=== PATIENT | male | born 1950 | race African-American/Black ===

== ENCOUNTER 2019-04-06 23:18 | Emergency (ER) | payer MEDICARE, MEDICAID ==
[~2019-04-06] VITALS: Ht 167.6 cm; Wt 70.3 kg
[~2019-04-06 23:18] MED LIST: AZITHROMYCIN250 MG ORAL; ROBITUSSIN DM5 ML ORAL; TYLENOL325 MG ORAL
[2019-04-06] MEDS ORDERED: Pantoprazole Inj IVP ONE (23:45)
[2019-04-06] MEDS ORDERED: Nitroglycerin Subl 0.4mg tab SL PRN (23:45)
[2019-04-06] MEDS ORDERED: Aspirin Baby 81mg ORAL ONE (23:45)
--- NOTE | 2019-04-06 23:45 | NUR ---
ED Nurse Note: recieved pt from home, here with c/o chest pain x 2 days intermittently, is currently present, aching at 9/10, pt has high anxiety and while trying to assess is having argument with at bedside, pt assisted to gown and cardiac monitoring, iv line placed also and labs drawn, no sob or labored breathing or any other discomforts reported, will continue to closely monitor and resume care as ordered.
--- NOTE | 2019-04-06 23:47 | Emergency Room Report ---
History of Present Illness General Chief Complaint: Chest Pain Source: Patient Present Illness HPI This is a 69-year-old male with history diabetes and high blood pressure. He presents with chief complaint of chest pain. Onset was 45 minutes ago. Woke him up from sleep. Pain is missed sternal area. Radiating to the left shoulder. No nausea no vomiting. Slight shortness of breath and diaphoresis. No exertional component. Rest made it better. He has a history of reflux and gas for which he took Pepto-Bismol. Never had this problem before. Pain was initially 8 out of 10. Now 4 out of 10. Allergies: Coded Allergies: No Known Allergies (Unverified , 11/16/14) Patient History Past Medical History: see triage record, old chart reviewed, DM, HTN Past Surgical History: other Pertinent Family History: none Social History: Denies: smoking - Quit 20 years ago Immunizations: other Reviewed Nursing Documentation: PMH: Agreed; PSxH: Agreed Nursing Documentation-PMH Hx Cardiac Problems: Yes Hx Hypertension: Yes Hx Diabetes: Yes Review of Systems Eye: Denies: eye pain, blurred vision ENT: Denies: ear pain, nose congestion, throat swelling Respiratory: Denies: cough, shortness of breath Cardiovascular: Reports: chest pain; Denies: palpitations Gastrointestinal: Denies: abdominal pain, diarrhea, nausea, vomiting Musculoskeletal: Denies: back pain, joint pain Skin: Denies: rash Neurological: Denies: headache, numbness Endocrine: Denies: increased thirst, increased urine Hematologic/Lymphatic: Denies: easy bruising All Other Systems: negative except mentioned in HPI Physical Exam Vital Signs Date Time Temp Pulse Resp B/P (MAP) Pulse Ox O2 Delivery O2 Flow Rate FiO2 04/06/19 23:28 74 27 150/54 (86) 100 vitals with high blood pressure Sp02 EP Interpretation: reviewed, normal General Appearance: well appearing, no apparent distress, alert Head: normocephalic, atraumatic Eyes: bilateral eye PERRL, bilateral eye EOMI ENT: hearing grossly normal, normal pharynx Neck: full range of motion, supple, no meningismus Respiratory: chest non-tender, lungs clear, normal breath sounds Cardiovascular #1: regular rate, rhythm, no murmur Gastrointestinal: normal bowel sounds, non tender, no mass, no organomegaly, no bruit, non-distended Musculoskeletal: back normal, gait/station normal, normal range of motion Psychiatric: mood/affect normal Skin: warm/dry Medical Decision Making Diagnostic Impression: Primary Impression: Chest pain Qualified Codes: R07.9 - Chest pain, unspecified Additional Impression: ACS (acute coronary syndrome) ER Course Patient presents with chest pain and needing to his left shoulder. Pain resolved after aspirin and nitroglycerin. His risk factors include his age, male sex, high blood pressure, and diabetes. Based on his risk factors, I advised him to be admitted to the hospital for further workup. Patient refused. He does discussed it and they wanted to leave AMA. I contact his doctor to let him know. He will need further workup as an outpatient. She is competent to sign out AMA. Lab Results Impression labs normal EKG Diagnostic Results Rate: normal Rhythm: NSR ST Segments: no acute changes ASA given to the pt in ED: Yes Rhythm Strip Diag. Results EP Interpretation: yes Rate: 72 Rhythm: NSR, no PVC's, no ectopy Chest X-Ray Diagnostic Results Chest X-Ray Diagnostic Results : Chest X-Ray Ordered: Yes # of Views/Limited/Complete: 1 View Indication: Chest Pain EP Interpretation: Yes Interpretation: no consolidation, no effusion, no pneumothorax, no acute cardiopulmonary disease Impression: No acute disease Electronically Signed by: Hao Jeter MD Last Vital Signs Date Time Temp Pulse Resp B/P (MAP) Pulse Ox O2 Delivery O2 Flow Rate FiO2 04/06/19 23:28 74 27 150/54 (86) 100 Status: improved Disposition: AGAINST MEDICAL ADVICE Condition: Stable Patient Instructions: Nonspecific Chest Pain Additional Instructions: You presents with chest pain. Basically her risk factors, I recommend admission to the hospital for further workup. You are signing AGAINST MEDICAL ADVICE. He see her doctor as soon as possible for further workup. Return if change her mind. Call 911 if you continue to have chest pain. Hao Jeter MD April 06, 2019 23:47
[2019-04-06 23:51] LABS: EOSINOPHILS % (AUTO) 1.7 % (0.0-3.0); HEMATOCRIT 38.4 % (42.0-52.0); HEMOGLOBIN 13.2 G/DL (14.2-18.0); LYMPHOCYTES % (AUTO) 26.8 % (20.0-45.0); MEAN CORPUSCULAR VOLUME 88 FL (80-99); MONOCYTES % (AUTO) 8.8 % (1.0-10.0); NEUTROPHILS % (AUTO) 61.8 % (45.0-75.0); PLATELET COUNT 218 K/UL (150-450); RED BLOOD COUNT 4.39 M/UL (4.70-6.10); RED CELL DISTRIBUTION WIDTH 11.8 % (11.6-14.8); WHITE BLOOD COUNT 7.1 K/UL (4.8-10.8)
[2019-04-07 00:01] LABS: ANION GAP 4 mmol/L (5-15); BLOOD UREA NITROGEN 18 mg/dL (7-18); CALCIUM 8.9 MG/DL (8.5-10.1); CARBON DIOXIDE 33 MMOL/L (21-32); CHLORIDE 103 MMOL/L (98-107); CREATININE 1.2 MG/DL (0.55-1.30); POTASSIUM 4.1 MMOL/L (3.5-5.1); SODIUM 139 MMOL/L (136-145)
[2019-04-07 00:15] LABS: ALANINE AMINOTRANSFERASE 27 U/L (12-78); ALBUMIN 3.8 G/DL (3.4-5.0); ALBUMIN/GLOBULIN RATIO 1.1 (1.0-2.7); ALKALINE PHOSPHATASE 61 U/L (46-116); ASPARTATE AMINO TRANSFERASE 20 U/L (15-37); BILIRUBIN,TOTAL 0.4 MG/DL (0.2-1.0); CKMB 1.6 NG/ML (0.0-3.6); CREATINE KINASE 82 U/L (26-308)
[2019-04-07 00:45] VITALS: BP 138/53
--- NOTE | 2019-04-07 01:00 | NUR ---
ED Nurse Note: PT IS BEING D/C TO HOME, PT DOES NOT WANT TO STAY IN HOSPITAL OVERNIGHT, MD SPOKE WITH PT AND , PT IS BEING D/C TO F/U WITH PMD, PT IS AWAKE AND ALERT, AMBULATORY WITH STEADY GAIT, NO SOB OR LABORED BREATHIHNG, SKIN IS WARM AND DRY, IV LINE REMOVED WITHOUT COMPLICATIONS OR BLEEDING, ARMBAND ALSO, NAD NOTED DURING D/C TO HOME.
[2019-04-07 01:03] VITALS: BP 138/53
--- NOTE | 2019-04-07 14:39 | Cardiology Report ---
APPROVED REPORT EKG Measurement Heart [id number] Normal sinus rhythm Minimal voltage criteria for LVH, may be normal variant Borderline ECG
--- NOTE | 2019-04-08 13:14 | Diagnostic Imaging Report ---
EXAM: XR Chest, 1 View CLINICAL HISTORY: SOB TECHNIQUE: Frontal view of the chest. COMPARISON: No relevant prior studies available. FINDINGS: Lungs: Unremarkable. No consolidation. Pleural space: Unremarkable. No pneumothorax. Heart: Unremarkable. No cardiomegaly. Mediastinum: Unremarkable. Bones/joints: Unremarkable. IMPRESSION: Normal chest x-ray.
== END 2019-04-07 01:05 | disposition left against medical advice (07) ==
LOC: EMR 23:50
DX: R07.9 Chest pain, unspecified (principal); I24.9 Acute ischemic heart disease, unspecified; I10 Essential (primary) hypertension; E11.9 Type 2 diabetes mellitus without complications; Z87.891 Personal history of nicotine dependence; M25.512 Pain in left shoulder
CPT/HCPCS: 36415; 71045; 80053; 82550; 82553; 84484; 85025; 93005; 96361; 96374; 99284; C9113

== ENCOUNTER 2019-12-06 17:14 | Inpatient (IN) | payer MEDICARE, MEDICAID ==
[~2019-12-06] VITALS: Ht 167.6 cm; Wt 72.6 kg
--- NOTE | 2019-12-06 17:29 | Emergency Room Report ---
History of Present Illness General Chief Complaint: To Be Triaged Source: Patient (Ruben Garland MD) Present Illness HPI Patient presents with severe epigastric and chest pain radiating to his shoulder on the left-hand side. He had this 3 years ago was evaluated at [facility]. He says that it was his stomach. Patient is diabetic. He does not smoke. He says his is not been his heart in the past. The pain began suddenly today. It is sharp and pressure. He denies fevers, nausea, vomiting, diarrhea. His family report that he is stoic and does not complain about pain usually. Patient is a diabetic. No polyuria or polydipsia. Patient reports problems with his prostate. He is on medication. No sore throat, palpitations, dysuria, shortness of breath, joint pain, rashes, depression, anxiety, visual changes, dizziness, headache. (Ruben Garland MD) Allergies: Coded Allergies: No Known Allergies (Unverified , 11/16/14) Patient History Past Medical History: see triage record Social History: Denies: smoking Social History Narrative Working Reviewed Nursing Documentation: PMH: Agreed; PSxH: Agreed (Ruben Garland MD) Nursing Documentation-PMH Hx Cardiac Problems: Yes Hx Hypertension: Yes Hx Diabetes: Yes (Ruben Garland MD) Review of Systems All Other Systems: negative except mentioned in HPI (Ruben Garland MD) Physical Exam Vital Signs Date Time Temp Pulse Resp B/P (MAP) Pulse Ox O2 Delivery O2 Flow Rate FiO2 12/06/20 17:25 97.5 75 18 188/65 (106) 100 Room Air Sp02 EP Interpretation: reviewed, normal General Appearance: alert, GCS 15, non-toxic, mild distress Head: normocephalic Eyes: bilateral eye normal inspection, bilateral eye PERRL, bilateral eye EOMI ENT: moist mucus membranes Neck: supple Respiratory: lungs clear, normal breath sounds Cardiovascular #1: regular rate, rhythm Cardiovascular #2: 2+ radial (R) Gastrointestinal: normal inspection, no mass, non-distended, no guarding, no rebound, tenderness - Epigastric Genitourinary: no CVA tenderness Musculoskeletal: back normal, normal range of motion Neurologic: alert, oriented x3, grossly normal Psychiatric: anxious - In pain Skin: no rash, warm/dry (Ruben Garland MD) Medical Decision Making Diagnostic Impression: Primary Impression: Chest pain Qualified Codes: R07.9 - Chest pain, unspecified Additional Impressions: Epigastric pain Elevated liver function tests Hyperglycemia Fever Qualified Codes: R50.9 - Fever, unspecified Cholecystitis, acute with cholelithiasis Qualified Codes: K80.00 - Calculus of gallbladder with acute cholecystitis without obstruction ER Course Patient presents with severe epigastric and left-sided chest pain. Differential includes acute myocardial infarction, gastritis, esophageal reflux , pneumothorax, pulmonary embolus amongst others. Clinically this does not appear to be a pulmonary embolus. Patient evaluated with EKG, chest x-ray and labs. 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 The patient will be given a GI cocktail and aspirin and morphine with Zofran Patient was in severe distress. Dilaudid given with Reglan and Benadryl. EKG without injury but ST changes septally. Chest x-ray unremarkable. Normal white count. Glucose 220. Elevated liver function tests but normal alk phos and bilirubin. Lipase normal. Pain improved. CT with gallbladder process. Given normal alk phos and bilirubin doubt primary gallbladder issue. The patient reports that the pain was more epigastric and right upper quadrant. According to the son who is MD surgeon he states that there was an abnormal finding in the gallbladder in the past. Patient needs admission for observation due to the level of distress which is resolved at this time. Consideration for repeat troponins, echocardiogram cardia cardiology consult and possible ultrasound of the right upper quadrant. Patient's physician asked that we admit to Dr. Goodson. Patient now with fever. Also O2 sat decreased. Septic w/u. Tylenol and antibiotics ordered. Fluid bolus and hydration also ordered. Signed out to Dr. Jeter for review of ultrasound. Abdomen is soft without guarding or rebound. Nonsurgical. Laboratory Tests Test 12/06/19 17:34 White Blood Count 9.9 K/UL (4.8-10.8) Red Blood Count 4.46 M/UL (4.70-6.10) L Hemoglobin 14.0 G/DL (14.2-18.0) L Hematocrit 40.0 % (42.0-52.0) L Mean Corpuscular Volume 90 FL (80-99) Mean Corpuscular Hemoglobin 31.3 PG (27.0-31.0) H Mean Corpuscular Hemoglobin Concent 34.9 G/DL (32.0-36.0) Red Cell Distribution Width 11.9 % (11.6-14.8) Platelet Count 241 K/UL (150-450) Mean Platelet Volume 7.2 FL (6.5-10.1) Neutrophils (%) (Auto) 77.6 % (45.0-75.0) H Lymphocytes (%) (Auto) 15.4 % (20.0-45.0) L Monocytes (%) (Auto) 6.2 % (1.0-10.0) Eosinophils (%) (Auto) 0.4 % (0.0-3.0) Basophils (%) (Auto) 0.5 % (0.0-2.0) Prothrombin Time 10.1 SEC (9.30-11.50) Prothrombin Time INR 0.9 (0.9-1.1) Activated Partial Thromboplast Time 26 SEC (23-33) Sodium Level 141 MMOL/L (136-145) Potassium Level 3.9 MMOL/L (3.5-5.1) Chloride Level 103 MMOL/L (98-107) Carbon Dioxide Level 29 MMOL/L (21-32) Anion Gap 9 mmol/L (5-15) Blood Urea Nitrogen 17 mg/dL (7-18) Creatinine 1.3 MG/DL (0.55-1.30) Estimate Glomerular Filtration Rate > 60 mL/min (>60) Glucose Level 220 MG/DL (74-106) H Calcium Level 9.0 MG/DL (8.5-10.1) Magnesium Level 2.0 MG/DL (1.8-2.4) Total Bilirubin 1.3 MG/DL (0.2-1.0) H Direct Bilirubin 0.8 MG/DL (0.0-0.3) H Aspartate Amino Transferase (AST) 375 U/L (15-37) H Alanine Aminotransferase (ALT) 189 U/L (12-78) H Alkaline Phosphatase 82 U/L (46-116) Total Creatine Kinase 76 U/L (26-308) Troponin I 0.000 ng/mL (0.000-0.056) Pro-B-Type Natriuretic Peptide 82 pg/mL (0-125) Total Protein 7.8 G/DL (6.4-8.2) Albumin 4.0 G/DL (3.4-5.0) Globulin 3.8 g/dL Albumin/Globulin Ratio 1.1 (1.0-2.7) Lipase 98 U/L (73-393) (Ruben Garland MD) ER Course Patient signed out to me. He is awaiting a bed. He spiked a fever here and ultrasound was ordered. Ultrasound show small gallstone in the gallbladder. Gallbladder wall measures 6 mm in maximal thickness. There is trace pericholecystic fluid. Antibiotics are restarted on this patient. Family said that he has a history of problem with the gallbladder and was admitted at [facility] before. Asked to be transferred to [facility]. I called [facility] transfer center and there is no beds. Because of this, patient will be admitted here. Chest pain is probably secondary to cholecystitis. (Hao Jeter MD) EKG Diagnostic Results Rate: normal Rhythm: NSR ST Segments: other - Nonspecific ST-T wave changes with septal ST depression minimal (Ruben Garland MD) Rhythm Strip Diag. Results EP Interpretation: yes Rhythm: NSR, no PVC's, no ectopy (Ruben Garland MD) Chest X-Ray Diagnostic Results Chest X-Ray Diagnostic Results : Chest X-Ray Ordered: Yes # of Views/Limited/Complete: 1 View Indication: Chest Pain EP Interpretation: Yes Interpretation: no effusion, no pneumothorax, other - Atelectasis left base Impression: Other Electronically Signed by: Electronically signed by Ruben Garland MD (Ruben Garland MD) CT/MRI/US Diagnostic Results CT/MRI/US Diagnostic Results : Imaging Test Ordered: abd/pelvis Impression 15 mm polyp versus sludge ball versus stone in the body of the gallbladder. Suspect trace of pericholecystic fluid. (Ruben Garland MD) CT/MRI/US Diagnostic Results : Imaging Test Ordered: Ultrasound Impression Read by nurse educator. Small gallstone in the gallbladder. Trace pericholecystic fluid. (Hao Jeter MD) Last Vital Signs Date Time Temp Pulse Resp B/P (MAP) Pulse Ox O2 Delivery O2 Flow Rate FiO2 12/07/19 00:45 98.2 109 19 133/53 94 Room Air Status: improved (Ruben Garland MD) Disposition: PLACE IN OBSERVATION Condition: Serious Ruben Garland MD Dec 06, 2019 17:29 Hao Jeter MD Dec 07, 2019 00:37
[2019-12-06] MEDS ORDERED: Aspirin Baby 81mg ORAL ONE (17:30)
[2019-12-06] MEDS ORDERED: Lidocaine 2% Visc 15ml soln ORAL ONE (17:30)
[2019-12-06] MEDS ORDERED: Morphine Sulfate 4mg/ml Inj (IV USE ONLY) IVP ONE (17:30)
[2019-12-06] MEDS ORDERED: Mylanta II UD 30ml ORAL ONE (17:30)
--- NOTE | 2019-12-06 17:30 | NUR ---
ED Nurse Note: Patient walked in from home c/o abdominal pain, CP x 1 hr radiating to lower back while at work. Pt rates pain at 10/10. Pt is screaming and moaning in pain. Respirations tachy, O2 saturation above 94%. BP in 180s systolic. Pt placed in monitor bed.
[2019-12-06 17:40] VITALS: BP 188/65
[2019-12-06] MEDS ORDERED: Metoclopramide 10mg/2ml Inj IVP ONE (18:00)
[2019-12-06] MEDS ORDERED: HYDROmorphone 1mg/ml Carpuject IVP ONE (18:00)
[2019-12-06] MEDS ORDERED: DiphenhydrAMINE 50mg/ml Inj IVP ONE (18:00)
--- NOTE | 2019-12-06 18:13 | NUR ---
ED Nurse Note: Let EDMD know patient was still in severe pain. New orders for pain medication carried out.
--- NOTE | 2019-12-06 18:23 | Diagnostic Imaging Report ---
EXAM: XR Chest, 1 View CLINICAL HISTORY: CP TECHNIQUE: Frontal view of the chest. COMPARISON: 04/06/19 FINDINGS: Lungs: Subtle linear opacities over bilateral lower lung zones. Lungs are underinflated. Pleural space: Unremarkable. No pneumothorax. Heart: Unremarkable. No cardiomegaly. Mediastinum: Unremarkable. Bones/joints: Unremarkable. IMPRESSION: Likely bibasilar atelectasis related to underinflation.
[2019-12-06 18:25] LABS: BASOPHILS % (AUTO) 0.5 % (0.0-2.0); EOSINOPHILS % (AUTO) 0.4 % (0.0-3.0); LYMPHOCYTES % (AUTO) 15.4 % (20.0-45.0); MEAN CORPUSCULAR VOLUME 90 FL (80-99); MONOCYTES % (AUTO) 6.2 % (1.0-10.0); NEUTROPHILS % (AUTO) 77.6 % (45.0-75.0); PLATELET COUNT 241 K/UL (150-450); RED BLOOD COUNT 4.46 M/UL (4.70-6.10); RED CELL DISTRIBUTION WIDTH 11.9 % (11.6-14.8); WHITE BLOOD COUNT 9.9 K/UL (4.8-10.8)
[2019-12-06 18:44] LABS: INR 0.9 (0.9-1.1)
[2019-12-06] MEDS ORDERED: Omnipaque-300 100ml vial INJ PRN (18:45)
[2019-12-06 18:59] LABS: ANION GAP 9 mmol/L (5-15); BLOOD UREA NITROGEN 17 mg/dL (7-18); CARBON DIOXIDE 29 MMOL/L (21-32); CHLORIDE 103 MMOL/L (98-107); CREATININE 1.3 MG/DL (0.55-1.30); POTASSIUM 3.9 MMOL/L (3.5-5.1); SODIUM 141 MMOL/L (136-145)
[2019-12-06 19:10] LABS: ALANINE AMINOTRANSFERASE 189 U/L (12-78); ALBUMIN/GLOBULIN RATIO 1.1 (1.0-2.7); ALKALINE PHOSPHATASE 82 U/L (46-116); ASPARTATE AMINO TRANSFERASE 375 U/L (15-37); BILIRUBIN,TOTAL 1.3 MG/DL (0.2-1.0); CREATINE KINASE 76 U/L (26-308)
[2019-12-06 19:11] LABS: BILIRUBIN,DIRECT 0.8 MG/DL (0.0-0.3)
--- NOTE | 2019-12-06 19:26 | NUR ---
HAND-OFF: Report given to AYAKA Zapata. Pt in stable condition; plan of care endorsed.
--- NOTE | 2019-12-06 20:10 | NUR ---
ED Nurse Note: Patient went over for CT.
--- NOTE | 2019-12-06 20:32 | NUR ---
ED Nurse Note: Patient returned from CT.
--- NOTE | 2019-12-06 21:17 | Diagnostic Imaging Report ---
EXAM: CT Abdomen and Pelvis With Intravenous Contrast CLINICAL HISTORY: Patient complaining of chest and abdominal pain for one hour. Radiating to lower back. Not clear of what kind of work he has. No other history given. TECHNIQUE: Axial computed tomography images of the abdomen and pelvis with intravenous contrast. CTDI is 23.6 mGy and DLP is 1416.1 mGy-cm. One or more of the following dose reduction techniques were used: automated exposure control, adjustment of the mA and/or kV according to patient size, use of iterative reconstruction technique. Coronal and sagittal reconstructions are performed COMPARISON: No relevant prior studies available. FINDINGS: Lung bases: Small amount of residual atelectasis. ABDOMEN: Liver: Unremarkable. No mass. Gallbladder and bile ducts: 15 mm polyps, sludge ball versus stone in the body of the gallbladder, best seen on series image 27. Suspect trace of pericholecystic fluid. Moderate common duct dilatation measuring up in maximum, likely patient's age. Pancreas: Unremarkable. No mass. No ductal dilation. Spleen: Unremarkable. No splenomegaly. Adrenals: Unremarkable. No mass. Kidneys and ureters: Unremarkable. No solid mass. No hydronephrosis. Stomach and bowel: Unremarkable. No obstruction. No mucosal thickening. PELVIS: Appendix: No findings to suggest acute appendicitis. Bladder: Unremarkable. No mass. Reproductive: Prostatectomy ABDOMEN and PELVIS: Intraperitoneal space: Unremarkable. No free air. No significant fluid collection. Bones/joints: Osteopenia. Moderate degenerative change. Soft tissues: Unremarkable. Vasculature: Moderate amount of atherosclerotic calcifications. No abdominal aortic aneurysm. Lymph nodes: Unremarkable. No enlarged lymph nodes. IMPRESSION: 15 mm polyps, sludge ball versus stone in the body of the gallbladder. Suspect trace of pericholecystic fluid. These findings are nonspecific.
--- NOTE | 2019-12-06 22:24 | NUR ---
ED Nurse Note: PATIENT RESTING COMFORTABLY WITH SON AT BEDSIDE, VITAL SIGNS STABLE AND DOCUMENTED. WILL CONTINUE TO MONITOR.
[2019-12-06 22:25] VITALS: BP 131/53
--- NOTE | 2019-12-06 22:33 | NUR ---
ED Nurse Note: PATIENT IS FEBRILE AND TACHYCARDIC, ERMD INFORMED AND FULL VITAL SIGNS DOCUMENTED.
[2019-12-06] MEDS ORDERED: Cefepime HCl 1 GM in D5W 55 ML IVPB ONE (22:45)
--- NOTE | 2019-12-06 23:30 | NUR ---
ED Nurse Note: Patient went with radiology special procedure tech for lefty.
--- NOTE | 2019-12-06 23:59 | NUR ---
ED Nurse Note: Patoent returned from ultrasound.
--- NOTE | 2019-12-07 00:19 | Diagnostic Imaging Report ---
EXAM: US Abdomen Complete CLINICAL HISTORY: ABD PAIN TECHNIQUE: Real-time ultrasound of the abdomen with image documentation. COMPARISON: CT abdomen and pelvis from 12/06/2019. FINDINGS: Liver: Liver measures 14.8 cm longitudinally. No intrahepatic bile duct dilation. Gallbladder: Small stones in the gallbladder. Gallbladder wall measures 6 mm in maximal thickness. No sonographic Harper sign. However, patient is medicated. Trace pericholecystic fluid, nonspecific. Common bile duct: Common bile duct measures 2 mm in maximum diameter. No stones. No dilation. Pancreas: Unremarkable as visualized. Kidneys: Right kidney measures 11 cm longitudinally. Left kidney measures 10.8 cm longitudinally. No stones. No hydronephrosis. Spleen: Unremarkable. No splenomegaly. Aorta: Unremarkable. No aneurysm. Inferior vena cava: Unremarkable. IMPRESSION: 1. Small stones in the gallbladder. 2. Gallbladder wall measures 6 mm in maximal thickness. 3. Trace of pericholecystic fluid. 4. These findings are nonspecific.
--- NOTE | 2019-12-07 00:24 | NUR ---
Contacted [facility] for possible transfer(pt.request)-no beds at [facility]- aware.
--- NOTE | 2019-12-07 00:36 | NUR ---
ED Nurse Note: Both antibiotics dne, IV fluid still running, IV patent but runs slow. Will continue to monitor.
[2019-12-07 00:45] VITALS: BP 133/53
[2019-12-07 01:09] LABS: APPEARANCE,URINE CLEAR; BILIRUBIN, URINE NEGATIVE (NEGATIVE); GLUCOSE, URINE (UA) NEGATIVE (NEGATIVE); KETONES,URINE NEGATIVE (NEGATIVE); LEUKOCYTE ESTERASE ,URINE NEGATIVE (NEGATIVE); NITRITE,URINE NEGATIVE (NEGATIVE); PH,URINE 6.5 (4.5-8.0); PROTEIN,URINE NEGATIVE (NEGATIVE); UROBILINOGEN,URINE NORMAL MG/DL (0.0-1.0)
[2019-12-07 01:10] LABS: COLOR,URINE YELLOW
--- NOTE | 2019-12-07 01:25 | NUR ---
ED Nurse Note: Called and rendered report to Sigrid MARLEY.
--- NOTE | 2019-12-07 01:30 | NUR ---
ED Nurse Note: Patient transported to [facility] without incident with fluids running, 500ml N/S. Patient's wallet along with 3x visas, 3x [employer] cards and 1 [employer], and $92.00 taken by patient's son at bedside.
--- NOTE | 2019-12-07 01:59 | NUR ---
NURSE NOTES: Received patient in bed from ED, transported via gurney, son is at the bedside, patient is awake, alert, oriented x 4, speaks Farsi and Armenian, ambulates with steady gate. IV site is clean dry and intact. Oriented to the room,call light is within reach, bed is lowered, locked and alarm is on. MD called for admit orders. belongings list is signed, items are accounted for.
[2019-12-07 04:00] VITALS: BP 111/53
--- NOTE | 2019-12-07 05:11 | NUR ---
NURSE NOTES: Called MD for admit orders, left a voice message
--- NOTE | 2019-12-07 07:35 | NUR ---
NURSE NOTES: Received report from AYAKA Matta. Rounding done with outgoing nurse. Pt is asleep. Bed in lowest position, call light within reach. Will continue to monitor.
--- NOTE | 2019-12-07 07:50 | NUR ---
NURSE NOTES: Dr. Goodson ordered admin ordered by phone. All order read back and will put it in.
[2019-12-07 08:00] VITALS: BP 135/56
[2019-12-07] MEDS ORDERED: DiphenhydrAMINE 25mg Tab ORAL PRN (08:15)
[2019-12-07] MEDS ORDERED: Nitroglycerin Subl 0.4mg tab SL PRN (08:15)
[2019-12-07] MEDS ORDERED: Miralax 17gm pkt ORAL PRN (08:15)
[2019-12-07] MEDS ORDERED: Morphine Sulfate 2mg/ml Inj(IV/IM USE ONLY) IVP PRN (08:30)
--- NOTE | 2019-12-07 08:50 | NUR ---
NURSE NOTES: Patient transferred to room 202-2 in stable condition. Patient still asleep. No chest pain noted. Report was given to Christiano, charge nurse. and daughter is at bedside.
[2019-12-07] MEDS ORDERED: D5 1/2NS 1,000 ML IV SCH (09:00)
[2019-12-07] MEDS: Pantoprazole Inj IVP SCH (09:03)
[2019-12-07] MEDS: Heparin 5000 units/ml inj SUBQ SCH ×2 (09:04→21:00)
[2019-12-07] MEDS: Cefepime HCl 1 GM in D5W 55 ML IVPB SCH ×2 (09:56→20:58)
[2019-12-07 10:43] LABS: ANION GAP 11 mmol/L (5-15); BLOOD UREA NITROGEN 17 mg/dL (7-18); CARBON DIOXIDE 26 MMOL/L (21-32); CHLORIDE 107 MMOL/L (98-107); CREATININE 1.3 MG/DL (0.55-1.30); POTASSIUM 3.9 MMOL/L (3.5-5.1); SODIUM 144 MMOL/L (136-145)
--- NOTE | 2019-12-07 10:56 | NUR ---
NURSE NOTES: Received pt from [facility] at 0900, pt is sleeping, pt is in RA, no SOB or acute respiratory distress noted. pt has intact iv access LAC 20G is running well. pt's and daughter are on bed side. pt is NPO, Dr davila notified regarding troponin 0.063, waiting to call back. all needs attended, bed is locked and is in the lowest position, call light within easy reach. will continue to monitor.
--- NOTE | 2019-12-07 11:08 | NUR ---
NURSE NOTES: Dr KOENIG called back and ordered to repeat troponin in AM, noted and carried out. will continue to monitor.
--- NOTE | 2019-12-07 11:12 | Consultation ---
History of Present Illness General Date patient seen: Dec 07, 2019 Reason for Hospitalization: Chest Pain Present Illness HPI This is a very pleasant 69-year-old male with history of diabetes that presented to [facility] emergency department for evaluation of epigastric abdominal pain with radiation to the back. Onset earlier day of admission and persistent and worsening therefore came in for evaluation. No nausea vomiting. Labs identified lactic acidosis. CT identified gallbladder polyps and stones. Ultrasound performed identifying pericholecystic fluid 6 mm wall and stones. Patient febrile. Admitted for further care and management. Surgery called to evaluate and assist with care. Patient seen, patient evaluated, chart reviewed. Patient states that since admission his pain is significantly improved. Currently no nausea vomiting fever chills. No leukocytosis. No prior similar events. No relationship to food or oral intake. Normal bowel movement and flatus. States that when he had pain was 10 out of 10 sharp right upper quadrant epigastric with radiation to the mid back Allergies: Coded Allergies: No Known Allergies (Unverified , 11/16/14) Patient History History Provided By: Patient, Medical Record, PMD Healthcare decision maker Resuscitation status Full Code Advanced Directive on File Past Medical/Surgical History Past Medical/Surgical History: (1) Upper respiratory infection (2) Upper respiratory infection (3) Sepsis (4) Cholecystitis with cholangitis (5) Fever (6) Hyperglycemia (7) Epigastric pain (8) Chest pain (9) Elevated liver function tests (10) Cholecystitis, acute with cholelithiasis Review of Systems Review of Symptoms General ROS: no weight loss or fever Psychological ROS: no depression or mood changes, no memory loss Ophthalmic ROS: no visual changes or eye irritation ENT ROS: no nasal congestion, hearing loss, dizziness Allergy and Immunology ROS: no allergic symptoms or urticaria Hematological and Lymphatic ROS: no swollen glands, unusual bleeding or bruising Endocrine ROS: no polyuria, polydipsia, weight changes, temperature intolerance Respiratory ROS: no cough, shortness of breath, or wheezing Cardiovascular ROS: no chest pain or dyspnea on exertion Gastrointestinal ROS: abdominal pain, bright red blood in stool. Musculoskeletal ROS: no myalgias or arthralgias Neurological ROS: no TIA or stroke symptoms Dermatological ROS: no new or changing skin lesions, rashes or pruritis Physical Exam Physical Exam General appearance: alert, cooperative, no distress, appears stated age Head: Normocephalic, without obvious abnormality, atraumatic Eyes: conjunctivae/corneas clear. PERRL, EOM's intact. Fundi benign Throat: Lips, mucosa, and tongue normal. Teeth and gums normal Neck: supple, symmetrical, trachea midline, no adenopathy, thyroid: not enlarged, symmetric, no tenderness/mass/nodules, no carotid bruit and no JVD Lungs: clear to auscultation bilaterally Heart: regular rate and rhythm, S1, S2 normal, no murmur, click, rub or gallop Abdomen: soft, mild discomfort / tender epigastric on palpation. Bowel sounds normal. No masses, no organomegaly Extremities: extremities normal, atraumatic, no cyanosis or edema Pulses: 2+ and symmetric Skin: Skin color, texture, turgor normal. No rashes or lesions Neurologic: Grossly normal Last 24 Hour Vital Signs Date Time Temp Pulse Resp B/P (MAP) Pulse Ox O2 Delivery O2 Flow Rate FiO2 12/07/19 09:37 85 12/07/19 08:00 98.6 86 18 135/56 (82) 95 12/07/19 04:00 100.1 100 18 111/53 (72) 95 12/07/19 02:05 Room Air 12/07/19 01:30 98.2 109 19 133/53 94 Room Air 12/07/19 00:45 98.2 109 19 133/53 94 Room Air 12/07/19 00:19 98.2 12/06/19 22:25 101.3 111 24 131/53 90 Room Air 12/06/19 17:40 97.5 92 18 188/65 100 Room Air 12/06/19 17:40 91 18 Room Air 12/06/19 17:25 97.5 75 18 188/65 (106) 100 Room Air Intake and Output 12/06/19 12/07/19 19:00 07:00 Intake Total 0 ml Balance 0 ml Intake Oral 0 ml Laboratory Tests Test 12/06/19 17:34 12/06/19 22:55 12/06/19 23:20 12/07/19 00:35 White Blood Count 9.9 K/UL (4.8-10.8) Red Blood Count 4.46 M/UL (4.70-6.10) L Hemoglobin 14.0 G/DL (14.2-18.0) L Hematocrit 40.0 % (42.0-52.0) L Mean Corpuscular Volume 90 FL (80-99) Mean Corpuscular Hemoglobin 31.3 PG (27.0-31.0) H Mean Corpuscular Hemoglobin Concent 34.9 G/DL (32.0-36.0) Red Cell Distribution Width 11.9 % (11.6-14.8) Platelet Count 241 K/UL (150-450) Mean Platelet Volume 7.2 FL (6.5-10.1) Neutrophils (%) (Auto) 77.6 % (45.0-75.0) H Lymphocytes (%) (Auto) 15.4 % (20.0-45.0) L Monocytes (%) (Auto) 6.2 % (1.0-10.0) Eosinophils (%) (Auto) 0.4 % (0.0-3.0) Basophils (%) (Auto) 0.5 % (0.0-2.0) Prothrombin Time 10.1 SEC (9.30-11.50) Prothromb Time International Ratio 0.9 (0.9-1.1) Activated Partial Thromboplast Time 26 SEC (23-33) Sodium Level 141 MMOL/L (136-145) Potassium Level 3.9 MMOL/L (3.5-5.1) Chloride Level 103 MMOL/L (98-107) Carbon Dioxide Level 29 MMOL/L (21-32) Anion Gap 9 mmol/L (5-15) Blood Urea Nitrogen 17 mg/dL (7-18) Creatinine 1.3 MG/DL (0.55-1.30) Estimat Glomerular Filtration Rate > 60 mL/min (>60) Glucose Level 220 MG/DL (74-106) H Calcium Level 9.0 MG/DL (8.5-10.1) Magnesium Level 2.0 MG/DL (1.8-2.4) Total Bilirubin 1.3 MG/DL (0.2-1.0) H Direct Bilirubin 0.8 MG/DL (0.0-0.3) H Aspartate Amino Transf (AST/SGOT) 375 U/L (15-37) H Alanine Aminotransferase (ALT/SGPT) 189 U/L (12-78) H Alkaline Phosphatase 82 U/L (46-116) Total Creatine Kinase 76 U/L (26-308) Troponin I 0.000 ng/mL (0.000-0.056) Pro-B-Type Natriuretic Peptide 82 pg/mL (0-125) Total Protein 7.8 G/DL (6.4-8.2) Albumin 4.0 G/DL (3.4-5.0) Globulin 3.8 g/dL Albumin/Globulin Ratio 1.1 (1.0-2.7) Lipase 98 U/L (73-393) Lactic Acid Level 3.00 mmol/L (0.4-2.0) H 2.60 mmol/L (0.66-2.22) H Urine Color Yellow Urine Appearance Clear Urine pH 6.5 (4.5-8.0) Urine Specific [place] 1.010 (1.005-1.035) Urine Protein Negative (NEGATIVE) Urine Glucose (UA) Negative (NEGATIVE) Urine Ketones Negative (NEGATIVE) Urine Blood 1+ (NEGATIVE) H Urine Nitrite Negative (NEGATIVE) Urine Bilirubin Negative (NEGATIVE) Urine Urobilinogen Normal MG/DL (0.0-1.0) Urine Leukocyte Esterase Negative (NEGATIVE) Urine RBC 2-4 /HPF (0 - 0) H Urine WBC 0-2 /HPF (0 - 0) Urine Squamous Epithelial Cells Occasional /LPF Urine Bacteria Occasional /HPF (NONE) Test 12/07/19 09:30 Sodium Level 144 MMOL/L (136-145) Potassium Level 3.9 MMOL/L (3.5-5.1) Chloride Level 107 MMOL/L (98-107) Carbon Dioxide Level 26 MMOL/L (21-32) Anion Gap 11 mmol/L (5-15) Blood Urea Nitrogen 17 mg/dL (7-18) Creatinine 1.3 MG/DL (0.55-1.30) Estimat Glomerular Filtration Rate > 60 mL/min (>60) Glucose Level 158 MG/DL (74-106) H Calcium Level 8.0 MG/DL (8.5-10.1) L Troponin I 0.063 ng/mL (0.000-0.056) Height (Feet): 5 Height (Inches): 8.00 Weight (Pounds): 160 Medications Current Medications Medications (Trade) Dose Ordered Sig/Mariluz Route PRN Reason Start Time Stop Time Status Last Admin Dose Admin Acetaminophen (Tylenol) 650 mg Q4H PRN ORAL fever 1/26/20 08:15 01/06/20 08:14 Acetaminophen (Tylenol) 650 mg Q6H PRN ORAL Mild Pain (Pain Scale 1-3) 12/07/19 08:30 01/06/20 08:29 Barium Sulfate (Readi-Cat 2) 450 ml NOW PRN ORAL Radiology Procedure 12/06/19 18:45 12/08/19 18:39 Cefepime HCl 1 gm/ Dextrose 55 ml @ 110 mls/hr EVERY 12 HOURS IVPB 12/07/19 09:00 12/14/19 08:59 12/07/19 09:56 Dextrose (Dextrose 50%) 25 ml Q30M PRN IV Hypoglycemia 12/07/19 08:15 01/06/20 08:14 Dextrose (Dextrose 50%) 25 ml Q30M PRN IV Hypoglycemia 12/07/19 08:30 01/06/20 08:29 Dextrose (Dextrose 50%) 50 ml Q30M PRN IV Hypoglycemia 12/07/19 08:15 01/06/20 08:14 Dextrose (Dextrose 50%) 50 ml Q30M PRN IV Hypoglycemia 12/07/19 08:30 01/06/20 08:29 Diphenhydramine HCl (Benadryl) 25 mg Q6H PRN ORAL Itching/Pruritis 12/07/19 08:15 01/06/20 08:14 Heparin Sodium (Porcine) (Heparin 5000 units/ml) 5,000 units EVERY 12 HOURS SUBQ 12/07/19 09:00 01/06/20 08:59 12/07/19 09:04 Insulin Aspart (NovoLOG) BEFORE MEALS AND HS SUBQ 12/07/19 11:30 01/06/20 11:29 Iohexol (OMNIPAQUE-300 100ml) 100 ml NOW PRN INJ Radiology Procedure 12/06/19 18:45 12/08/19 18:39 Metronidazole (Flagyl) 500 mg Q8HR ORAL 12/07/19 14:00 12/14/19 13:59 Morphine Sulfate (Morphine Sulfate) 2 mg Q4H PRN IVP Moderate Pain (Pain Scale 4-6) 12/07/19 08:30 12/14/19 08:29 Nitroglycerin (Ntg) 0.4 mg Q5M X 3 DOSES PRN SL Prn Chest Pain 12/07/19 08:15 01/06/20 08:14 Ondansetron HCl (Zofran) 4 mg Q6H PRN IVP Nausea & Vomiting 12/07/19 08:15 01/06/20 08:14 Pantoprazole (Protonix) 40 mg DAILY IVP 12/07/19 09:00 01/06/20 08:59 12/07/19 09:03 Polyethylene Glycol (Miralax) 17 gm HSPRN PRN ORAL Constipation 12/07/19 08:15 01/06/20 08:14 Sodium Chloride 1,000 ml @ 75 mls/hr [id number] IV 12/07/19 08:30 01/06/20 08:29 12/07/19 08:41 Temazepam (Restoril) 15 mg HSPRN PRN ORAL Insomnia 12/07/19 08:15 12/14/19 08:14 Assessment/Plan Problem List: (1) Epigastric pain Assessment & Plan: [age]-year-old male with epigastric pain right upper quadrant radiating to the back. febrile, no leukocytosis, lactic acidosis, CT and ultrasound as below likely acute cholecystitis N.p.o. IV fluids IV antibiotics Bowel rest HIDA scan Trend labs We will follow with recommendations Thank you for let me participate in patient's care ICD Codes: R10.13 - Epigastric pain SNOMED: 60681341, 841582158 (2) Cholecystitis, acute with cholelithiasis Assessment & Plan: IMPRESSION: 1. Small stones in the gallbladder. 2. Gallbladder wall measures 6 mm in maximal thickness. 3. Trace of pericholecystic fluid. 4. These findings are nonspecific. ABDOMEN: Liver: Unremarkable. No mass. Gallbladder and bile ducts: 15 mm polyps, sludge ball versus stone in the body of the gallbladder, best seen on series image 27. Suspect trace of pericholecystic fluid. Moderate common duct dilatation measuring up in maximum, likely patient's age. Pancreas: Unremarkable. No mass. No ductal dilation. Spleen: Unremarkable. No splenomegaly. Adrenals: Unremarkable. No mass. Kidneys and ureters: Unremarkable. No solid mass. No hydronephrosis. Stomach and bowel: Unremarkable. No obstruction. No mucosal thickening. PELVIS: Appendix: No findings to suggest acute appendicitis. Bladder: Unremarkable. No mass. Reproductive: Prostatectomy ABDOMEN and PELVIS: Intraperitoneal space: Unremarkable. No free air. No significant fluid collection. Bones/joints: Osteopenia. Moderate degenerative change. Soft tissues: Unremarkable. Vasculature: Moderate amount of atherosclerotic calcifications. No abdominal aortic aneurysm. Lymph nodes: Unremarkable. No enlarged lymph nodes. IMPRESSION: 15 mm polyps, sludge ball versus stone in the body of the gallbladder. Suspect trace of pericholecystic fluid. These findings are nonspecific. ICD Codes: K80.00 - Calculus of gallbladder with acute cholecystitis without obstruction SNOMED: 20571225 Qualifiers: Qualified Codes: K80.00 - Calculus of gallbladder with acute cholecystitis without obstruction Nii Castellano Dec 07, 2019 11:12
[2019-12-07] MEDS: NovoLOG Insulin Flexpen SUBQ SCH ×3 (11:30→21:00)
[2019-12-07 12:00] VITALS: BP 138/63
[2019-12-07] MEDS: metroNIDAZOLE 500mg tab ORAL SCH ×2 (13:25→20:57)
--- NOTE | 2019-12-07 14:42 | History & Physical ---
History and Physical History & Physicial Dictated for Int Med- Dr Goodson no. [id number]. Sergey Wolf MD Dec 07, 2019 14:42
--- NOTE | 2019-12-07 15:13 | Consultation ---
History of Present Illness General Date patient seen: Dec 07, 2019 Chief Complaint: Chest Pain Present Illness HPI 69 year old male with hx of diabetes presented to ER with CC of RUQ abdominal pain and fever. He had a CT scan in ER showing cholecystitis. He was initially admitted to med/surg but since he was c/o epigastric pain, he was transferred to [facility] to rule out ACS. Allergies: Coded Allergies: No Known Allergies (Unverified , 11/16/14) Patient History Healthcare decision maker Resuscitation status Full Code Advanced Directive on File Past Medical/Surgical History Past Medical/Surgical History: (1) Diabetes mellitus Review of Systems Constitutional: Reports: fever Gastrointestinal: Reports: abdominal pain All Other Systems: negative except mentioned in HPI Physical Exam General Appearance: WD/WN Lines, tubes and drains: peripheral HEENT: normocephalic, atraumatic Neck: non-tender, normal alignment Respiratory/Chest: chest wall non-tender, lungs clear Breasts: no masses Cardiovascular/Chest: normal peripheral pulses Abdomen: normal bowel sounds Genitourinary/Rectal: normal genital exam Neurologic: respiratory care faculty II-XII grossly normal Last 24 Hour Vital Signs Date Time Temp Pulse Resp B/P (MAP) Pulse Ox O2 Delivery O2 Flow Rate FiO2 12/07/19 12:00 99.8 87 20 138/63 (88) 95 12/07/19 11:48 92 12/07/19 09:37 85 12/07/19 09:00 Room Air 12/07/19 08:00 98.6 86 18 135/56 (82) 95 12/07/19 04:00 100.1 100 18 111/53 (72) 95 12/07/19 02:05 Room Air 12/07/19 01:30 98.2 109 19 133/53 94 Room Air 12/07/19 00:45 98.2 109 19 133/53 94 Room Air 12/07/19 00:19 98.2 12/06/19 22:25 101.3 111 24 131/53 90 Room Air 12/06/19 17:40 97.5 92 18 188/65 100 Room Air 12/06/19 17:40 91 18 Room Air 12/06/19 17:25 97.5 75 18 188/65 (106) 100 Room Air Intake and Output 12/06/19 12/07/19 19:00 07:00 Intake Total 0 ml Balance 0 ml Intake Oral 0 ml Laboratory Tests Test 12/06/19 17:34 12/06/19 22:55 12/06/19 23:20 12/07/19 00:35 White Blood Count 9.9 K/UL (4.8-10.8) Red Blood Count 4.46 M/UL (4.70-6.10) L Hemoglobin 14.0 G/DL (14.2-18.0) L Hematocrit 40.0 % (42.0-52.0) L Mean Corpuscular Volume 90 FL (80-99) Mean Corpuscular Hemoglobin 31.3 PG (27.0-31.0) H Mean Corpuscular Hemoglobin Concent 34.9 G/DL (32.0-36.0) Red Cell Distribution Width 11.9 % (11.6-14.8) Platelet Count 241 K/UL (150-450) Mean Platelet Volume 7.2 FL (6.5-10.1) Neutrophils (%) (Auto) 77.6 % (45.0-75.0) H Lymphocytes (%) (Auto) 15.4 % (20.0-45.0) L Monocytes (%) (Auto) 6.2 % (1.0-10.0) Eosinophils (%) (Auto) 0.4 % (0.0-3.0) Basophils (%) (Auto) 0.5 % (0.0-2.0) Prothrombin Time 10.1 SEC (9.30-11.50) Prothromb Time International Ratio 0.9 (0.9-1.1) Activated Partial Thromboplast Time 26 SEC (23-33) Sodium Level 141 MMOL/L (136-145) Potassium Level 3.9 MMOL/L (3.5-5.1) Chloride Level 103 MMOL/L (98-107) Carbon Dioxide Level 29 MMOL/L (21-32) Anion Gap 9 mmol/L (5-15) Blood Urea Nitrogen 17 mg/dL (7-18) Creatinine 1.3 MG/DL (0.55-1.30) Estimat Glomerular Filtration Rate > 60 mL/min (>60) Glucose Level 220 MG/DL (74-106) H Calcium Level 9.0 MG/DL (8.5-10.1) Magnesium Level 2.0 MG/DL (1.8-2.4) Total Bilirubin 1.3 MG/DL (0.2-1.0) H Direct Bilirubin 0.8 MG/DL (0.0-0.3) H Aspartate Amino Transf (AST/SGOT) 375 U/L (15-37) H Alanine Aminotransferase (ALT/SGPT) 189 U/L (12-78) H Alkaline Phosphatase 82 U/L (46-116) Total Creatine Kinase 76 U/L (26-308) Troponin I 0.000 ng/mL (0.000-0.056) Pro-B-Type Natriuretic Peptide 82 pg/mL (0-125) Total Protein 7.8 G/DL (6.4-8.2) Albumin 4.0 G/DL (3.4-5.0) Globulin 3.8 g/dL Albumin/Globulin Ratio 1.1 (1.0-2.7) Lipase 98 U/L (73-393) Lactic Acid Level 3.00 mmol/L (0.4-2.0) H 2.60 mmol/L (0.66-2.22) H Urine Color Yellow Urine Appearance Clear Urine pH 6.5 (4.5-8.0) Urine Specific [place] 1.010 (1.005-1.035) Urine Protein Negative (NEGATIVE) Urine Glucose (UA) Negative (NEGATIVE) Urine Ketones Negative (NEGATIVE) Urine Blood 1+ (NEGATIVE) H Urine Nitrite Negative (NEGATIVE) Urine Bilirubin Negative (NEGATIVE) Urine Urobilinogen Normal MG/DL (0.0-1.0) Urine Leukocyte Esterase Negative (NEGATIVE) Urine RBC 2-4 /HPF (0 - 0) H Urine WBC 0-2 /HPF (0 - 0) Urine Squamous Epithelial Cells Occasional /LPF Urine Bacteria Occasional /HPF (NONE) Test 12/07/19 09:30 Sodium Level 144 MMOL/L (136-145) Potassium Level 3.9 MMOL/L (3.5-5.1) Chloride Level 107 MMOL/L (98-107) Carbon Dioxide Level 26 MMOL/L (21-32) Anion Gap 11 mmol/L (5-15) Blood Urea Nitrogen 17 mg/dL (7-18) Creatinine 1.3 MG/DL (0.55-1.30) Estimat Glomerular Filtration Rate > 60 mL/min (>60) Glucose Level 158 MG/DL (74-106) H Calcium Level 8.0 MG/DL (8.5-10.1) L Troponin I 0.063 ng/mL (0.000-0.056) Height (Feet): 5 Height (Inches): 8.00 Weight (Pounds): 160 Medications Current Medications Medications (Trade) Dose Ordered Sig/Mariluz Route PRN Reason Start Time Stop Time Status Last Admin Dose Admin Acetaminophen (Tylenol) 650 mg Q4H PRN ORAL fever 12/07/19 08:15 01/06/20 08:14 12/07/19 13:29 Acetaminophen (Tylenol) 650 mg Q6H PRN ORAL Mild Pain (Pain Scale 1-3) 12/07/19 08:30 01/06/20 08:29 Barium Sulfate (Readi-Cat 2) 450 ml NOW PRN ORAL Radiology Procedure 12/06/19 18:45 12/08/19 18:39 Cefepime HCl 1 gm/ Dextrose 55 ml @ 110 mls/hr EVERY 12 HOURS IVPB 12/07/19 09:00 12/14/19 08:59 12/07/19 09:56 Dextrose (Dextrose 50%) 25 ml Q30M PRN IV Hypoglycemia 12/07/19 08:15 01/06/20 08:14 Dextrose (Dextrose 50%) 25 ml Q30M PRN IV Hypoglycemia 12/07/19 08:30 01/06/20 08:29 Dextrose (Dextrose 50%) 50 ml Q30M PRN IV Hypoglycemia 12/07/19 08:15 01/06/20 08:14 Dextrose (Dextrose 50%) 50 ml Q30M PRN IV Hypoglycemia 12/07/19 08:30 01/06/20 08:29 Diphenhydramine HCl (Benadryl) 25 mg Q6H PRN ORAL Itching/Pruritis 12/07/19 08:15 01/06/20 08:14 Heparin Sodium (Porcine) (Heparin 5000 units/ml) 5,000 units EVERY 12 HOURS SUBQ 12/07/19 09:00 01/06/20 08:59 12/07/19 09:04 Insulin Aspart (NovoLOG) BEFORE MEALS AND HS SUBQ 12/07/19 11:30 01/06/20 11:29 Iohexol (OMNIPAQUE-300 100ml) 100 ml NOW PRN INJ Radiology Procedure 12/06/19 18:45 12/08/19 18:39 Metronidazole (Flagyl) 500 mg Q8HR ORAL 12/07/19 14:00 12/14/19 13:59 12/07/19 13:25 Morphine Sulfate (Morphine Sulfate) 2 mg Q4H PRN IVP Moderate Pain (Pain Scale 4-6) 12/07/19 08:30 12/14/19 08:29 Nitroglycerin (Ntg) 0.4 mg Q5M X 3 DOSES PRN SL Prn Chest Pain 12/07/19 08:15 01/06/20 08:14 Ondansetron HCl (Zofran) 4 mg Q6H PRN IVP Nausea & Vomiting 12/07/19 08:15 01/06/20 08:14 Pantoprazole (Protonix) 40 mg DAILY IVP 12/07/19 09:00 01/06/20 08:59 12/07/19 09:03 Polyethylene Glycol (Miralax) 17 gm HSPRN PRN ORAL Constipation 12/07/19 08:15 01/06/20 08:14 Sodium Chloride 1,000 ml @ 75 mls/hr [id number] IV 12/07/19 08:30 01/06/20 08:29 12/07/19 08:41 Temazepam (Restoril) 15 mg HSPRN PRN ORAL Insomnia 12/07/19 08:15 12/14/19 08:14 Assessment/Plan Problem List: (1) Cholecystitis with cholangitis ICD Codes: K81.9 - Cholecystitis, unspecified; K83.09 - Other cholangitis SNOMED: 72312334 (2) Chest pain ICD Codes: R07.9 - Chest pain, unspecified SNOMED: 94793786 Qualifiers: Qualified Codes: R07.9 - Chest pain, unspecified (3) Epigastric pain ICD Codes: R10.13 - Epigastric pain SNOMED: 10980370, 405597470 (4) Hyperglycemia ICD Codes: R73.9 - Hyperglycemia, unspecified SNOMED: 16843582, 052098086 (5) Diabetes mellitus ICD Codes: E11.9 - Type 2 diabetes mellitus without complications SNOMED: 38862883 Assessment/Plan: NPO iv fluids US of abdomen GI and surgery evaluation check cultures sliding scale with insulin coverage dvt prophylaxis. Alana Clarke MD Dec 07, 2019 15:13
--- NOTE | 2019-12-07 15:45 | History and Physical Report ---
DATE OF ADMISSION: 12/06/2019 CHIEF COMPLAINT: The patient is a 69-year-old white male, who presents with a chief complaint of epigastric and chest pain. HISTORY OF PRESENT ILLNESS: The patient has a history of "stomach problem." [place] [facility] [place] The patient was admitted for presumably cholecystitis. The patient states history of present illness began yesterday. Began in the evening. The patient states he began to experience severe epigastric pain. Onset was sudden. The pain radiated to the left chest. The patient presented to [facility] emergency room. The patient is admitted with epigastric pain to rule out acute cholecystitis. REVIEW OF SYSTEMS: CONSTITUTIONAL: The patient denies weight loss or weight gain. The patient denies fevers or chills. HEENT: The patient denies ear or throat pain. The patient denies headache. CARDIOVASCULAR: The patient denies palpitations or chest pain. CHEST: The patient denies wheeze or shortness of breath. CARDIOVASCULAR: The patient complains of left-sided chest pain as above. The patient denies palpitations. ABDOMINAL: The patient complains of epigastric pain as above. The patient denies nausea, vomiting, diarrhea, or constipation. GENITOURINARY: The patient denies dysuria or increased frequency of urination. NEUROMUSCULAR: The patient denies seizures or generalized weakness. CHEST: The patient denies wheezes or shortness of breath. PAST MEDICAL HISTORY: Significant for: 1. Type 2 diabetes. 2. Hypertension. 3. History of prostate cancer, status post resection in 2016. PAST SURGICAL HISTORY: Significant for laparoscopic prostatectomy in 2016. CURRENT MEDICATIONS: Unknown. ALLERGIES: No known drug allergies. SOCIAL HISTORY: The patient is . The patient is retired. The patient denies tobacco use having quit 25 years previously. The patient denies alcohol use. PHYSICAL EXAMINATION: VITAL SIGNS: Temperature maximum 101.3 degrees Fahrenheit, pulse 111, respiratory rate 24, blood pressure 131/53. GENERAL: The patient is well-developed, well-nourished white male, who is in moderate pain. HEENT: Eyes, pupils are equal and responsive to light and accommodation. Extraocular movements are intact. NECK: Supple. No lymphadenopathy. CHEST: Lungs are clear to auscultation bilaterally without wheezes or rales. CARDIOVASCULAR: Tachycardic, regular rhythm. S1, S2 are normal without murmurs, rubs, or gallops. ABDOMEN: Soft, tender to palpation in the epigastric region, no rebound or guarding noted. EXTREMITIES: Negative for clubbing, cyanosis, or edema. RECTAL/GENITAL: Not performed. NEUROLOGICAL: Cranial nerves II through XII are grossly intact without focal deficits. Motor strength is 5/5 bilaterally. Deep tendon reflexes are 2+ plantar. LABORATORY STUDIES: WBC 9.9, hemoglobin 14.0, hematocrit 40.0, platelets 241,000. Sodium 141, potassium 3.9, chloride 103, CO2 29, BUN 17, creatinine 1.3, glucose 220. Total bilirubin 1.3, direct bilirubin 0.8, AST elevated at 375, ALT elevated at 189. A CT scan of the abdomen revealed gallbladder polyps and sludge ball versus stone in the body of the gallbladder. These were consistent with cholelithiasis and acute cholecystitis. An abdominal ultrasound revealed small stones in the gallbladder with pericholecystic fluid consistent with acute cholecystitis. ASSESSMENT: This is a 69-year-old white male. 1. Cholecystitis. 2. Cholelithiasis. 3. Epigastric pain. 4. Elevated liver function tests. 5. Hypertension. 6. Diabetes type 2. TREATMENT: 1. Cholecystitis/cholelithiasis/elevated liver function tests. A Surgery consultation has been obtained with Dr. Castellano. The patient is currently NPO. A HIDA scan is pending. The patient may require emergent cholecystectomy during this hospitalization. We will follow recommendations of Surgery. 2. Diabetes type 2. A NovoLog sliding scale has been instituted. The patient is unsure of his home medication. The patient is currently NPO. Fingerstick blood sugars will be performed before meals and at bedtime. 3. Hypertension. The patient is currently hypotensive. Sergey Wolf M.D. DR: GUI JOB#: [id number] CC:
[2019-12-07 16:00] VITALS: BP 135/59
--- NOTE | 2019-12-07 16:38 | Cardiac Electrophysiology PN ---
Subjective Subjective [id number] Objective Last 24 Hour Vital Signs Date Time Temp Pulse Resp B/P (MAP) Pulse Ox O2 Delivery O2 Flow Rate FiO2 12/07/19 12:00 99.8 87 20 138/63 (88) 95 12/07/19 11:48 92 12/07/19 09:37 85 12/07/19 09:00 Room Air 12/07/19 08:00 98.6 86 18 135/56 (82) 95 12/07/19 04:00 100.1 100 18 111/53 (72) 95 12/07/19 02:05 Room Air 12/07/19 01:30 98.2 109 19 133/53 94 Room Air 12/07/19 00:45 98.2 109 19 133/53 94 Room Air 12/07/19 00:19 98.2 12/06/19 22:25 101.3 111 24 131/53 90 Room Air 12/06/19 17:40 97.5 92 18 188/65 100 Room Air 12/06/19 17:40 91 18 Room Air 12/06/19 17:25 97.5 75 18 188/65 (106) 100 Room Air Intake and Output 12/06/19 12/07/19 19:00 07:00 Intake Total 0 ml Balance 0 ml Intake Oral 0 ml Laboratory Tests Test 12/06/19 17:34 12/06/19 22:55 12/06/19 23:20 12/07/19 00:35 White Blood Count 9.9 K/UL (4.8-10.8) Red Blood Count 4.46 M/UL (4.70-6.10) L Hemoglobin 14.0 G/DL (14.2-18.0) L Hematocrit 40.0 % (42.0-52.0) L Mean Corpuscular Volume 90 FL (80-99) Mean Corpuscular Hemoglobin 31.3 PG (27.0-31.0) H Mean Corpuscular Hemoglobin Concent 34.9 G/DL (32.0-36.0) Red Cell Distribution Width 11.9 % (11.6-14.8) Platelet Count 241 K/UL (150-450) Mean Platelet Volume 7.2 FL (6.5-10.1) Neutrophils (%) (Auto) 77.6 % (45.0-75.0) H Lymphocytes (%) (Auto) 15.4 % (20.0-45.0) L Monocytes (%) (Auto) 6.2 % (1.0-10.0) Eosinophils (%) (Auto) 0.4 % (0.0-3.0) Basophils (%) (Auto) 0.5 % (0.0-2.0) Prothrombin Time 10.1 SEC (9.30-11.50) Prothromb Time International Ratio 0.9 (0.9-1.1) Activated Partial Thromboplast Time 26 SEC (23-33) Sodium Level 141 MMOL/L (136-145) Potassium Level 3.9 MMOL/L (3.5-5.1) Chloride Level 103 MMOL/L (98-107) Carbon Dioxide Level 29 MMOL/L (21-32) Anion Gap 9 mmol/L (5-15) Blood Urea Nitrogen 17 mg/dL (7-18) Creatinine 1.3 MG/DL (0.55-1.30) Estimat Glomerular Filtration Rate > 60 mL/min (>60) Glucose Level 220 MG/DL (74-106) H Calcium Level 9.0 MG/DL (8.5-10.1) Magnesium Level 2.0 MG/DL (1.8-2.4) Total Bilirubin 1.3 MG/DL (0.2-1.0) H Direct Bilirubin 0.8 MG/DL (0.0-0.3) H Aspartate Amino Transf (AST/SGOT) 375 U/L (15-37) H Alanine Aminotransferase (ALT/SGPT) 189 U/L (12-78) H Alkaline Phosphatase 82 U/L (46-116) Total Creatine Kinase 76 U/L (26-308) Troponin I 0.000 ng/mL (0.000-0.056) Pro-B-Type Natriuretic Peptide 82 pg/mL (0-125) Total Protein 7.8 G/DL (6.4-8.2) Albumin 4.0 G/DL (3.4-5.0) Globulin 3.8 g/dL Albumin/Globulin Ratio 1.1 (1.0-2.7) Lipase 98 U/L (73-393) Lactic Acid Level 3.00 mmol/L (0.4-2.0) H 2.60 mmol/L (0.66-2.22) H Urine Color Yellow Urine Appearance Clear Urine pH 6.5 (4.5-8.0) Urine Specific Pollard 1.010 (1.005-1.035) Urine Protein Negative (NEGATIVE) Urine Glucose (UA) Negative (NEGATIVE) Urine Ketones Negative (NEGATIVE) Urine Blood 1+ (NEGATIVE) H Urine Nitrite Negative (NEGATIVE) Urine Bilirubin Negative (NEGATIVE) Urine Urobilinogen Normal MG/DL (0.0-1.0) Urine Leukocyte Esterase Negative (NEGATIVE) Urine RBC 2-4 /HPF (0 - 0) H Urine WBC 0-2 /HPF (0 - 0) Urine Squamous Epithelial Cells Occasional /LPF Urine Bacteria Occasional /HPF (NONE) Test 12/07/19 09:30 Sodium Level 144 MMOL/L (136-145) Potassium Level 3.9 MMOL/L (3.5-5.1) Chloride Level 107 MMOL/L (98-107) Carbon Dioxide Level 26 MMOL/L (21-32) Anion Gap 11 mmol/L (5-15) Blood Urea Nitrogen 17 mg/dL (7-18) Creatinine 1.3 MG/DL (0.55-1.30) Estimat Glomerular Filtration Rate > 60 mL/min (>60) Glucose Level 158 MG/DL (74-106) H Calcium Level 8.0 MG/DL (8.5-10.1) L Troponin I 0.063 ng/mL (0.000-0.056) Mat Monaco MD Dec 07, 2019 16:38
--- NOTE | 2019-12-07 18:45 | Consultation ---
DATE OF CONSULTATION: 12/07/2019 CARDIOLOGY CONSULTATION CONSULTING PHYSICIAN: Mat Monaco M.D. REFERRING PHYSICIAN: Stewart Goodson M.D. REASON FOR CONSULTATION: Management of hypertension and preoperative evaluation. HISTORY OF PRESENT ILLNESS: The patient is a 69-year-old [place]ian gentleman with history of hypertension and history of prostate cancer, status post resection in 2016 as well as type 2 diabetes, who was admitted to [facility] in the past, who began experiencing severe epigastric pain. It was sudden with radiation to the left chest. The patient presented to [facility], was admitted to rule out acute cholecystitis. The patient was also evaluated by Dr. Castellano from surgical perspective. Ultrasound shows small stones in the gallbladder. The patient also was febrile with no leukocytosis. At the time of my evaluation, the patient denies any chest pain, palpitation, or shortness of breath, but still has epigastric discomfort. Troponin was elevated at 0.063. REVIEW OF SYSTEMS: Negative other than what was mentioned in history of present illness. PAST MEDICAL HISTORY: As mentioned above. FAMILY HISTORY: Noncontributory. SOCIAL HISTORY: He lives with the family. Does not smoke or drink alcohol. PHYSICAL EXAMINATION: VITAL SIGNS: Show blood pressure 138/86, pulse 87, respirations 18, and temperature, maximum temperature 100.1. HEAD AND NECK: Showed no JVD. LUNGS: Clear. CARDIOVASCULAR: Shows regular S1 and S2 with no gallop. ABDOMEN: Soft. EXTREMITIES: No pitting edema. LABORATORY DATA: Labs show sodium 144, potassium 3.9, BUN 17, and creatinine 1.3. Glucose of 158. Troponin initially was negative, so follow up was 0.063. His INR is 0.9. White count is 9.9, hemoglobin 14, hematocrit 40, and platelets of 241,000. ASSESSMENT AND PLAN: 1. Troponin elevation. EKG showed nonspecific T-wave abnormality with no ST elevation. We will repeat EKG and cardiac enzymes as well as echocardiogram for further evaluation. We will treat the patient for non-ST elevation myocardial infarction medically with aspirin, beta-mayela, and statin. 2. Hypertension. Treat the patient with beta mayela at this time, as the patient may need surgery. 3. Diabetes. 4. Cholecystitis, on antibiotic per Dr. Goodson. Thank you very much for allowing me to participate in the care of this patient. Please do not hesitate to contact me for any questions regarding my evaluation. Mat Monaco M.D. DR: JERRICA JOB#: [id number] CC:
--- NOTE | 2019-12-07 19:38 | NUR ---
HAND-OFF: Report given to AAYUSH MARLEY. Pt is awake and stable, daughter is on bed side.
--- NOTE | 2019-12-07 19:53 | NUR ---
NURSE NOTES: RECEIVED PATIENT RESTING IN BED, NO COMPLAINTS OF PAIN AT THIS TIME. FALL PRECAUTIONS IN PLACE: CALL LIGHT, BEDSIDE TABLE AND URINAL WITHIN REACH, BED IN LOW POSITION AND BED ALARM ON. FAMILY AT BEDSIDE. PLAN OF CARE REVIEWED.
[2019-12-07 20:00] VITALS: BP 133/64
[2019-12-08] VITALS (8 sets, daily range): BP systolic 138–149; BP diastolic 60–73
[2019-12-08 05:04] LABS: HEMATOCRIT 37.4 % (42.0-52.0); MEAN CORPUSCULAR VOLUME 89 FL (80-99); PLATELET COUNT 153 K/UL (150-450); RED BLOOD COUNT 4.21 M/UL (4.70-6.10); RED CELL DISTRIBUTION WIDTH 12.2 % (11.6-14.8); WHITE BLOOD COUNT 10.2 K/UL (4.8-10.8)
[2019-12-08] MEDS: metroNIDAZOLE 500mg tab ORAL SCH ×3 (05:44→21:47)
[2019-12-08 05:52] LABS: ALANINE AMINOTRANSFERASE 429 U/L (12-78); ALBUMIN/GLOBULIN RATIO 0.8 (1.0-2.7); ALKALINE PHOSPHATASE 81 U/L (46-116); AMYLASE 62 U/L (25-115); ANION GAP 9 mmol/L (5-15); ASPARTATE AMINO TRANSFERASE 272 U/L (15-37); BILIRUBIN,TOTAL 4.8 MG/DL (0.2-1.0); BLOOD UREA NITROGEN 17 mg/dL (7-18); CALCIUM 8.1 MG/DL (8.5-10.1); CARBON DIOXIDE 24 MMOL/L (21-32); CHLORIDE 108 MMOL/L (98-107); CHOLESTEROL 66 MG/DL (< 200); CREATININE 1.1 MG/DL (0.55-1.30); HDL CHOLESTEROL 19 MG/DL (40-60); POTASSIUM 3.8 MMOL/L (3.5-5.1); SODIUM 141 MMOL/L (136-145); TRIGLYCERIDES 133 MG/DL (30-150)
[2019-12-08 06:04] LABS: BILIRUBIN,DIRECT 4.1 MG/DL (0.0-0.3)
[2019-12-08] MEDS: NovoLOG Insulin Flexpen SUBQ SCH ×4 (06:12→21:00)
--- NOTE | 2019-12-08 07:06 | NUR ---
HAND-OFF: Report given to Scarlett DURAN RN. PATIENT RESTING IN BED, NO SIGNS OF DISTRESS NOTED.
--- NOTE | 2019-12-08 07:10 | NUR ---
NURSE NOTES: Received report from AYAKA Dickson. The patient is resting on the bed without acute distress or shortness of breath. The patient's bed in the lowest position, call light in reach, and fall and aspiration precaution reinforced. IV site intact and patent. The patient is kept on NPO per order. The patient's last BS was 71. Will continue plan of care.
--- NOTE | 2019-12-08 07:50 | NUR ---
NURSE NOTES: Paged Dr. Castellano regarding the patient's NPO status with BS of 71 as he is on NS 75mL/hr. Dr. Castellano ordered to change IVF from NS to D5NS @ 75mL/hr. Will carry out the order as soon as possible. The patient is stable without acute distress or shortness of breath. Will continue plan of care.
[2019-12-08] MEDS ORDERED: D5NS 1,000 ML IV SCH (08:30)
[2019-12-08] MEDS: Pantoprazole Inj IVP SCH (09:10)
[2019-12-08] MEDS: Heparin 5000 units/ml inj SUBQ SCH ×2 (09:12→21:00)
[2019-12-08] MEDS: Cefepime HCl 1 GM in D5W 55 ML IVPB SCH ×2 (09:19→21:19)
--- NOTE | 2019-12-08 09:30 | NUR ---
NURSE NOTES: The patient, family member, Dr. Castellano, and Dr. Pollard at the bedside assessed the patient. Per Dr. Castellano, put on hold for HIDA scan and do ERCP first. The patient verbalized understanding. Will continue plan of care accordingly.
--- NOTE | 2019-12-08 10:41 | Pulmonology Progress Note ---
Assessment/Plan Problems: (1) Cholecystitis with cholangitis (2) Chest pain (3) Epigastric pain (4) Hyperglycemia (5) Diabetes mellitus Assessment/Plan all reviewed continue NPO iv fluids, check electrolytes US of abdomen GI and surgery evaluation appreciated. scheduled for ERCP check cultures sliding scale with insulin coverage dvt prophylaxis. Subjective Constitutional: Reports: no symptoms HEENT: Repors: no symptoms Respiratory: Reports: no symptoms Allergies: Coded Allergies: No Known Allergies (Unverified , 11/16/14) Objective Last 24 Hour Vital Signs Date Time Temp Pulse Resp B/P (MAP) Pulse Ox O2 Delivery O2 Flow Rate FiO2 12/08/19 09:11 76 148/67 12/08/19 09:00 Room Air 12/08/19 08:00 99.1 76 18 148/67 (94) 96 12/08/19 08:00 67 12/08/19 04:00 98.6 76 18 146/71 (96) 96 12/08/19 04:00 72 12/08/19 00:00 100.0 73 18 146/67 (93) 98 12/08/19 00:00 69 12/07/19 21:29 100.0 12/07/19 21:00 Room Air 12/07/19 20:58 80 133/64 12/07/19 20:00 100.4 80 17 133/64 (87) 97 12/07/19 20:00 82 12/07/19 16:00 98.2 82 18 135/59 (84) 96 12/07/19 15:15 82 12/07/19 12:00 99.8 87 20 138/63 (88) 95 12/07/19 11:48 92 Intake and Output 12/07/19 12/08/19 19:00 07:00 Intake Total 835 ml 915 ml Output Total 800 ml Balance 835 ml 115 ml IV Total 835 ml 915 ml Output Urine Total 800 ml # Voids 4 # Bowel Movements 1 General Appearance: WD/WN HEENT: normocephalic, atraumatic Respiratory/Chest: chest wall non-tender, lungs clear Cardiovascular: normal peripheral pulses, normal rate Abdomen: normal bowel sounds, soft, non tender, no organomegaly, no scars Genitourinary: normal external genitalia Extremities: no cyanosis Neurologic/Psychiatric: die grinder II-XII grossly normal Lymphatic: no neck adenopathy Microbiology Date/Time Source Procedure Growth Status 12/06/19 22:59 Blood Blood Culture - Preliminary NO GROWTH AFTER 24 HOURS Resulted 12/06/19 22:53 Blood Blood Culture - Preliminary NO GROWTH AFTER 24 HOURS Resulted Laboratory Tests 12/08/19 04:00: Lactic Acid Level 1.10 12/08/19 04:20: White Blood Count 10.2, Red Blood Count 4.21L, Hemoglobin 13.0L, Hematocrit 37.4L, Mean Corpuscular Volume 89, Mean Corpuscular Hemoglobin 30.9, Mean Corpuscular Hemoglobin Concent 34.9, Red Cell Distribution Width 12.2, Platelet Count 153, Mean Platelet Volume 6.5, Neutrophils (%) (Auto) , Lymphocytes (%) ( Auto) , Monocytes (%) (Auto) , Eosinophils (%) (Auto) , Basophils (%) (Auto) , Erythrocyte Sedimentation Rate 40H, Activated Partial Thromboplast Time 29, Sodium Level 141, Potassium Level 3.8, Chloride Level 108H, Carbon Dioxide Level 24, Anion Gap 9, Blood Urea Nitrogen 17, Creatinine 1.1, Estimat Glomerular Filtration Rate > 60, Glucose Level 85, Calcium Level 8.1L, Total Bilirubin 4.8H, Direct Bilirubin 4.1H, Aspartate Amino Transf (AST/SGOT) 272H, Alanine Aminotransferase (ALT/SGPT) 429H, Alkaline Phosphatase 81, Troponin I 0.030, C-Reactive Protein, Quantitative 13.7H, Pro-B-Type Natriuretic Peptide 946H, Total Protein 6.6, Albumin 3.0L, Globulin 3.6, Albumin/Globulin Ratio 0.8L , Triglycerides Level 133, Cholesterol Level 66, LDL Cholesterol 23, HDL Cholesterol 19L, Cholesterol/HDL Ratio 3.5, Amylase Level 62, Lipase 108, Thyroid Stimulating Hormone (TSH) 0.155L Current Medications Medications (Trade) Dose Ordered Sig/Mariluz Route PRN Reason Start Time Stop Time Status Last Admin Dose Admin Acetaminophen (Tylenol) 650 mg Q4H PRN ORAL fever 12/07/19 08:15 01/06/20 08:14 12/07/19 20:59 Acetaminophen (Tylenol) 650 mg Q6H PRN ORAL Mild Pain (Pain Scale 1-3) 12/07/19 08:30 01/06/20 08:29 Barium Sulfate (Readi-Cat 2) 450 ml NOW PRN ORAL Radiology Procedure 12/06/19 18:45 12/08/19 18:39 Cefepime HCl 1 gm/ Dextrose 55 ml @ 110 mls/hr EVERY 12 HOURS IVPB 12/07/19 09:00 12/14/19 08:59 12/08/19 09:19 Dextrose (Dextrose 50%) 25 ml Q30M PRN IV Hypoglycemia 12/07/19 08:15 01/06/20 08:14 Dextrose (Dextrose 50%) 25 ml Q30M PRN IV Hypoglycemia 12/07/19 08:30 01/06/20 08:29 Dextrose (Dextrose 50%) 50 ml Q30M PRN IV Hypoglycemia 12/07/19 08:15 01/06/20 08:14 Dextrose (Dextrose 50%) 50 ml Q30M PRN IV Hypoglycemia 12/07/19 08:30 01/06/20 08:29 Dextrose/Sodium Chloride 1,000 ml @ 75 mls/hr [id number] IV 12/08/19 08:30 01/07/20 08:29 12/08/19 09:10 Diphenhydramine HCl (Benadryl) 25 mg Q6H PRN ORAL Itching/Pruritis 12/07/19 08:15 01/06/20 08:14 Heparin Sodium (Porcine) (Heparin 5000 units/ml) 5,000 units EVERY 12 HOURS SUBQ 12/07/19 09:00 01/06/20 08:59 12/08/19 09:12 Insulin Aspart (NovoLOG) BEFORE MEALS AND HS SUBQ 12/07/19 11:30 01/06/20 11:29 Iohexol (OMNIPAQUE-300 100ml) 100 ml NOW PRN INJ Radiology Procedure 12/06/19 18:45 12/08/19 18:39 Metoprolol Tartrate (Lopressor) 25 mg EVERY 12 HOURS ORAL 12/07/19 21:00 01/06/20 20:59 12/08/19 09:11 Metronidazole (Flagyl) 500 mg Q8HR ORAL 12/07/19 14:00 12/14/19 13:59 12/08/19 05:44 Morphine Sulfate (Morphine Sulfate) 2 mg Q4H PRN IVP Moderate Pain (Pain Scale 4-6) 12/07/19 08:30 12/14/19 08:29 12/07/19 17:06 Nitroglycerin (Ntg) 0.4 mg Q5M X 3 DOSES PRN SL Prn Chest Pain 12/07/19 08:15 01/06/20 08:14 Ondansetron HCl (Zofran) 4 mg Q6H PRN IVP Nausea & Vomiting 12/07/19 08:15 01/06/20 08:14 Pantoprazole (Protonix) 40 mg DAILY IVP 12/07/19 09:00 01/06/20 08:59 12/08/19 09:10 Polyethylene Glycol (Miralax) 17 gm HSPRN PRN ORAL Constipation 12/07/19 08:15 01/06/20 08:14 Temazepam (Restoril) 15 mg HSPRN PRN ORAL Insomnia 12/07/19 08:15 12/14/19 08:14 12/07/19 22:31 Alana Clarke MD Dec 08, 2019 10:41
--- NOTE | 2019-12-08 12:05 | NUR ---
NURSE NOTES: Report given to AYAKA Darling who is receiving nurse @ 320-1. The patient got safely transferred to [facility]. The patient's bed in the lowest position, call light in reach, and fall and aspiration precaution reinforced. IV site intact and patent. The patient's belongings checked with the patient and two nurses and signed by two nurses. The patient's skin intact. Informed AYAKA Hinds that the patient is scheduled for ECRP and abdominal x-ray. Endorsed plan of care.
[2019-12-08] MEDS ORDERED: Nitroglycerin Subl 0.4mg tab SL PRN (12:15)
--- NOTE | 2019-12-08 12:15 | NUR ---
NURSE NOTES: Pt came up to unit via hospital bed w/daughter at bedside and belongings accounted for. Pt A&Ox4, VSS, and in no apparent distress; pt stated pain is 3/10 and would not like any pain medication at this time. IV site intact/asymptomatic and skin intact./ Pt scheduled for ERCP today. Will continue to monitor.
[2019-12-08] MEDS ORDERED: DiphenhydrAMINE 25mg Tab ORAL PRN (12:30)
[2019-12-08] MEDS ORDERED: Miralax 17gm pkt ORAL PRN (12:30)
--- NOTE | 2019-12-08 13:00 | Consultation ---
DATE OF CONSULTATION: 12/08/2019 CONSULTING PHYSICIAN: Klaus Pollard M.D. CHIEF COMPLAINT: Abdominal pain. HISTORY OF PRESENT ILLNESS: This is a 69-year-old male, admitted to the hospital with complaint of abdominal pain, has past medical history of prostate cancer. Since admission, the patient had multiple workups including abdominal ultrasound and CT suggestive of biliary obstruction with bilirubin of over 4 today and stones in the gallbladder. PAST MEDICAL HISTORY: 1. History of prostate cancer, status post resection in 2016. 2. Diabetes type 2. ALLERGIES: No known drug allergies. MEDICATIONS: Please see medication reconciliation list. SOCIAL HISTORY: The patient has no recent history of tobacco, alcohol, or drug abuse. FAMILY HISTORY: Noncontributory. REVIEW OF SYSTEMS: A 10-point review of systems was performed and pertinent positives in HPI. PHYSICAL EXAMINATION: VITAL SIGNS: Most recent vital signs, temperature is 98.6, T-max is 100, pulse is 72, respirations 18, blood pressure 146/71. HEENT: Normocephalic, atraumatic. Sclerae mild icterus. NECK: Supple. No evidence of obvious lymphadenopathy. CARDIOVASCULAR: Regular rate and rhythm. Plus S1 and S2. LUNGS: Clear to auscultation bilaterally. ABDOMEN: Positive bowel sounds. Soft. Minimal tenderness to palpation in the epigastric, right upper quadrant. No rebound. No guarding. No peritoneal sign. EXTREMITIES: No cyanosis, no clubbing, no edema. LABORATORY DATA: White count is 10, hemoglobin 13, hematocrit 37, platelet count is 153. Chem-7 sodium 141, potassium 3.8, BUN is 17, creatinine is 1.1. Bilirubin is 4.8, direct is 4.1. AST 272, ALT 429, alkaline phosphatase of 81. ASSESSMENT: This is a 69-year-old male with gallstones, acute cholecystitis, possible biliary obstruction. PLAN: Discussed with the surgeon. Discussed with the family. The patient will need an ERCP. Plan to start the patient on antibiotics, monitor for laboratories. We will call Cardiology for clearance. If the patient is clear, we will plan ERCP today or first thing tomorrow morning. I want to thank Dr. Stewart Goodson, for this kind referral. Klaus Luke Pollard DR: QUINTON JOB#: [id number] CC: Stewart Goodson M.D.; Fax#: [phone]
--- NOTE | 2019-12-08 13:15 | NUR ---
CASE MANAGEMENT:REVIEW 69 YR OLD MALE WALKED IN TO ER CC: CHEST PAIN SI: ACUTE CHOLECYSTITIS. CHEST PAIN 97.5 109 18 188/65 100% ON RA GLUCOSE+220 TBILI+1.3 AST/ALT+375/189 TROPONIN(-) IS: ASA PO GI COCKTAIL IV ZOFRAN IV DILAUDID IV REGLAN IV BENADRYL IV PEPCID CT ABD/PELVIS : TELEMETRY
--- NOTE | 2019-12-08 13:39 | Diagnostic Imaging Report ---
Indication: Abdominal pain Comparison: None Single view of the abdomen obtained Findings: Bowel gas pattern is nonspecific. There is contrast within the colon. There are surgical clips in the pelvis. No mass, ectopic calcifications, or abnormal gas collections are identified. The bones are unremarkable. Impression: No acute findings
--- NOTE | 2019-12-08 14:04 | Consultation ---
History of Present Illness General Date patient seen: Dec 08, 2019 Chief Complaint: Chest Pain Present Illness HPI 69 y/o M with hx of HTN, Dm2, former smoker, prostate CA s/p resection 2016 presented to ED on 12/06/19 with sudden, severe epigastric pain with radiation to L chest. Patient had imaging that showed cholecystitis Denied SOB, palpitations, nausea, vomiting, f/c, diarrhea, dysuria, rashes. Allergies: Coded Allergies: No Known Allergies (Unverified , 11/16/14) Patient History Healthcare decision maker Resuscitation status Full Code Advanced Directive on File Patient History Narrative Pmhx: as above Shx: He lives with the family. The patient is . The patient is retired. The patient denies tobacco use having quit 25 years previously. The patient denies alcohol use. Fhx: non contributory Review of Systems All Other Systems: negative except mentioned in HPI Physical Exam Physical Exam Narrative GENERAL: The patient is well-developed, well-nourished white male, who is in moderate pain. HEENT: Eyes, pupils are equal and responsive to light and accommodation. Extraocular movements are intact. NECK: Supple. No lymphadenopathy. CHEST: Lungs are clear to auscultation bilaterally without wheezes or rales. CARDIOVASCULAR: Tachycardic, regular rhythm. S1, S2 are normal without murmurs, rubs, or gallops. ABDOMEN: Soft, tender to palpation in the epigastric region, no rebound or guarding noted. EXTREMITIES: Negative for clubbing, cyanosis, or edema. Last 24 Hour Vital Signs Date Time Temp Pulse Resp B/P (MAP) Pulse Ox O2 Delivery O2 Flow Rate FiO2 12/08/19 12:00 99.1 66 18 149/67 (94) 97 12/08/19 12:00 97.9 69 18 147/69 (95) 95 12/08/19 09:11 76 148/67 12/08/19 09:00 Room Air 12/08/19 08:00 99.1 76 18 148/67 (94) 96 12/08/19 08:00 67 12/08/19 04:00 98.6 76 18 146/71 (96) 96 12/08/19 04:00 72 12/08/19 00:00 100.0 73 18 146/67 (93) 98 12/08/19 00:00 69 12/07/19 21:29 100.0 12/07/19 21:00 Room Air 12/07/19 20:58 80 133/64 12/07/19 20:00 100.4 80 17 133/64 (87) 97 12/07/19 20:00 82 12/07/19 16:00 98.2 82 18 135/59 (84) 96 12/07/19 15:15 82 Intake and Output 12/07/19 12/08/19 18:59 06:59 Intake Total 760 ml 915 ml Output Total 800 ml Balance 760 ml 115 ml IV Total 760 ml 915 ml Output Urine Total 800 ml # Voids 4 # Bowel Movements 1 Laboratory Tests Test 12/08/19 04:00 12/08/19 04:20 Lactic Acid Level 1.10 mmol/L (0.4-2.0) White Blood Count 10.2 K/UL (4.8-10.8) Red Blood Count 4.21 M/UL (4.70-6.10) L Hemoglobin 13.0 G/DL (14.2-18.0) L Hematocrit 37.4 % (42.0-52.0) L Mean Corpuscular Volume 89 FL (80-99) Mean Corpuscular Hemoglobin 30.9 PG (27.0-31.0) Mean Corpuscular Hemoglobin Concent 34.9 G/DL (32.0-36.0) Red Cell Distribution Width 12.2 % (11.6-14.8) Platelet Count 153 K/UL (150-450) Mean Platelet Volume 6.5 FL (6.5-10.1) Neutrophils (%) (Auto) % (45.0-75.0) Lymphocytes (%) (Auto) % (20.0-45.0) Monocytes (%) (Auto) % (1.0-10.0) Eosinophils (%) (Auto) % (0.0-3.0) Basophils (%) (Auto) % (0.0-2.0) Erythrocyte Sedimentation Rate 40 MM/HR (0-20) H Activated Partial Thromboplast Time 29 SEC (23-33) Sodium Level 141 MMOL/L (136-145) Potassium Level 3.8 MMOL/L (3.5-5.1) Chloride Level 108 MMOL/L (98-107) H Carbon Dioxide Level 24 MMOL/L (21-32) Anion Gap 9 mmol/L (5-15) Blood Urea Nitrogen 17 mg/dL (7-18) Creatinine 1.1 MG/DL (0.55-1.30) Estimat Glomerular Filtration Rate > 60 mL/min (>60) Glucose Level 85 MG/DL (74-106) Calcium Level 8.1 MG/DL (8.5-10.1) L Total Bilirubin 4.8 MG/DL (0.2-1.0) H Direct Bilirubin 4.1 MG/DL (0.0-0.3) H Aspartate Amino Transf (AST/SGOT) 272 U/L (15-37) H Alanine Aminotransferase (ALT/SGPT) 429 U/L (12-78) H Alkaline Phosphatase 81 U/L (46-116) Troponin I 0.030 ng/mL (0.000-0.056) C-Reactive Protein, Quantitative 13.7 mg/dL (0.00-0.90) H Pro-B-Type Natriuretic Peptide 946 pg/mL (0-125) H Total Protein 6.6 G/DL (6.4-8.2) Albumin 3.0 G/DL (3.4-5.0) L Globulin 3.6 g/dL Albumin/Globulin Ratio 0.8 (1.0-2.7) L Triglycerides Level 133 MG/DL (30-150) Cholesterol Level 66 MG/DL (< 200) LDL Cholesterol 23 mg/dL (<100) HDL Cholesterol 19 MG/DL (40-60) L Cholesterol/HDL Ratio 3.5 (3.3-4.4) Amylase Level 62 U/L (25-115) Lipase 108 U/L (73-393) Carcinoembryonic Antigen Pending Thyroid Stimulating Hormone (TSH) 0.155 uiU/mL (0.358-3.740) Height (Feet): 5 Height (Inches): 8.00 Weight (Pounds): 160 Medications Current Medications Medications (Trade) Dose Ordered Sig/Mariluz Route PRN Reason Start Time Stop Time Status Last Admin Dose Admin Acetaminophen (Tylenol) 650 mg Q4H PRN ORAL fever 12/08/19 12:15 01/06/20 08:14 Acetaminophen (Tylenol) 650 mg Q6H PRN ORAL Mild Pain (Pain Scale 1-3) 12/08/19 12:30 01/06/20 12:29 Cefepime HCl 1 gm/ Dextrose 55 ml @ 110 mls/hr EVERY 12 HOURS IVPB 12/08/19 21:00 12/14/19 08:59 Dextrose (Dextrose 50%) 25 ml Q30M PRN IV Hypoglycemia 12/08/19 12:15 01/06/20 08:14 Dextrose (Dextrose 50%) 50 ml Q30M PRN IV Hypoglycemia 12/08/19 12:15 01/06/20 08:14 Dextrose/Sodium Chloride 1,000 ml @ 75 mls/hr [id number] IV 12/08/19 12:15 01/07/20 08:29 Diphenhydramine HCl (Benadryl) 25 mg Q6H PRN ORAL Itching/Pruritis 12/08/19 12:30 01/06/20 12:29 Heparin Sodium (Porcine) (Heparin 5000 units/ml) 5,000 units EVERY 12 HOURS SUBQ 12/08/19 21:00 01/06/20 08:59 Insulin Aspart (NovoLOG) BEFORE MEALS AND HS SUBQ 12/08/19 16:30 01/06/20 11:29 Metoprolol Tartrate (Lopressor) 25 mg EVERY 12 HOURS ORAL 12/08/19 21:00 01/06/20 20:59 Metronidazole (Flagyl) 500 mg Q8HR ORAL 12/08/19 14:00 12/14/19 13:59 Morphine Sulfate (Morphine Sulfate) 2 mg Q4H PRN IVP Moderate Pain (Pain Scale 4-6) 12/08/19 12:30 12/14/19 08:29 Nitroglycerin (Ntg) 0.4 mg Q5M X 3 DOSES PRN SL Prn Chest Pain 12/08/19 12:15 01/06/20 08:14 Ondansetron HCl (Zofran) 4 mg Q6H PRN IVP Nausea & Vomiting 12/08/19 12:30 01/06/20 12:29 Pantoprazole (Protonix) 40 mg DAILY IVP 12/09/19 09:00 01/06/20 08:59 Polyethylene Glycol (Miralax) 17 gm HSPRN PRN ORAL Constipation 12/08/19 12:30 01/07/20 12:29 Temazepam (Restoril) 15 mg HSPRN PRN ORAL Insomnia 12/08/19 12:30 12/15/19 12:29 Assessment/Plan Assessment/Plan: Abx: Cefepime 12/06- Flagyl 12/06- Assessment: Sepsis Acute cholecystitis, choledocholithiasis, cholangitis Gram negative bacteremia -12/06 CT abd/p w/: 15 mm polyps, sludge ball versus stone in the body of the gallbladder. Suspect trace of pericholecystic fluid. These findings are nonspecific. Abd uS Small stones in the gallbladder. Gallbladder wall measures 6 mm in maximal thickness. Trace of pericholecystic fluid. These findings are nonspecific. -12/06 Bcx 1/ GNR u/a neg CXR: Likely bibasilar atelectasis related to underinflation. Fever; improving no leukocytosis HTN Dm2 former smoker prostate CA s/p resection 2015 Plan: -Continue Cefepime and Flagyl #3 -f/u cx -Monitor CBC/CMP, temperatures -Bcx x2 -aspiration precautions -Sx f/u Thank you for this consultation. Will continue to follow along with you. Discussed with Toyin Garcia M.D. Dec 08, 2019 14:04
--- NOTE | 2019-12-08 14:25 | Surgery Progress Note ---
Surgery Progress Note Subjective Symptoms: passing flatus, pain decreased Additional Comments low grade fevers t bili elevated choledocholithiasis spoke with gi plan for ercp discussed with family Objective Last 24 Hour Vital Signs Date Time Temp Pulse Resp B/P (MAP) Pulse Ox O2 Delivery O2 Flow Rate FiO2 12/08/19 12:00 99.1 66 18 149/67 (94) 97 12/08/19 12:00 97.9 69 18 147/69 (95) 95 12/08/19 09:11 76 148/67 12/08/19 09:00 Room Air 12/08/19 08:00 99.1 76 18 148/67 (94) 96 12/08/19 08:00 67 12/08/19 04:00 98.6 76 18 146/71 (96) 96 12/08/19 04:00 72 12/08/19 00:00 100.0 73 18 146/67 (93) 98 12/08/19 00:00 69 12/07/19 21:29 100.0 12/07/19 21:00 Room Air 12/07/19 20:58 80 133/64 12/07/19 20:00 100.4 80 17 133/64 (87) 97 12/07/19 20:00 82 12/07/19 16:00 98.2 82 18 135/59 (84) 96 12/07/19 15:15 82 I&O Intake and Output 12/07/19 12/08/19 19:00 07:00 Intake Total 835 ml 915 ml Output Total 800 ml Balance 835 ml 115 ml IV Total 835 ml 915 ml Output Urine Total 800 ml # Voids 4 # Bowel Movements 1 Cardiovascular: RSR Respiratory: clear Abdomen: soft, flat, non-tender, present bowel sounds, non-distended Laboratory Tests Test 12/08/19 04:00 12/08/19 04:20 Lactic Acid Level 1.10 mmol/L (0.4-2.0) White Blood Count 10.2 K/UL (4.8-10.8) Red Blood Count 4.21 M/UL (4.70-6.10) L Hemoglobin 13.0 G/DL (14.2-18.0) L Hematocrit 37.4 % (42.0-52.0) L Mean Corpuscular Volume 89 FL (80-99) Mean Corpuscular Hemoglobin 30.9 PG (27.0-31.0) Mean Corpuscular Hemoglobin Concent 34.9 G/DL (32.0-36.0) Red Cell Distribution Width 12.2 % (11.6-14.8) Platelet Count 153 K/UL (150-450) Mean Platelet Volume 6.5 FL (6.5-10.1) Neutrophils (%) (Auto) % (45.0-75.0) Lymphocytes (%) (Auto) % (20.0-45.0) Monocytes (%) (Auto) % (1.0-10.0) Eosinophils (%) (Auto) % (0.0-3.0) Basophils (%) (Auto) % (0.0-2.0) Erythrocyte Sedimentation Rate 40 MM/HR (0-20) H Activated Partial Thromboplast Time 29 SEC (23-33) Sodium Level 141 MMOL/L (136-145) Potassium Level 3.8 MMOL/L (3.5-5.1) Chloride Level 108 MMOL/L (98-107) H Carbon Dioxide Level 24 MMOL/L (21-32) Anion Gap 9 mmol/L (5-15) Blood Urea Nitrogen 17 mg/dL (7-18) Creatinine 1.1 MG/DL (0.55-1.30) Estimat Glomerular Filtration Rate > 60 mL/min (>60) Glucose Level 85 MG/DL (74-106) Calcium Level 8.1 MG/DL (8.5-10.1) L Total Bilirubin 4.8 MG/DL (0.2-1.0) H Direct Bilirubin 4.1 MG/DL (0.0-0.3) H Aspartate Amino Transf (AST/SGOT) 272 U/L (15-37) H Alanine Aminotransferase (ALT/SGPT) 429 U/L (12-78) H Alkaline Phosphatase 81 U/L (46-116) Troponin I 0.030 ng/mL (0.000-0.056) C-Reactive Protein, Quantitative 13.7 mg/dL (0.00-0.90) H Pro-B-Type Natriuretic Peptide 946 pg/mL (0-125) H Total Protein 6.6 G/DL (6.4-8.2) Albumin 3.0 G/DL (3.4-5.0) L Globulin 3.6 g/dL Albumin/Globulin Ratio 0.8 (1.0-2.7) L Triglycerides Level 133 MG/DL (30-150) Cholesterol Level 66 MG/DL (< 200) LDL Cholesterol 23 mg/dL (<100) HDL Cholesterol 19 MG/DL (40-60) L Cholesterol/HDL Ratio 3.5 (3.3-4.4) Amylase Level 62 U/L (25-115) Lipase 108 U/L (73-393) Carcinoembryonic Antigen Pending Thyroid Stimulating Hormone (TSH) 0.155 uiU/mL (0.358-3.740) Plan Problems: (1) Epigastric pain Assessment & Plan: [age]-year-old male with epigastric pain right upper quadrant radiating to the back. febrile, no leukocytosis, lactic acidosis, CT and ultrasound as below likely acute cholecystitis choledocholithiasis N.p.o. IV fluids IV antibiotics Bowel rest HIDA scan cancelled plan for ERCP Trend labs We will follow with recommendations Thank you for let me participate in patient's care (2) Cholecystitis, acute with cholelithiasis Assessment & Plan: IMPRESSION: 1. Small stones in the gallbladder. 2. Gallbladder wall measures 6 mm in maximal thickness. 3. Trace of pericholecystic fluid. 4. These findings are nonspecific. ABDOMEN: Liver: Unremarkable. No mass. Gallbladder and bile ducts: 15 mm polyps, sludge ball versus stone in the body of the gallbladder, best seen on series image 27. Suspect trace of pericholecystic fluid. Moderate common duct dilatation measuring up in maximum, likely patient's age. Pancreas: Unremarkable. No mass. No ductal dilation. Spleen: Unremarkable. No splenomegaly. Adrenals: Unremarkable. No mass. Kidneys and ureters: Unremarkable. No solid mass. No hydronephrosis. Stomach and bowel: Unremarkable. No obstruction. No mucosal thickening. PELVIS: Appendix: No findings to suggest acute appendicitis. Bladder: Unremarkable. No mass. Reproductive: Prostatectomy ABDOMEN and PELVIS: Intraperitoneal space: Unremarkable. No free air. No significant fluid collection. Bones/joints: Osteopenia. Moderate degenerative change. Soft tissues: Unremarkable. Vasculature: Moderate amount of atherosclerotic calcifications. No abdominal aortic aneurysm. Lymph nodes: Unremarkable. No enlarged lymph nodes. IMPRESSION: 15 mm polyps, sludge ball versus stone in the body of the gallbladder. Suspect trace of pericholecystic fluid. These findings are nonspecific. Nii Castellano Dec 08, 2019 14:25
[2019-12-08] MEDS: D5NS 1,000 ML IV SCH (14:30)
--- NOTE | 2019-12-08 15:30 | Cardiac Electrophysiology PN ---
Assessment/Plan Assessment/Plan 1. Troponin elevation. Two out of 3 troponins are negative. EKG showed nonspecific T-wave abnormality with no ST elevation. Echocardiogram Nl EF.No chest pain. No prior CO or CHF. Continue aspirin and Lopressor 25 bid 2. Hypertension. On Loppressor 25 bid 3. Diabetes. 4. Cholecystitis, on antibiotic . OK to Proceed with EGD and ERCP DW Dr. Latrice RN and daughter, Glen Subjective Subjective No CP or SOB. Walking in the hallway with daughter Objective Last 24 Hour Vital Signs Date Time Temp Pulse Resp B/P (MAP) Pulse Ox O2 Delivery O2 Flow Rate FiO2 12/08/19 12:00 99.1 66 18 149/67 (94) 97 12/08/19 12:00 97.9 69 18 147/69 (95) 95 12/08/19 09:11 76 148/67 12/08/19 09:00 Room Air 12/08/19 08:00 99.1 76 18 148/67 (94) 96 12/08/19 08:00 67 12/08/19 04:00 98.6 76 18 146/71 (96) 96 12/08/19 04:00 72 12/08/19 00:00 100.0 73 18 146/67 (93) 98 12/08/19 00:00 69 12/07/19 21:29 100.0 12/07/19 21:00 Room Air 12/07/19 20:58 80 133/64 12/07/19 20:00 100.4 80 17 133/64 (87) 97 12/07/19 20:00 82 12/07/19 16:00 98.2 82 18 135/59 (84) 96 Intake and Output 12/07/19 12/08/19 19:00 07:00 Intake Total 835 ml 915 ml Output Total 800 ml Balance 835 ml 115 ml IV Total 835 ml 915 ml Output Urine Total 800 ml # Voids 4 # Bowel Movements 1 Laboratory Tests Test 12/08/19 04:00 12/08/19 04:20 Lactic Acid Level 1.10 mmol/L (0.4-2.0) White Blood Count 10.2 K/UL (4.8-10.8) Red Blood Count 4.21 M/UL (4.70-6.10) L Hemoglobin 13.0 G/DL (14.2-18.0) L Hematocrit 37.4 % (42.0-52.0) L Mean Corpuscular Volume 89 FL (80-99) Mean Corpuscular Hemoglobin 30.9 PG (27.0-31.0) Mean Corpuscular Hemoglobin Concent 34.9 G/DL (32.0-36.0) Red Cell Distribution Width 12.2 % (11.6-14.8) Platelet Count 153 K/UL (150-450) Mean Platelet Volume 6.5 FL (6.5-10.1) Neutrophils (%) (Auto) % (45.0-75.0) Lymphocytes (%) (Auto) % (20.0-45.0) Monocytes (%) (Auto) % (1.0-10.0) Eosinophils (%) (Auto) % (0.0-3.0) Basophils (%) (Auto) % (0.0-2.0) Erythrocyte Sedimentation Rate 40 MM/HR (0-20) H Activated Partial Thromboplast Time 29 SEC (23-33) Sodium Level 141 MMOL/L (136-145) Potassium Level 3.8 MMOL/L (3.5-5.1) Chloride Level 108 MMOL/L (98-107) H Carbon Dioxide Level 24 MMOL/L (21-32) Anion Gap 9 mmol/L (5-15) Blood Urea Nitrogen 17 mg/dL (7-18) Creatinine 1.1 MG/DL (0.55-1.30) Estimat Glomerular Filtration Rate > 60 mL/min (>60) Glucose Level 85 MG/DL (74-106) Calcium Level 8.1 MG/DL (8.5-10.1) L Total Bilirubin 4.8 MG/DL (0.2-1.0) H Direct Bilirubin 4.1 MG/DL (0.0-0.3) H Aspartate Amino Transf (AST/SGOT) 272 U/L (15-37) H Alanine Aminotransferase (ALT/SGPT) 429 U/L (12-78) H Alkaline Phosphatase 81 U/L (46-116) Troponin I 0.030 ng/mL (0.000-0.056) C-Reactive Protein, Quantitative 13.7 mg/dL (0.00-0.90) H Pro-B-Type Natriuretic Peptide 946 pg/mL (0-125) H Total Protein 6.6 G/DL (6.4-8.2) Albumin 3.0 G/DL (3.4-5.0) L Globulin 3.6 g/dL Albumin/Globulin Ratio 0.8 (1.0-2.7) L Triglycerides Level 133 MG/DL (30-150) Cholesterol Level 66 MG/DL (< 200) LDL Cholesterol 23 mg/dL (<100) HDL Cholesterol 19 MG/DL (40-60) L Cholesterol/HDL Ratio 3.5 (3.3-4.4) Amylase Level 62 U/L (25-115) Lipase 108 U/L (73-393) Carcinoembryonic Antigen Pending Thyroid Stimulating Hormone (TSH) 0.155 uiU/mL (0.358-3.740) Microbiology Date/Time Source Procedure Growth Status 12/06/19 22:59 Blood Blood Culture - Preliminary Resulted 12/06/19 22:53 Blood Blood Culture - Preliminary NO GROWTH AFTER 24 HOURS Resulted Objective HEAD AND NECK: No JVD. LUNGS: Clear. CARDIOVASCULAR: Regular S1 and S2 with no gallop. ABDOMEN: Soft. EXTREMITIES: No pitting edema. Mat Monaco MD Dec 08, 2019 15:30
--- NOTE | 2019-12-08 18:20 | Internal Med Progress Note ---
Subjective Date of Service: Dec 08, 2019 Physician Name Sergey Wolf Attending Physician Stewart Goodson MD Current Medications Medications (Trade) Dose Ordered Sig/Mariluz Route PRN Reason Start Time Stop Time Status Last Admin Dose Admin Acetaminophen (Tylenol) 650 mg Q4H PRN ORAL fever 12/08/19 12:15 01/06/20 08:14 Acetaminophen (Tylenol) 650 mg Q6H PRN ORAL Mild Pain (Pain Scale 1-3) 12/08/19 12:30 01/06/20 12:29 Aspirin (ASA) 81 mg DAILY NG 12/09/19 09:00 01/08/20 08:59 Cefepime HCl 1 gm/ Dextrose 55 ml @ 110 mls/hr EVERY 12 HOURS IVPB 12/08/19 21:00 12/14/19 08:59 Dextrose (Dextrose 50%) 25 ml Q30M PRN IV Hypoglycemia 12/08/19 12:15 01/06/20 08:14 Dextrose (Dextrose 50%) 50 ml Q30M PRN IV Hypoglycemia 12/08/19 12:15 01/06/20 08:14 Dextrose/Sodium Chloride 1,000 ml @ 75 mls/hr [id number] IV 12/08/19 12:15 01/07/20 08:29 12/08/19 14:30 Diphenhydramine HCl (Benadryl) 25 mg Q6H PRN ORAL Itching/Pruritis 12/08/19 12:30 01/06/20 12:29 Heparin Sodium (Porcine) (Heparin 5000 units/ml) 5,000 units EVERY 12 HOURS SUBQ 12/08/19 21:00 01/06/20 08:59 Insulin Aspart (NovoLOG) BEFORE MEALS AND HS SUBQ 12/08/19 16:30 01/06/20 11:29 Metoprolol Tartrate (Lopressor) 25 mg EVERY 12 HOURS ORAL 12/08/19 21:00 01/06/20 20:59 Metronidazole (Flagyl) 500 mg Q8HR ORAL 12/08/19 14:00 12/14/19 13:59 12/08/19 14:34 Morphine Sulfate (Morphine Sulfate) 2 mg Q4H PRN IVP Moderate Pain (Pain Scale 4-6) 12/08/19 12:30 12/14/19 08:29 Nitroglycerin (Ntg) 0.4 mg Q5M X 3 DOSES PRN SL Prn Chest Pain 12/08/19 12:15 01/06/20 08:14 Ondansetron HCl (Zofran) 4 mg Q6H PRN IVP Nausea & Vomiting 12/08/19 12:30 01/06/20 12:29 Pantoprazole (Protonix) 40 mg DAILY IVP 12/09/19 09:00 01/06/20 08:59 Polyethylene Glycol (Miralax) 17 gm HSPRN PRN ORAL Constipation 12/08/19 12:30 01/07/20 12:29 Temazepam (Restoril) 15 mg HSPRN PRN ORAL Insomnia 12/08/19 12:30 12/15/19 12:29 Allergies: Coded Allergies: No Known Allergies (Unverified , 11/16/14) ROS Limited/Unobtainable: No Constitutional: Reports: no symptoms HEENT: Reports: no symptoms Cardiovascular: Reports: no symptoms Respiratory: Reports: no symptoms Gastrointestinal/Abdominal: Reports: abdominal pain Genitourinary: Reports: no symptoms Neurologic/Psychiatric: Reports: no symptoms Subjective 69 YO M admitted with epigastric pain. Now cholelithiasis and cholecystitis. Await ERCP for possible choledocholithiasis. Cover for Int Med-DR Goodson Objective Last Vital Signs Date Time Temp Pulse Resp B/P (MAP) Pulse Ox O2 Delivery O2 Flow Rate FiO2 12/08/19 16:00 99.5 69 18 138/68 (91) 95 70 12/08/19 09:00 Room Air Laboratory Tests Test 12/08/19 04:00 12/08/19 04:20 Lactic Acid Level 1.10 mmol/L (0.4-2.0) White Blood Count 10.2 K/UL (4.8-10.8) Red Blood Count 4.21 M/UL (4.70-6.10) L Hemoglobin 13.0 G/DL (14.2-18.0) L Hematocrit 37.4 % (42.0-52.0) L Mean Corpuscular Volume 89 FL (80-99) Mean Corpuscular Hemoglobin 30.9 PG (27.0-31.0) Mean Corpuscular Hemoglobin Concent 34.9 G/DL (32.0-36.0) Red Cell Distribution Width 12.2 % (11.6-14.8) Platelet Count 153 K/UL (150-450) Mean Platelet Volume 6.5 FL (6.5-10.1) Neutrophils (%) (Auto) % (45.0-75.0) Lymphocytes (%) (Auto) % (20.0-45.0) Monocytes (%) (Auto) % (1.0-10.0) Eosinophils (%) (Auto) % (0.0-3.0) Basophils (%) (Auto) % (0.0-2.0) Erythrocyte Sedimentation Rate 40 MM/HR (0-20) H Activated Partial Thromboplast Time 29 SEC (23-33) Sodium Level 141 MMOL/L (136-145) Potassium Level 3.8 MMOL/L (3.5-5.1) Chloride Level 108 MMOL/L (98-107) H Carbon Dioxide Level 24 MMOL/L (21-32) Anion Gap 9 mmol/L (5-15) Blood Urea Nitrogen 17 mg/dL (7-18) Creatinine 1.1 MG/DL (0.55-1.30) Estimat Glomerular Filtration Rate > 60 mL/min (>60) Glucose Level 85 MG/DL (74-106) Calcium Level 8.1 MG/DL (8.5-10.1) L Total Bilirubin 4.8 MG/DL (0.2-1.0) H Direct Bilirubin 4.1 MG/DL (0.0-0.3) H Aspartate Amino Transf (AST/SGOT) 272 U/L (15-37) H Alanine Aminotransferase (ALT/SGPT) 429 U/L (12-78) H Alkaline Phosphatase 81 U/L (46-116) Troponin I 0.030 ng/mL (0.000-0.056) C-Reactive Protein, Quantitative 13.7 mg/dL (0.00-0.90) H Pro-B-Type Natriuretic Peptide 946 pg/mL (0-125) H Total Protein 6.6 G/DL (6.4-8.2) Albumin 3.0 G/DL (3.4-5.0) L Globulin 3.6 g/dL Albumin/Globulin Ratio 0.8 (1.0-2.7) L Triglycerides Level 133 MG/DL (30-150) Cholesterol Level 66 MG/DL (< 200) LDL Cholesterol 23 mg/dL (<100) HDL Cholesterol 19 MG/DL (40-60) L Cholesterol/HDL Ratio 3.5 (3.3-4.4) Amylase Level 62 U/L (25-115) Lipase 108 U/L (73-393) Carcinoembryonic Antigen Pending Thyroid Stimulating Hormone (TSH) 0.155 uiU/mL (0.358-3.740) Microbiology Date/Time Source Procedure Growth Status 12/06/19 22:59 Blood Blood Culture - Preliminary Resulted 12/06/19 22:53 Blood Blood Culture - Preliminary NO GROWTH AFTER 24 HOURS Resulted Intake and Output 12/07/19 12/08/19 19:00 07:00 Intake Total 835 ml 915 ml Output Total 800 ml Balance 835 ml 115 ml IV Total 835 ml 915 ml Output Urine Total 800 ml # Voids 4 # Bowel Movements 1 Objective PHYSICAL EXAMINATION: GENERAL: The patient is well-developed, well-nourished white male, who is in moderate pain. HEENT: Eyes, pupils are equal and responsive to light and accommodation. Extraocular movements are intact. NECK: Supple. No lymphadenopathy. CHEST: Lungs are clear to auscultation bilaterally without wheezes or rales. CARDIOVASCULAR: Tachycardic, regular rhythm. S1, S2 are normal without murmurs, rubs, or gallops. ABDOMEN: Soft, tender to palpation in the epigastric region, no rebound or guarding noted. EXTREMITIES: Negative for clubbing, cyanosis, or edema. RECTAL/GENITAL: Not performed. NEUROLOGICAL: Cranial nerves II through XII are grossly intact without focal deficits. Motor strength is 5/5 bilaterally. Deep tendon reflexes are 2+ plantar. Assessment/Plan Assessment/Plan ASSESSMENT: This is a 69-year-old white male. 1. Cholecystitis. 2. Cholelithiasis. 3. Epigastric pain. 4. Elevated liver function tests. 5. Hypertension. 6. Diabetes type 2. 7. Possible choledocholithiasis TREATMENT: 1. Cholecystitis/cholelithiasis/elevated liver function tests. A Surgery consultation has been obtained with Dr. Castellano. The patient is currently NPO. A HIDA scan is pending. The patient may require emergent cholecystectomy during this hospitalization. We will follow recommendations of Surgery. 2. Diabetes type 2. A NovoLog sliding scale has been instituted. The patient is unsure of his home medication. The patient is currently NPO. Fingerstick blood sugars will be performed before meals and at bedtime. 3. Hypertension. The patient is currently hypotensive. 4. Await ERCP 12/09/19-see GI note=Dr Pollard 5. ABX=cefepime Sergey Wolf MD Dec 08, 2019 18:20
[2019-12-08] MEDS ORDERED: Omnipaque-300 100ml vial INJ PRN (18:45)
--- NOTE | 2019-12-08 19:30 | NUR ---
NURSE NOTES: Patient a/a/o x 4, speaks Farshi. Family member () at the bedside. Patient breathing unlabored on room air without distress. Verbalized pain on the lower extremities, will follow up appropriately with ordered pain medication. IV noted on left antecubital intact, dry, and patent running IVF as ordered. IV site noted redness, but patient refused to change IV at this time. Otherwise, IV flushes well without any resistance or pain. Bed placed at the lowest with alarm, brake, and siderails up for safety. Call light placed within reach and encouraged to use. Will continue to monitor and provide care as ordered.
--- NOTE | 2019-12-08 19:31 | NUR ---
HAND-OFF: Report given to AYAKA Fraser.
[2019-12-08] MEDS: Morphine Sulfate 2mg/ml Inj(IV/IM USE ONLY) IVP PRN (20:01)
[2019-12-09] VITALS (10 sets, daily range): BP systolic 132–172; BP diastolic 58–80
[2019-12-09] MEDS: D5NS 1,000 ML IV SCH ×2 (00:40→15:30)
[2019-12-09] MEDS: metroNIDAZOLE 500mg tab ORAL SCH ×3 (05:58→21:33)
[2019-12-09] MEDS: NovoLOG Insulin Flexpen SUBQ SCH ×4 (06:03→20:37)
--- NOTE | 2019-12-09 06:03 | NUR ---
NURSE NOTES: Patient blood sugar reading 149 mg/dl. Patient is NPO. Non-administered insulin per hospital policy. Charge nurse made aware.
[2019-12-09] MEDS ORDERED: Midazolam 2mg/2ml Inj ONE (06:38)
[2019-12-09] MEDS ORDERED: fentaNYL 100 mcg/2 mL IV ONE (06:38)
[2019-12-09] MEDS ORDERED: Succinylcholine 20mg/ml 10ml vial ONE (06:40)
[2019-12-09 06:41] LABS: BASOPHILS % (AUTO) 0.6 % (0.0-2.0); EOSINOPHILS % (AUTO) 1.2 % (0.0-3.0); HEMATOCRIT 35.8 % (42.0-52.0); HEMOGLOBIN 12.5 G/DL (14.2-18.0); LYMPHOCYTES % (AUTO) 10.5 % (20.0-45.0); MEAN CORPUSCULAR VOLUME 89 FL (80-99); MONOCYTES % (AUTO) 8.2 % (1.0-10.0); NEUTROPHILS % (AUTO) 79.5 % (45.0-75.0); PLATELET COUNT 155 K/UL (150-450); RED BLOOD COUNT 4.03 M/UL (4.70-6.10); RED CELL DISTRIBUTION WIDTH 12.2 % (11.6-14.8); WHITE BLOOD COUNT 6.2 K/UL (4.8-10.8)
--- NOTE | 2019-12-09 07:02 | NUR ---
NURSE NOTES: Spoke with Denisha from Microbiology. Other set of blood culture reading positive for gram positive cocci. Reached Dr. Shabazz to inform about the new result. Was not able to reach Dr. Shabazz at this time. Left a message and waiting for a call back. Will endorse to the dayshift.
[2019-12-09] MEDS ORDERED: Iothalamate Meglumine 60% 50ML INJ ONE ×2 (07:03→08:10)
[2019-12-09 07:23] LABS: PHOSPHORUS 1.8 MG/DL (2.5-4.9)
--- NOTE | 2019-12-09 07:29 | NUR ---
HAND-OFF: Report given to AYAKA Engel. Patient in stable condition. Plan of care endorsed. Informed dayshift RN about the new result for blood cultures.
--- NOTE | 2019-12-09 07:35 | NUR ---
NURSE NOTES: Received pt in bed, sleeping. Room air. No s/s of distress/pain. IV on LAC 20g intact and patent, running D5NS @ 75 ml/hr. Side rails x 2. Bed in the lowest, locked, and alarm on. Call light within reach. Will continue to monitor
[2019-12-09 07:42] LABS: ALANINE AMINOTRANSFERASE 275 U/L (12-78); ALBUMIN 2.8 G/DL (3.4-5.0); ALBUMIN/GLOBULIN RATIO 0.8 (1.0-2.7); ALKALINE PHOSPHATASE 79 U/L (46-116); ANION GAP 9 mmol/L (5-15); ASPARTATE AMINO TRANSFERASE 127 U/L (15-37); BILIRUBIN,TOTAL 2.5 MG/DL (0.2-1.0); BLOOD UREA NITROGEN 17 mg/dL (7-18); CARBON DIOXIDE 24 MMOL/L (21-32); CHLORIDE 110 MMOL/L (98-107); CREATININE 1.2 MG/DL (0.55-1.30); POTASSIUM 3.5 MMOL/L (3.5-5.1); SODIUM 143 MMOL/L (136-145)
--- NOTE | 2019-12-09 07:54 | Pre-Procedure Note/Attestation ---
Pre-Procedure Note/Attestation Complete Prior to Procedure Planned Procedure: not applicable Procedure Narrative: ercp Indications for Procedure Pre-Operative Diagnosis: choledocholithiasis Attestation I attest that I discussed the nature of the procedure; its benefits; risks and complications; and alternatives (and the risks and benefits of such alternatives ), prior to the procedure, with the patient (or the patient's legal solar manufacturer's representative). I attest that, if there was a reasonable possibility of needing a blood transfusion, the patient (or the patient's legal solar manufacturer's representative) was given the [facility] standardized written summary, pursuant to the Trino Annia Blood Safety Act ([place] Health and Safety Code # 1645, as amended). I attest that I re-evaluated the patient just prior to the surgery and that there has been no change in the patient's H&P, except as documented below: Klaus Pollard MD Dec 09, 2019 07:54
--- NOTE | 2019-12-09 07:58 | NUR ---
NURSE NOTES: Pt is off unit for ERCP
[2019-12-09] MEDS: Heparin 5000 units/ml inj SUBQ SCH ×2 (07:59→20:39)
[2019-12-09] MEDS ORDERED: Propofol 200mg/20ml IV ONE (08:00)
[2019-12-09] MEDS ORDERED: Lidocaine 1% MPF 10mg/ml 5ml ONE (08:00)
[2019-12-09] MEDS ORDERED: LR 1000ml ONE (08:00)
[2019-12-09] MEDS ORDERED: NS 500ML IVPB ONE (08:02)
--- NOTE | 2019-12-09 08:42 | Anethesia Preoperative Eval ---
Anesthesia Pre-op PMH/ROS General Date of Evaluation: Dec 09, 2019 Time of Evaluation: 08:00 Anesthesiologist: sidney ASA Score: ASA 2 Mallampati Score Class I : Soft palate, uvula, fauces, pillars visible Class II: Soft palate, uvula, fauces visible Class III: Soft palate, base of uvula visible Class IV: Only hard plate visible Mallampati Classification: Class II Surgeon: Phuong Diagnosis: Cholecystitis Surgical Procedure: ERCP Anesthesia History: none Family History: no anesthesia problems Allergies: Coded Allergies: No Known Allergies (Unverified , 11/16/14) Patient NPO?: Yes NPO Date: Dec 07, 2019 NPO Time: 0810 Past Medical History Cardiovascular: Reports: HTN Pulmonary: Denies: asthma, COPD, SHANNA, other Gastrointestinal/Genitourinary: Reports: GERD, other - cholecystitis; Denies: CRI, ESRD Neurologic/Psychiatric: Denies: dementia, CVA, depression/anxiety, TIA, other Endocrine: Reports: DM; Denies: hypothyroidism, steroids, other HEENT: Denies: cataract (L), cataract (R), glaucoma, SHUNG[place]K (L), SHUNG[place]K (R), other Hematology/Immune: Reports: anemia; Denies: DVT, bleeding disorder, other Musculoskeletal/Integumentary: Denies: OA, RA, DJD, DDD, edema, other PSxH Narrative: Prostatectomy Anesthesia Pre-op Phys. Exam Physician Exam Last Vital Signs Date Time Temp Pulse Resp B/P (MAP) Pulse Ox O2 Delivery O2 Flow Rate FiO2 12/09/19 08:35 68 20 156/69 100 Simple Mask 6 12/09/19 08:30 97.5 Constitutional: NAD Neurologic: CN 2-12 intact Cardiovascular: RRR Respiratory: CTA Gastrointestinal: S/NT/ND Airway Exam Mallampati Classification 2 Mallampati Score: Class II MO: limited Neck: thick TMD: 2fb ROM: limited Teeth: missing, loose, other - broken Anesthesia Pre-op A/P Labs Hematology Test 12/09/19 05:45 White Blood Count 6.2 K/UL (4.8-10.8) Red Blood Count 4.03 M/UL (4.70-6.10) L Hemoglobin 12.5 G/DL (14.2-18.0) L Hematocrit 35.8 % (42.0-52.0) L Mean Corpuscular Volume 89 FL (80-99) Mean Corpuscular Hemoglobin 30.9 PG (27.0-31.0) Mean Corpuscular Hemoglobin Concent 34.8 G/DL (32.0-36.0) Red Cell Distribution Width 12.2 % (11.6-14.8) Platelet Count 155 K/UL (150-450) Mean Platelet Volume 7.3 FL (6.5-10.1) Neutrophils (%) (Auto) 79.5 % (45.0-75.0) H Lymphocytes (%) (Auto) 10.5 % (20.0-45.0) L Monocytes (%) (Auto) 8.2 % (1.0-10.0) Eosinophils (%) (Auto) 1.2 % (0.0-3.0) Basophils (%) (Auto) 0.6 % (0.0-2.0) Erythrocyte Sedimentation Rate Pending Chemistry Test 12/09/19 05:45 Sodium Level 143 MMOL/L (136-145) Potassium Level 3.5 MMOL/L (3.5-5.1) Chloride Level 110 MMOL/L (98-107) H Carbon Dioxide Level 24 MMOL/L (21-32) Anion Gap 9 mmol/L (5-15) Blood Urea Nitrogen 17 mg/dL (7-18) Creatinine 1.2 MG/DL (0.55-1.30) Estimat Glomerular Filtration Rate > 60 mL/min (>60) Glucose Level 155 MG/DL (74-106) H Calcium Level 8.0 MG/DL (8.5-10.1) L Phosphorus Level 1.8 MG/DL (2.5-4.9) L Magnesium Level 2.2 MG/DL (1.8-2.4) Total Bilirubin 2.5 MG/DL (0.2-1.0) H Direct Bilirubin 2.0 MG/DL (0.0-0.3) H Aspartate Amino Transf (AST/SGOT) 127 U/L (15-37) H Alanine Aminotransferase (ALT/SGPT) 275 U/L (12-78) H Alkaline Phosphatase 79 U/L (46-116) C-Reactive Protein, Quantitative 8.2 mg/dL (0.00-0.90) H Total Protein 6.3 G/DL (6.4-8.2) L Albumin 2.8 G/DL (3.4-5.0) L Globulin 3.5 g/dL Albumin/Globulin Ratio 0.8 (1.0-2.7) L Lipase Pending Studies Pre-op Studies: EKG - SR Risk Assessment & Plan Plan: MAC Status Change Before Surgery: No Pre-Antibiotics Drug: none Adele Smallwood TANK REFINISHER Dec 09, 2019 08:42
--- NOTE | 2019-12-09 08:43 | Immediate Post-Op Evaluation ---
Immediate Post-Op Evalulation Immediate Post-Op Evalulation Procedure: ERCP Date of Evaluation: Dec 09, 2019 Time of Evaluation: 08:42 IV Fluids: 300 Blood Pressure Systolic: 116 Blood Pressure Diastolic: 70 Pulse Rate: 75 Respiratory Rate: 14 O2 Sat by Pulse Oximetry: 100 Temperature (Fahrenheit): 97.5 Nausea: No Vomiting: No Complications none Patient Status: awake, reacts, patent Hydration Status: adequate Drug: none Adele Smallwood CRNA Dec 09, 2019 08:43
--- NOTE | 2019-12-09 08:47 | Endoscopy Procedure Note ---
Endoscopy Procedure Note General Indication for Procedure: choledocholithiasis Procedures Performed: ERCP Operative Findings/Diagnosis: same Specimen: none Pt Tolerated Procedure Well: Yes Estimated Blood Loss: none Anesthesia Anesthesiologist: marco Anesthesia: MAC Inserted Devices Implant(s) used?: No GI Core Measures 50 yrs or older w/o bx or poly: Not Applicable 10yrs. F/U recommended: Not Applicable Klaus Pollard MD Dec 09, 2019 08:47
[2019-12-09] MEDS: Aspirin Baby 81mg NG SCH (09:00)
[2019-12-09] MEDS: Cefepime HCl 1 GM in D5W 55 ML IVPB SCH ×2 (09:00→20:39)
[2019-12-09] MEDS ORDERED: cloNIDine 0.2mg Tab ORAL PRN (09:30)
--- NOTE | 2019-12-09 09:37 | Diagnostic Imaging Report ---
INDICATION: Pain, intraoperative TECHNIQUE: Intraoperative imaging during ERCP by Dr. Ramirez Fluoroscopy time: 193 seconds Total dose: 1.07 mGym2 Total number of images: 6 COMPARISON: None FINDINGS: Intraoperative images document opacification of the common bile duct, subsequently placement of sphincterotome and stone extraction balloon. IMPRESSION: Intraoperative imaging, as described
--- NOTE | 2019-12-09 09:40 | NUR ---
NURSE NOTES: Pt came back to floor. Vital was taken. Bp 172/66 and HR [address] Notified dr. Monaco and got order for clonidine 0.2 mg q2hr prn SBP>170. Will be given to patient and continue to monitor
[2019-12-09] MEDS: Pantoprazole Inj IVP SCH (09:42)
[2019-12-09] MEDS: Morphine Sulfate 2mg/ml Inj(IV/IM USE ONLY) IVP PRN ×2 (09:42→15:53)
--- NOTE | 2019-12-09 11:34 | Cardiac Electrophysiology PN ---
Assessment/Plan Assessment/Plan 1. Troponin elevation. Two out of 3 troponins are negative. EKG showed nonspecific T-wave abnormality with no ST elevation. Echocardiogram Nl EF. No chest pain. No prior PA or CHF. Continue aspirin and Lopressor 25 bid 2. Hypertension. On Loppressor 25 bid 3. Diabetes. 4. Cholecystitis, on antibiotic . SP EGD and ERCP FU Dr Castellano. Patient and prefer to do it as out patient at [facility] , RN, and daughter, Glen Subjective Subjective No CP or SOB. Just underwent ERCP. Dr Castellano and at bedside Objective Last 24 Hour Vital Signs Date Time Temp Pulse Resp B/P (MAP) Pulse Ox O2 Delivery O2 Flow Rate FiO2 12/09/19 09:42 172/66 12/09/19 09:39 97.7 55 16 172/66 (101) 94 12/09/19 09:00 55 172/66 12/09/19 09:00 Room Air 12/09/19 08:55 97.9 58 21 166/66 100 Room Air 12/09/19 08:43 75 14 100 12/09/19 08:40 61 21 168/72 100 Simple Mask 6 12/09/19 08:35 68 20 156/69 100 Simple Mask 6 12/09/19 08:30 97.5 75 18 137/65 100 Simple Mask 6 12/09/19 06:06 97.9 56 18 140/59 (86) 97 56 12/09/19 00:44 99.4 12/09/19 00:44 99.4 12/09/19 00:00 100.1 62 16 140/58 (85) 97 62 12/08/19 21:00 Room Air 12/08/19 20:41 66 146/60 12/08/19 20:40 99.3 66 146/60 (88) 66 12/08/19 20:00 99.8 71 17 142/73 (96) 96 71 12/08/19 16:00 99.5 69 18 138/68 (91) 95 70 12/08/19 12:15 99.1 66 18 149/67 (94) 97 12/08/19 12:00 97.9 69 18 147/69 (95) 95 Intake and Output 12/08/19 12/09/19 19:00 07:00 Intake Total 880 ml Output Total 200 ml 350 ml Balance -200 ml 530 ml IV Total 880 ml Output Urine Total 200 ml 350 ml # Voids 2 3 Laboratory Tests Test 12/09/19 05:45 White Blood Count 6.2 K/UL (4.8-10.8) Red Blood Count 4.03 M/UL (4.70-6.10) L Hemoglobin 12.5 G/DL (14.2-18.0) L Hematocrit 35.8 % (42.0-52.0) L Mean Corpuscular Volume 89 FL (80-99) Mean Corpuscular Hemoglobin 30.9 PG (27.0-31.0) Mean Corpuscular Hemoglobin Concent 34.8 G/DL (32.0-36.0) Red Cell Distribution Width 12.2 % (11.6-14.8) Platelet Count 155 K/UL (150-450) Mean Platelet Volume 7.3 FL (6.5-10.1) Neutrophils (%) (Auto) 79.5 % (45.0-75.0) H Lymphocytes (%) (Auto) 10.5 % (20.0-45.0) L Monocytes (%) (Auto) 8.2 % (1.0-10.0) Eosinophils (%) (Auto) 1.2 % (0.0-3.0) Basophils (%) (Auto) 0.6 % (0.0-2.0) Erythrocyte Sedimentation Rate 52 MM/HR (0-20) H Sodium Level 143 MMOL/L (136-145) Potassium Level 3.5 MMOL/L (3.5-5.1) Chloride Level 110 MMOL/L (98-107) H Carbon Dioxide Level 24 MMOL/L (21-32) Anion Gap 9 mmol/L (5-15) Blood Urea Nitrogen 17 mg/dL (7-18) Creatinine 1.2 MG/DL (0.55-1.30) Estimat Glomerular Filtration Rate > 60 mL/min (>60) Glucose Level 155 MG/DL (74-106) H Calcium Level 8.0 MG/DL (8.5-10.1) L Phosphorus Level 1.8 MG/DL (2.5-4.9) L Magnesium Level 2.2 MG/DL (1.8-2.4) Total Bilirubin 2.5 MG/DL (0.2-1.0) H Direct Bilirubin 2.0 MG/DL (0.0-0.3) H Aspartate Amino Transf (AST/SGOT) 127 U/L (15-37) H Alanine Aminotransferase (ALT/SGPT) 275 U/L (12-78) H Alkaline Phosphatase 79 U/L (46-116) C-Reactive Protein, Quantitative 8.2 mg/dL (0.00-0.90) H Total Protein 6.3 G/DL (6.4-8.2) L Albumin 2.8 G/DL (3.4-5.0) L Globulin 3.5 g/dL Albumin/Globulin Ratio 0.8 (1.0-2.7) L Lipase 162 U/L (73-393) Microbiology Date/Time Source Procedure Growth Status 12/06/19 22:59 Blood Blood Culture - Preliminary Gram Negative Bacillus 1 Resulted 12/06/19 22:53 Blood Blood Culture - Preliminary Staphylococcus Sp Coag Neg Resulted Objective HEAD AND NECK: No JVD. LUNGS: Clear. CARDIOVASCULAR: Regular S1 and S2 with no gallop. ABDOMEN: Soft. EXTREMITIES: No pitting edema. Mat Monaco MD Dec 09, 2019 11:34
--- NOTE | 2019-12-09 11:56 | Infectious Diseases Prog Note ---
Assessment/Plan Assessment/Plan Abx: Cefepime 12/06- Flagyl 12/06- Assessment: Sepsis Acute cholecystitis, choledocholithiasis, cholangitis Gram negative bacteremia CONS bacteremia, likely contaminant -12/09 SP ERCP -12/06 CT abd/p w/: 15 mm polyps, sludge ball versus stone in the body of the gallbladder. Suspect trace of pericholecystic fluid. These findings are nonspecific. Abd uS Small stones in the gallbladder. Gallbladder wall measures 6 mm in maximal thickness. Trace of pericholecystic fluid. These findings are nonspecific. -12/06 Bcx / GNR, 11/15 BCx CONS; 12/08 Bcx p u/a neg CXR: Likely bibasilar atelectasis related to underinflation. Fever; improving no leukocytosis HTN Dm2 former smoker prostate CA s/p resection 2015 Plan: -Continue Cefepime and Flagyl #4 pending cultures -f/u cx -Monitor CBC/CMP, temperatures -f/u repeat Bcx x2 -aspiration precautions -Sx f/u -GI, Gen sx f/u Thank you for this consultation. Will continue to follow along with you. Discussed with RN Subjective Allergies: Coded Allergies: No Known Allergies (Unverified , 11/16/14) Subjective Tm 100.1 no leukocytosis repeat Bcx p sp ERCP today Objective Vital Signs Last 24 Hour Vital Signs Date Time Temp Pulse Resp B/P (MAP) Pulse Ox O2 Delivery O2 Flow Rate FiO2 12/09/19 09:42 172/66 12/09/19 09:39 97.7 55 16 172/66 (101) 94 12/09/19 09:00 55 172/66 12/09/19 09:00 Room Air 12/09/19 08:55 97.9 58 21 166/66 100 Room Air 12/09/19 08:43 75 14 100 12/09/19 08:40 61 21 168/72 100 Simple Mask 6 12/09/19 08:35 68 20 156/69 100 Simple Mask 6 12/09/19 08:30 97.5 75 18 137/65 100 Simple Mask 6 12/09/19 06:06 97.9 56 18 140/59 (86) 97 56 12/09/19 00:44 99.4 12/09/19 00:44 99.4 12/09/19 00:00 100.1 62 16 140/58 (85) 97 62 12/08/19 21:00 Room Air 12/08/19 20:41 66 146/60 12/08/19 20:40 99.3 66 146/60 (88) 66 12/08/19 20:00 99.8 71 17 142/73 (96) 96 71 12/08/19 16:00 99.5 69 18 138/68 (91) 95 70 12/08/19 12:15 99.1 66 18 149/67 (94) 97 12/08/19 12:00 97.9 69 18 147/69 (95) 95 Height (Feet): 5 Height (Inches): 6.00 Weight (Pounds): 160 Objective GENERAL: The patient is well-developed, well-nourished white male, who is in moderate pain. HEENT: Eyes, pupils are equal and responsive to light and accommodation. Extraocular movements are intact. NECK: Supple. No lymphadenopathy. CHEST: Lungs are clear to auscultation bilaterally without wheezes or rales. CARDIOVASCULAR: Tachycardic, regular rhythm. S1, S2 are normal without murmurs, rubs, or gallops. ABDOMEN: Soft, tender to palpation in the epigastric region, no rebound or guarding noted. EXTREMITIES: Negative for clubbing, cyanosis, or edema. Microbiology Date/Time Source Procedure Growth Status 12/06/19 22:59 Blood Blood Culture - Preliminary Gram Negative Bacillus 1 Resulted 12/06/19 22:53 Blood Blood Culture - Preliminary Staphylococcus Sp Coag Neg Resulted Laboratory Tests Test 12/09/19 05:45 White Blood Count 6.2 K/UL (4.8-10.8) Red Blood Count 4.03 M/UL (4.70-6.10) L Hemoglobin 12.5 G/DL (14.2-18.0) L Hematocrit 35.8 % (42.0-52.0) L Mean Corpuscular Volume 89 FL (80-99) Mean Corpuscular Hemoglobin 30.9 PG (27.0-31.0) Mean Corpuscular Hemoglobin Concent 34.8 G/DL (32.0-36.0) Red Cell Distribution Width 12.2 % (11.6-14.8) Platelet Count 155 K/UL (150-450) Mean Platelet Volume 7.3 FL (6.5-10.1) Neutrophils (%) (Auto) 79.5 % (45.0-75.0) H Lymphocytes (%) (Auto) 10.5 % (20.0-45.0) L Monocytes (%) (Auto) 8.2 % (1.0-10.0) Eosinophils (%) (Auto) 1.2 % (0.0-3.0) Basophils (%) (Auto) 0.6 % (0.0-2.0) Erythrocyte Sedimentation Rate 52 MM/HR (0-20) H Sodium Level 143 MMOL/L (136-145) Potassium Level 3.5 MMOL/L (3.5-5.1) Chloride Level 110 MMOL/L (98-107) H Carbon Dioxide Level 24 MMOL/L (21-32) Anion Gap 9 mmol/L (5-15) Blood Urea Nitrogen 17 mg/dL (7-18) Creatinine 1.2 MG/DL (0.55-1.30) Estimat Glomerular Filtration Rate > 60 mL/min (>60) Glucose Level 155 MG/DL (74-106) H Calcium Level 8.0 MG/DL (8.5-10.1) L Phosphorus Level 1.8 MG/DL (2.5-4.9) L Magnesium Level 2.2 MG/DL (1.8-2.4) Total Bilirubin 2.5 MG/DL (0.2-1.0) H Direct Bilirubin 2.0 MG/DL (0.0-0.3) H Aspartate Amino Transf (AST/SGOT) 127 U/L (15-37) H Alanine Aminotransferase (ALT/SGPT) 275 U/L (12-78) H Alkaline Phosphatase 79 U/L (46-116) C-Reactive Protein, Quantitative 8.2 mg/dL (0.00-0.90) H Total Protein 6.3 G/DL (6.4-8.2) L Albumin 2.8 G/DL (3.4-5.0) L Globulin 3.5 g/dL Albumin/Globulin Ratio 0.8 (1.0-2.7) L Lipase 162 U/L (73-393) Current Medications Medications (Trade) Dose Ordered Sig/Mariluz Route PRN Reason Start Time Stop Time Status Last Admin Dose Admin Acetaminophen (Tylenol) 650 mg Q4H PRN ORAL fever 12/08/19 12:15 01/06/20 08:14 12/08/19 23:48 Acetaminophen (Tylenol) 650 mg Q6H PRN ORAL Mild Pain (Pain Scale 1-3) 12/08/19 12:30 01/06/20 12:29 Aspirin (ASA) 81 mg DAILY NG 12/09/19 09:00 01/08/20 08:59 Cefepime HCl 1 gm/ Dextrose 55 ml @ 110 mls/hr EVERY 12 HOURS IVPB 12/08/19 21:00 12/14/19 08:59 12/09/19 09:00 Clonidine HCl (Catapres tab) 0.2 mg Q2H PRN ORAL SBP>170 12/09/19 09:30 01/08/20 09:29 12/09/19 09:42 Dextrose (Dextrose 50%) 25 ml Q30M PRN IV Hypoglycemia 12/08/19 12:15 01/06/20 08:14 Dextrose (Dextrose 50%) 50 ml Q30M PRN IV Hypoglycemia 12/08/19 12:15 01/06/20 08:14 Dextrose/Sodium Chloride 1,000 ml @ 75 mls/hr [id number] IV 12/08/19 12:15 01/07/20 08:29 12/09/19 00:40 Diphenhydramine HCl (Benadryl) 25 mg Q6H PRN ORAL Itching/Pruritis 12/08/19 12:30 01/06/20 12:29 Heparin Sodium (Porcine) (Heparin 5000 units/ml) 5,000 units EVERY 12 HOURS SUBQ 12/08/19 21:00 01/06/20 08:59 Insulin Aspart (NovoLOG) BEFORE MEALS AND HS SUBQ 12/08/19 16:30 01/06/20 11:29 12/09/19 11:43 Metoprolol Tartrate (Lopressor) 25 mg EVERY 12 HOURS ORAL 12/08/19 21:00 01/06/20 20:59 12/08/19 20:41 Metronidazole (Flagyl) 500 mg Q8HR ORAL 12/08/19 14:00 12/14/19 13:59 12/09/19 05:58 Morphine Sulfate (Morphine Sulfate) 2 mg Q4H PRN IVP Moderate Pain (Pain Scale 4-6) 12/08/19 12:30 12/14/19 08:29 12/09/19 09:42 Nitroglycerin (Ntg) 0.4 mg Q5M X 3 DOSES PRN SL Prn Chest Pain 12/08/19 12:15 01/06/20 08:14 Ondansetron HCl (Zofran) 4 mg Q6H PRN IVP Nausea & Vomiting 12/08/19 12:30 01/06/20 12:29 Pantoprazole (Protonix) 40 mg DAILY IVP 12/09/19 09:00 01/06/20 08:59 12/09/19 09:42 Polyethylene Glycol (Miralax) 17 gm HSPRN PRN ORAL Constipation 12/08/19 12:30 01/07/20 12:29 Temazepam (Restoril) 15 mg HSPRN PRN ORAL Insomnia 12/08/19 12:30 12/15/19 12:29 12/08/19 23:47 Toyin Shabazz M.D. Dec 09, 2019 11:56
--- NOTE | 2019-12-09 13:18 | Pulmonology Progress Note ---
Assessment/Plan Problems: (1) Cholecystitis with cholangitis (2) Chest pain (3) Epigastric pain (4) Hyperglycemia (5) Diabetes mellitus Assessment/Plan had ERCP today continue NPO iv fluids, check electrolytes check cultures sliding scale with insulin coverage dvt prophylaxis. Subjective ROS Limited/Unobtainable: No Interval Events: had ERCP today Allergies: Coded Allergies: No Known Allergies (Unverified , 11/16/14) Objective Last 24 Hour Vital Signs Date Time Temp Pulse Resp B/P (MAP) Pulse Ox O2 Delivery O2 Flow Rate FiO2 12/09/19 12:00 98.0 86 20 132/80 (97) 96 12/09/19 09:42 172/66 12/09/19 09:39 97.7 55 16 172/66 (101) 94 12/09/19 09:00 55 172/66 12/09/19 09:00 Room Air 12/09/19 08:55 97.9 58 21 166/66 100 Room Air 12/09/19 08:43 75 14 100 12/09/19 08:40 61 21 168/72 100 Simple Mask 6 12/09/19 08:35 68 20 156/69 100 Simple Mask 6 12/09/19 08:30 97.5 75 18 137/65 100 Simple Mask 6 12/09/19 06:06 97.9 56 18 140/59 (86) 97 56 12/09/19 00:44 99.4 12/09/19 00:44 99.4 12/09/19 00:00 100.1 62 16 140/58 (85) 97 62 12/08/19 21:00 Room Air 12/08/19 20:41 66 146/60 12/08/19 20:40 99.3 66 146/60 (88) 66 12/08/19 20:00 99.8 71 17 142/73 (96) 96 71 12/08/19 16:00 99.5 69 18 138/68 (91) 95 70 Intake and Output 12/08/19 12/09/19 19:00 07:00 Intake Total 880 ml Output Total 200 ml 350 ml Balance -200 ml 530 ml IV Total 880 ml Output Urine Total 200 ml 350 ml # Voids 2 3 General Appearance: WD/WN HEENT: atraumatic Respiratory/Chest: chest wall non-tender Cardiovascular: normal rate Abdomen: normal bowel sounds, no scars Extremities: no cyanosis Skin: no rash Neurologic/Psychiatric: global marketing manager II-XII grossly normal Lymphatic: no neck adenopathy Microbiology Date/Time Source Procedure Growth Status 12/06/19 22:59 Blood Blood Culture - Preliminary Gram Negative Bacillus 1 Resulted 12/06/19 22:53 Blood Blood Culture - Preliminary Staphylococcus Sp Coag Neg Resulted Laboratory Tests 12/09/19 05:45: White Blood Count 6.2, Red Blood Count 4.03L, Hemoglobin 12.5L, Hematocrit 35.8L , Mean Corpuscular Volume 89, Mean Corpuscular Hemoglobin 30.9, Mean Corpuscular Hemoglobin Concent 34.8, Red Cell Distribution Width 12.2, Platelet Count 155, Mean Platelet Volume 7.3, Neutrophils (%) (Auto) 79.5H, Lymphocytes ( %) (Auto) 10.5L, Monocytes (%) (Auto) 8.2, Eosinophils (%) (Auto) 1.2, Basophils (%) (Auto) 0.6, Erythrocyte Sedimentation Rate 52H, Sodium Level 143, Potassium Level 3.5, Chloride Level 110H, Carbon Dioxide Level 24, Anion Gap 9, Blood Urea Nitrogen 17, Creatinine 1.2, Estimat Glomerular Filtration Rate > 60 , Glucose Level 155H, Calcium Level 8.0L, Phosphorus Level 1.8L, Magnesium Level 2.2, Total Bilirubin 2.5H, Direct Bilirubin 2.0H, Aspartate Amino Transf ( AST/SGOT) 127H, Alanine Aminotransferase (ALT/SGPT) 275H, Alkaline Phosphatase 79, C-Reactive Protein, Quantitative 8.2H, Total Protein 6.3L, Albumin 2.8L, Globulin 3.5, Albumin/Globulin Ratio 0.8L, Lipase 162 Current Medications Medications (Trade) Dose Ordered Sig/Mariluz Route PRN Reason Start Time Stop Time Status Last Admin Dose Admin Acetaminophen (Tylenol) 650 mg Q4H PRN ORAL fever 12/08/19 12:15 01/06/20 08:14 12/08/19 23:48 Acetaminophen (Tylenol) 650 mg Q6H PRN ORAL Mild Pain (Pain Scale 1-3) 12/08/19 12:30 01/06/20 12:29 Aspirin (ASA) 81 mg DAILY NG 12/09/19 09:00 01/08/20 08:59 Cefepime HCl 1 gm/ Dextrose 55 ml @ 110 mls/hr EVERY 12 HOURS IVPB 12/08/19 21:00 12/14/19 08:59 12/09/19 09:00 Clonidine HCl (Catapres tab) 0.2 mg Q2H PRN ORAL SBP>170 12/09/19 09:30 01/08/20 09:29 12/09/19 09:42 Dextrose (Dextrose 50%) 25 ml Q30M PRN IV Hypoglycemia 12/08/19 12:15 01/06/20 08:14 Dextrose (Dextrose 50%) 50 ml Q30M PRN IV Hypoglycemia 12/08/19 12:15 01/06/20 08:14 Dextrose/Sodium Chloride 1,000 ml @ 75 mls/hr [id number] IV 12/08/19 12:15 01/07/20 08:29 12/09/19 00:40 Diphenhydramine HCl (Benadryl) 25 mg Q6H PRN ORAL Itching/Pruritis 12/08/19 12:30 01/06/20 12:29 Heparin Sodium (Porcine) (Heparin 5000 units/ml) 5,000 units EVERY 12 HOURS SUBQ 12/08/19 21:00 01/06/20 08:59 Insulin Aspart (NovoLOG) BEFORE MEALS AND HS SUBQ 12/08/19 16:30 01/06/20 11:29 12/09/19 11:43 Metoprolol Tartrate (Lopressor) 25 mg EVERY 12 HOURS ORAL 12/08/19 21:00 01/06/20 20:59 12/08/19 20:41 Metronidazole (Flagyl) 500 mg Q8HR ORAL 12/08/19 14:00 12/14/19 13:59 12/09/19 05:58 Morphine Sulfate (Morphine Sulfate) 2 mg Q4H PRN IVP Moderate Pain (Pain Scale 4-6) 12/08/19 12:30 12/14/19 08:29 12/09/19 09:42 Nitroglycerin (Ntg) 0.4 mg Q5M X 3 DOSES PRN SL Prn Chest Pain 12/08/19 12:15 01/06/20 08:14 Ondansetron HCl (Zofran) 4 mg Q6H PRN IVP Nausea & Vomiting 12/08/19 12:30 01/06/20 12:29 Pantoprazole (Protonix) 40 mg DAILY IVP 12/09/19 09:00 01/06/20 08:59 12/09/19 09:42 Polyethylene Glycol (Miralax) 17 gm HSPRN PRN ORAL Constipation 12/08/19 12:30 01/07/20 12:29 Temazepam (Restoril) 15 mg HSPRN PRN ORAL Insomnia 12/08/19 12:30 12/15/19 12:29 12/08/19 23:47 Alana Clarke MD Dec 09, 2019 13:18
--- NOTE | 2019-12-09 13:30 | Surgery Progress Note ---
Surgery Progress Note Subjective Additional Comments pain improved ERCP today labs improved no n/v/f/c Objective Last 24 Hour Vital Signs Date Time Temp Pulse Resp B/P (MAP) Pulse Ox O2 Delivery O2 Flow Rate FiO2 12/09/19 12:00 98.0 86 20 132/80 (97) 96 12/09/19 09:42 172/66 12/09/19 09:39 97.7 55 16 172/66 (101) 94 12/09/19 09:00 55 172/66 12/09/19 09:00 Room Air 12/09/19 08:55 97.9 58 21 166/66 100 Room Air 12/09/19 08:43 75 14 100 12/09/19 08:40 61 21 168/72 100 Simple Mask 6 12/09/19 08:35 68 20 156/69 100 Simple Mask 6 12/09/19 08:30 97.5 75 18 137/65 100 Simple Mask 6 12/09/19 06:06 97.9 56 18 140/59 (86) 97 56 12/09/19 00:44 99.4 12/09/19 00:44 99.4 12/09/19 00:00 100.1 62 16 140/58 (85) 97 62 12/08/19 21:00 Room Air 12/08/19 20:41 66 146/60 12/08/19 20:40 99.3 66 146/60 (88) 66 12/08/19 20:00 99.8 71 17 142/73 (96) 96 71 12/08/19 16:00 99.5 69 18 138/68 (91) 95 70 I&O Intake and Output 12/08/19 12/09/19 19:00 07:00 Intake Total 880 ml Output Total 200 ml 350 ml Balance -200 ml 530 ml IV Total 880 ml Output Urine Total 200 ml 350 ml # Voids 2 3 Cardiovascular: RSR Respiratory: clear Abdomen: soft, non-tender, present bowel sounds, non-distended Extremities: no edema, no tenderness, no cyanosis Laboratory Tests Test 12/09/19 05:45 White Blood Count 6.2 K/UL (4.8-10.8) Red Blood Count 4.03 M/UL (4.70-6.10) L Hemoglobin 12.5 G/DL (14.2-18.0) L Hematocrit 35.8 % (42.0-52.0) L Mean Corpuscular Volume 89 FL (80-99) Mean Corpuscular Hemoglobin 30.9 PG (27.0-31.0) Mean Corpuscular Hemoglobin Concent 34.8 G/DL (32.0-36.0) Red Cell Distribution Width 12.2 % (11.6-14.8) Platelet Count 155 K/UL (150-450) Mean Platelet Volume 7.3 FL (6.5-10.1) Neutrophils (%) (Auto) 79.5 % (45.0-75.0) H Lymphocytes (%) (Auto) 10.5 % (20.0-45.0) L Monocytes (%) (Auto) 8.2 % (1.0-10.0) Eosinophils (%) (Auto) 1.2 % (0.0-3.0) Basophils (%) (Auto) 0.6 % (0.0-2.0) Erythrocyte Sedimentation Rate 52 MM/HR (0-20) H Sodium Level 143 MMOL/L (136-145) Potassium Level 3.5 MMOL/L (3.5-5.1) Chloride Level 110 MMOL/L (98-107) H Carbon Dioxide Level 24 MMOL/L (21-32) Anion Gap 9 mmol/L (5-15) Blood Urea Nitrogen 17 mg/dL (7-18) Creatinine 1.2 MG/DL (0.55-1.30) Estimat Glomerular Filtration Rate > 60 mL/min (>60) Glucose Level 155 MG/DL (74-106) H Calcium Level 8.0 MG/DL (8.5-10.1) L Phosphorus Level 1.8 MG/DL (2.5-4.9) L Magnesium Level 2.2 MG/DL (1.8-2.4) Total Bilirubin 2.5 MG/DL (0.2-1.0) H Direct Bilirubin 2.0 MG/DL (0.0-0.3) H Aspartate Amino Transf (AST/SGOT) 127 U/L (15-37) H Alanine Aminotransferase (ALT/SGPT) 275 U/L (12-78) H Alkaline Phosphatase 79 U/L (46-116) C-Reactive Protein, Quantitative 8.2 mg/dL (0.00-0.90) H Total Protein 6.3 G/DL (6.4-8.2) L Albumin 2.8 G/DL (3.4-5.0) L Globulin 3.5 g/dL Albumin/Globulin Ratio 0.8 (1.0-2.7) L Lipase 162 U/L (73-393) Plan Problems: (1) Epigastric pain Assessment & Plan: 69-year-old male with epigastric pain right upper quadrant radiating to the back. febrile, no leukocytosis, lactic acidosis, CT and ultrasound as below likely acute cholecystitis choledocholithiasis N.p.o. IV fluids IV antibiotics Bowel rest s/p ERCP Trend labs discussed findings with patient and family. recommend lap claudia. cystic duct not able to visualize on ercp and obstructed. prior stone cbd now clear. acute claudia plan for or tomorrow consent We will follow with recommendations Thank you for let me participate in patient's care (2) Cholecystitis, acute with cholelithiasis Assessment & Plan: IMPRESSION: 1. Small stones in the gallbladder. 2. Gallbladder wall measures 6 mm in maximal thickness. 3. Trace of pericholecystic fluid. 4. These findings are nonspecific. ABDOMEN: Liver: Unremarkable. No mass. Gallbladder and bile ducts: 15 mm polyps, sludge ball versus stone in the body of the gallbladder, best seen on series image 27. Suspect trace of pericholecystic fluid. Moderate common duct dilatation measuring up in maximum, likely patient's age. Pancreas: Unremarkable. No mass. No ductal dilation. Spleen: Unremarkable. No splenomegaly. Adrenals: Unremarkable. No mass. Kidneys and ureters: Unremarkable. No solid mass. No hydronephrosis. Stomach and bowel: Unremarkable. No obstruction. No mucosal thickening. PELVIS: Appendix: No findings to suggest acute appendicitis. Bladder: Unremarkable. No mass. Reproductive: Prostatectomy ABDOMEN and PELVIS: Intraperitoneal space: Unremarkable. No free air. No significant fluid collection. Bones/joints: Osteopenia. Moderate degenerative change. Soft tissues: Unremarkable. Vasculature: Moderate amount of atherosclerotic calcifications. No abdominal aortic aneurysm. Lymph nodes: Unremarkable. No enlarged lymph nodes. IMPRESSION: 15 mm polyps, sludge ball versus stone in the body of the gallbladder. Suspect trace of pericholecystic fluid. These findings are nonspecific. Nii Castellano Dec 09, 2019 13:30
--- NOTE | 2019-12-09 13:32 | Pre-Procedure Note/Attestation ---
Pre-Procedure Note/Attestation Complete Prior to Procedure Procedure Narrative: laparoscopic cholecystectomy possible open Indications for Procedure Pre-Operative Diagnosis: acute cholecystitis Attestation I attest that I discussed the nature of the procedure; its benefits; risks and complications; and alternatives (and the risks and benefits of such alternatives ), prior to the procedure, with the patient (or the patient's legal applications sales representative). I attest that, if there was a reasonable possibility of needing a blood transfusion, the patient (or the patient's legal applications sales representative) was given the [facility] standardized written summary, pursuant to the [place] Blood Safety Act ([place] Health and Safety Code # 1645, as amended). I attest that I re-evaluated the patient just prior to the surgery and that there has been no change in the patient's H&P, except as documented below: Nii Castellano Dec 09, 2019 13:32
--- NOTE | 2019-12-09 15:45 | Procedure Note ---
DATE OF PROCEDURE: 12/09/2019 SURGEON: Klaus Pollard M.D. REFERRING PHYSICIAN: Stewart Goodson M.D. PROCEDURE: ERCP, sphincterotomy, stone removal. ANESTHESIA: Per ASSEMBLIES AND INSTALLATIONS INSPECTOR, Adele. INSTRUMENT: Olympus adult flexible ERCP scope. INDICATION: Choledocholithiasis. REASON FOR PROCEDURE: The procedure, risks, benefits, and possible consequences, including hemorrhage, aspiration, perforation and infection, and alternative treatments, were explained to the patient/legal guardian by Dr. Klaus Pollard and the patient/legal guardian understood and accepted these risks. DESCRIPTION OF PROCEDURE: After informed consent was obtained and the patient was adequately sedated, ERCP scope was advanced from mouth into the second portion of the duodenum. The patient had a large periampullary diverticulum. Using a sphincterotome, first wire passed through the pancreatic duct about three times and then successfully able to get the wire into the common bile duct. Initial cholangiogram showed mildly dilated common bile duct to about 9 to 10 mm in size. Then, over a guidewire, we performed 95% sphincterotomy. Then, we used a 9 mm balloon to sweep the duct multiple times and we removed some sludge, but no obvious stone was removed. Balloon occlusion cholangiogram showed no further filling defect in the common bile duct. The flow of contrast was excellent from the common bile duct to the duodenum, so no stent was placed. Of note, we could not fill out the cystic duct, so we cannot rule out acute cholecystitis. The patient tolerated the procedure very well without any complications. SUMMARY OF FINDINGS: 1. Periampullary diverticulum. 2. Status post successful ERCP, sphincterotomy, sludge/small stones removal. 3. Balloon occlusion cholangiogram. RECOMMENDATIONS: 1. Repeat labs. 2. Start clear liquid diet and advance as tolerated. 3. Follow Surgery recommendation for possible cholecystectomy if family agrees. I want to thank Dr. Stewart Goodson for this kind referral. Klaus Pollard M.D. DR: QUINTON JOB#: [id number] CC:
--- NOTE | 2019-12-09 16:45 | NUR ---
HAND-OFF: Report given to AYAKA Martinez.
--- NOTE | 2019-12-09 16:50 | NUR ---
NURSE NOTES: awake/alert. pain scale 5/10. ivf infusing. in no acute distress.
--- NOTE | 2019-12-09 17:29 | Internal Med Progress Note ---
Subjective Date of Service: Dec 09, 2019 Physician Name Sergey Wolf Attending Physician Stewart Goodson MD Current Medications Medications (Trade) Dose Ordered Sig/Mariluz Route PRN Reason Start Time Stop Time Status Last Admin Dose Admin Acetaminophen (Tylenol) 650 mg Q4H PRN ORAL fever 12/08/19 12:15 01/06/20 08:14 12/08/19 23:48 Acetaminophen (Tylenol) 650 mg Q6H PRN ORAL Mild Pain (Pain Scale 1-3) 12/08/19 12:30 01/06/20 12:29 Aspirin (ASA) 81 mg DAILY NG 12/09/19 09:00 01/08/20 08:59 Cefepime HCl 1 gm/ Dextrose 55 ml @ 110 mls/hr EVERY 12 HOURS IVPB 12/08/19 21:00 12/14/19 08:59 12/09/19 09:00 Clonidine HCl (Catapres tab) 0.2 mg Q2H PRN ORAL SBP>170 12/09/19 09:30 01/08/20 09:29 12/09/19 09:42 Dextrose (Dextrose 50%) 25 ml Q30M PRN IV Hypoglycemia 12/08/19 12:15 01/06/20 08:14 Dextrose (Dextrose 50%) 50 ml Q30M PRN IV Hypoglycemia 12/08/19 12:15 01/06/20 08:14 Dextrose/Sodium Chloride 1,000 ml @ 75 mls/hr [id number] IV 12/08/19 12:15 01/07/20 08:29 12/09/19 15:30 Diphenhydramine HCl (Benadryl) 25 mg Q6H PRN ORAL Itching/Pruritis 12/08/19 12:30 01/06/20 12:29 Heparin Sodium (Porcine) (Heparin 5000 units/ml) 5,000 units EVERY 12 HOURS SUBQ 12/08/19 21:00 01/06/20 08:59 Insulin Aspart (NovoLOG) BEFORE MEALS AND HS SUBQ 12/08/19 16:30 01/06/20 11:29 12/09/19 17:03 Metoprolol Tartrate (Lopressor) 25 mg EVERY 12 HOURS ORAL 12/08/19 21:00 01/06/20 20:59 12/08/19 20:41 Metronidazole (Flagyl) 500 mg Q8HR ORAL 12/08/19 14:00 12/14/19 13:59 12/09/19 14:16 Morphine Sulfate (Morphine Sulfate) 2 mg Q4H PRN IVP Moderate Pain (Pain Scale 4-6) 12/08/19 12:30 12/14/19 08:29 12/09/19 15:53 Nitroglycerin (Ntg) 0.4 mg Q5M X 3 DOSES PRN SL Prn Chest Pain 12/08/19 12:15 01/06/20 08:14 Ondansetron HCl (Zofran) 4 mg Q6H PRN IVP Nausea & Vomiting 12/08/19 12:30 01/06/20 12:29 Pantoprazole (Protonix) 40 mg DAILY IVP 12/09/19 09:00 01/06/20 08:59 12/09/19 09:42 Polyethylene Glycol (Miralax) 17 gm HSPRN PRN ORAL Constipation 12/08/19 12:30 01/07/20 12:29 Temazepam (Restoril) 15 mg HSPRN PRN ORAL Insomnia 12/08/19 12:30 12/15/19 12:29 12/08/19 23:47 Allergies: Coded Allergies: No Known Allergies (Unverified , 11/16/14) ROS Limited/Unobtainable: No Constitutional: Reports: no symptoms HEENT: Reports: no symptoms Cardiovascular: Reports: no symptoms Respiratory: Reports: no symptoms Gastrointestinal/Abdominal: Reports: abdominal pain Genitourinary: Reports: no symptoms Neurologic/Psychiatric: Reports: no symptoms Subjective 69 YO M admitted with epigastric pain. Now cholelithiasis and cholecystitis. S /P ERCP 12/09/19. Await lap claudia 12/10/19. Cover for Int Corwin-DR Goodson Objective Last Vital Signs Date Time Temp Pulse Resp B/P (MAP) Pulse Ox O2 Delivery O2 Flow Rate FiO2 12/09/19 16:00 99.2 60 20 145/65 (91) 97 12/09/19 09:00 Room Air 12/09/19 08:40 6 Laboratory Tests Test 12/09/19 05:45 White Blood Count 6.2 K/UL (4.8-10.8) Red Blood Count 4.03 M/UL (4.70-6.10) L Hemoglobin 12.5 G/DL (14.2-18.0) L Hematocrit 35.8 % (42.0-52.0) L Mean Corpuscular Volume 89 FL (80-99) Mean Corpuscular Hemoglobin 30.9 PG (27.0-31.0) Mean Corpuscular Hemoglobin Concent 34.8 G/DL (32.0-36.0) Red Cell Distribution Width 12.2 % (11.6-14.8) Platelet Count 155 K/UL (150-450) Mean Platelet Volume 7.3 FL (6.5-10.1) Neutrophils (%) (Auto) 79.5 % (45.0-75.0) H Lymphocytes (%) (Auto) 10.5 % (20.0-45.0) L Monocytes (%) (Auto) 8.2 % (1.0-10.0) Eosinophils (%) (Auto) 1.2 % (0.0-3.0) Basophils (%) (Auto) 0.6 % (0.0-2.0) Erythrocyte Sedimentation Rate 52 MM/HR (0-20) H Sodium Level 143 MMOL/L (136-145) Potassium Level 3.5 MMOL/L (3.5-5.1) Chloride Level 110 MMOL/L (98-107) H Carbon Dioxide Level 24 MMOL/L (21-32) Anion Gap 9 mmol/L (5-15) Blood Urea Nitrogen 17 mg/dL (7-18) Creatinine 1.2 MG/DL (0.55-1.30) Estimat Glomerular Filtration Rate > 60 mL/min (>60) Glucose Level 155 MG/DL (74-106) H Calcium Level 8.0 MG/DL (8.5-10.1) L Phosphorus Level 1.8 MG/DL (2.5-4.9) L Magnesium Level 2.2 MG/DL (1.8-2.4) Total Bilirubin 2.5 MG/DL (0.2-1.0) H Direct Bilirubin 2.0 MG/DL (0.0-0.3) H Aspartate Amino Transf (AST/SGOT) 127 U/L (15-37) H Alanine Aminotransferase (ALT/SGPT) 275 U/L (12-78) H Alkaline Phosphatase 79 U/L (46-116) C-Reactive Protein, Quantitative 8.2 mg/dL (0.00-0.90) H Total Protein 6.3 G/DL (6.4-8.2) L Albumin 2.8 G/DL (3.4-5.0) L Globulin 3.5 g/dL Albumin/Globulin Ratio 0.8 (1.0-2.7) L Lipase 162 U/L (73-393) Microbiology Date/Time Source Procedure Growth Status 12/06/19 22:59 Blood Blood Culture - Preliminary Gram Negative Bacillus 1 Resulted 12/06/19 22:53 Blood Blood Culture - Preliminary Staphylococcus Sp Coag Neg Resulted Intake and Output 12/08/19 12/09/19 19:00 07:00 Intake Total 880 ml Output Total 200 ml 350 ml Balance -200 ml 530 ml IV Total 880 ml Output Urine Total 200 ml 350 ml # Voids 2 3 Objective PHYSICAL EXAMINATION: GENERAL: The patient is well-developed, well-nourished white male, who is in moderate pain. HEENT: Eyes, pupils are equal and responsive to light and accommodation. Extraocular movements are intact. NECK: Supple. No lymphadenopathy. CHEST: Lungs are clear to auscultation bilaterally without wheezes or rales. CARDIOVASCULAR: Tachycardic, regular rhythm. S1, S2 are normal without murmurs, rubs, or gallops. ABDOMEN: Soft, tender to palpation in the epigastric region, no rebound or guarding noted. EXTREMITIES: Negative for clubbing, cyanosis, or edema. RECTAL/GENITAL: Not performed. NEUROLOGICAL: Cranial nerves II through XII are grossly intact without focal deficits. Motor strength is 5/5 bilaterally. Deep tendon reflexes are 2+ plantar. Assessment/Plan Assessment/Plan ASSESSMENT: This is a 69-year-old white male. 1. Cholecystitis. 2. Cholelithiasis. 3. Epigastric pain. 4. Elevated liver function tests. 5. Hypertension. 6. Diabetes type 2. 7. Possible choledocholithiasis TREATMENT: 1. Cholecystitis/cholelithiasis/elevated liver function tests. Surgery consultation = Dr. Castellano. The patient is currently NPO. Await laparoscopic cholecystectomy 12/10/19. We will follow recommendations of Surgery. 2. Diabetes type 2. A NovoLog sliding scale has been instituted. The patient is unsure of his home medication. The patient is currently NPO. Fingerstick blood sugars will be performed before meals and at bedtime. 3. Hypertension. The patient is currently hypotensive. 4. S/P ERCP 12/09/19-see GI note=Dr Pollard 5. ABX=cefepime and flagyl. ID=Sergey Schulte MD Dec 09, 2019 17:29
--- NOTE | 2019-12-09 19:00 | NUR ---
NURSE NOTES: RESTING IN BED. IN NO ACUTE DISTRESS. NPO P MN ADVISED.
--- NOTE | 2019-12-09 19:14 | NUR ---
HAND-OFF: Report given to Inna DURAN RN.
--- NOTE | 2019-12-09 19:23 | NUR ---
NURSE NOTES: Patient a/a/o x 4, breathing unlabored on room air without distress. Denies pain or discomfort at this time. Family member () at the bedside. IV noted on right forearm intact, dry, clean, and patent running IVF as ordered. Bed placed at the lowest with brake and siderails up for safety. Call light placed within reach and encouraged to use. Will continue to monitor and provide care as ordered.
[2019-12-10] VITALS (17 sets, daily range): BP systolic 145–180; BP diastolic 56–83
[2019-12-10] MEDS: D5NS 1,000 ML IV SCH ×2 (04:09→18:42)
[2019-12-10 05:45] LABS: BASOPHILS % (AUTO) 1.1 % (0.0-2.0); EOSINOPHILS % (AUTO) 2.4 % (0.0-3.0); HEMATOCRIT 36.2 % (42.0-52.0); HEMOGLOBIN 12.4 G/DL (14.2-18.0); LYMPHOCYTES % (AUTO) 17.1 % (20.0-45.0); MEAN CORPUSCULAR VOLUME 88 FL (80-99); NEUTROPHILS % (AUTO) 68.4 % (45.0-75.0); PLATELET COUNT 155 K/UL (150-450); RED CELL DISTRIBUTION WIDTH 12.4 % (11.6-14.8); WHITE BLOOD COUNT 4.1 K/UL (4.8-10.8)
[2019-12-10] MEDS: metroNIDAZOLE 500mg tab ORAL SCH ×3 (06:01→22:45)
[2019-12-10 06:12] LABS: ALANINE AMINOTRANSFERASE 213 U/L (12-78); ALBUMIN 2.8 G/DL (3.4-5.0); ALBUMIN/GLOBULIN RATIO 0.8 (1.0-2.7); ALKALINE PHOSPHATASE 93 U/L (46-116); ANION GAP 11 mmol/L (5-15); ASPARTATE AMINO TRANSFERASE 105 U/L (15-37); BILIRUBIN,TOTAL 1.9 MG/DL (0.2-1.0); BLOOD UREA NITROGEN 11 mg/dL (7-18); CARBON DIOXIDE 22 MMOL/L (21-32); CHLORIDE 111 MMOL/L (98-107); CREATININE 1.1 MG/DL (0.55-1.30); POTASSIUM 3.4 MMOL/L (3.5-5.1); SODIUM 144 MMOL/L (136-145)
[2019-12-10] MEDS: NovoLOG Insulin Flexpen SUBQ SCH ×4 (06:17→21:38)
[2019-12-10 06:34] LABS: BILIRUBIN,DIRECT 1.5 MG/DL (0.0-0.3)
--- NOTE | 2019-12-10 07:34 | NUR ---
NURSE NOTES: DPZING. PAIN SCALE 2/10.NPO MAINTAINED FOR SURGERY. IN NO DISTRESS.
--- NOTE | 2019-12-10 07:38 | NUR ---
HAND-OFF: Report given to AYAKA Martinez. Plan of care endorsed.
[2019-12-10] MEDS: Pantoprazole Inj IVP SCH (08:33)
[2019-12-10] MEDS: Cefepime HCl 1 GM in D5W 55 ML IVPB SCH (08:34)
[2019-12-10] MEDS: Aspirin Baby 81mg NG SCH (08:42)
[2019-12-10] MEDS: Heparin 5000 units/ml inj SUBQ SCH ×2 (08:42→21:00)
[2019-12-10] MEDS: Morphine Sulfate 2mg/ml Inj(IV/IM USE ONLY) IVP PRN (08:46)
--- NOTE | 2019-12-10 08:55 | 48 Hour Post Anesthesia Eval ---
Post Anesthesia Evaluation Procedure: ERCP Date of Evaluation: Dec 10, 2019 Time of Evaluation: 08:54 Blood Pressure Systolic: 162 0: 61 Pulse Rate: 64 Respiratory Rate: 14 Temperature (Fahrenheit): 98 Airway: patent Nausea: No Vomiting: No Hydration Status: adequate Mental Status/LOC: patient returned to baseline Post-Anesthesia Complications: none Follow-up care needed: N/A Adele Smallwood CRNA Dec 10, 2019 08:55
--- NOTE | 2019-12-10 09:53 | General Progress Note ---
Assessment/Plan Problem List: (1) Cholecystitis with cholangitis ICD Codes: K81.9 - Cholecystitis, unspecified; K83.09 - Other cholangitis SNOMED: 57026348 (2) Diabetes mellitus ICD Codes: E11.9 - Type 2 diabetes mellitus without complications SNOMED: 82866369 (3) Sepsis ICD Codes: A41.9 - Sepsis, unspecified organism SNOMED: 38833641 (4) Epigastric pain ICD Codes: R10.13 - Epigastric pain SNOMED: 82955371, 557867038 (5) Hyperglycemia ICD Codes: R73.9 - Hyperglycemia, unspecified SNOMED: 49522718, 245912089 Assessment/Plan: s/p ERCP improving LFTS abx pending surg for today Subjective ROS Limited/Unobtainable: Yes Allergies: Coded Allergies: No Known Allergies (Unverified , 11/16/14) Objective Last 24 Hour Vital Signs Date Time Temp Pulse Resp B/P (MAP) Pulse Ox O2 Delivery O2 Flow Rate FiO2 12/10/19 09:16 98.0 12/10/19 08:55 64 14 12/10/19 08:39 54 162/61 12/10/19 08:00 98.7 54 18 162/61 (94) 97 12/10/19 06:11 99.0 53 18 163/63 (96) 96 12/10/19 00:00 98.8 54 20 145/63 (90) 97 12/09/19 21:00 Room Air 12/09/19 21:00 55 138/49 12/09/19 19:50 98.6 52 18 138/65 (89) 96 12/09/19 16:00 99.2 60 20 145/65 (91) 97 12/09/19 12:00 98.0 86 20 132/80 (97) 96 Intake and Output 12/09/19 12/10/19 19:00 07:00 Intake Total 870 ml 805 ml Output Total 400 ml 500 ml Balance 470 ml 305 ml Intake Oral 240 ml IV Total 630 ml 805 ml Output Urine Total 400 ml 500 ml Laboratory Tests 12/10/19 05:20: White Blood Count 4.1L, Red Blood Count 4.10L, Hemoglobin 12.4L, Hematocrit 36.2L, Mean Corpuscular Volume 88, Mean Corpuscular Hemoglobin 30.2, Mean Corpuscular Hemoglobin Concent 34.2, Red Cell Distribution Width 12.4, Platelet Count 155, Mean Platelet Volume 7.4, Neutrophils (%) (Auto) 68.4, Lymphocytes (% ) (Auto) 17.1L, Monocytes (%) (Auto) 11.0H, Eosinophils (%) (Auto) 2.4, Basophils (%) (Auto) 1.1, Prothrombin Time 10.7, Prothromb Time International Ratio 1.0, Activated Partial Thromboplast Time 26, Sodium Level 144, Potassium Level 3.4L, Chloride Level 111H, Carbon Dioxide Level 22, Anion Gap 11, Blood Urea Nitrogen 11, Creatinine 1.1, Estimat Glomerular Filtration Rate > 60, Glucose Level 158H, Calcium Level 8.0L, Total Bilirubin 1.9H, Direct Bilirubin 1.5H, Aspartate Amino Transf (AST/SGOT) 105H, Alanine Aminotransferase (ALT/SGPT ) 213H, Alkaline Phosphatase 93, Total Protein 6.2L, Albumin 2.8L, Globulin 3.4 , Albumin/Globulin Ratio 0.8L Height (Feet): 5 Height (Inches): 6.00 Weight (Pounds): 153 General Appearance: alert EENT: normal ENT inspection Neck: supple Cardiovascular: normal rate Respiratory/Chest: decreased breath sounds Abdomen: normal bowel sounds, non tender, soft Extremities: non-tender lKaus Pollard MD Dec 10, 2019 09:53
--- NOTE | 2019-12-10 10:57 | Anethesia Preoperative Eval ---
Anesthesia Pre-op PMH/ROS General Date of Evaluation: Dec 10, 2019 Time of Evaluation: 10:52 Anesthesiologist: Robby ASA Score: ASA 2 Mallampati Score Class I : Soft palate, uvula, fauces, pillars visible Class II: Soft palate, uvula, fauces visible Class III: Soft palate, base of uvula visible Class IV: Only hard plate visible Mallampati Classification: Class II Surgeon: Nicole Diagnosis: Symptomatic cholelithiasis Surgical Procedure: Lap cholecystectmy Anesthesia History: none Family History: no anesthesia problems Allergies: Coded Allergies: No Known Allergies (Unverified , 11/16/14) Medications: see eMAR Patient NPO?: Yes NPO Date: Dec 09, 2019 NPO Time: 0000 Past Medical History Cardiovascular: Reports: HTN; Denies: CAD, NC, valve dz, arrhythmia, other Pulmonary: Denies: asthma, COPD, SHANNA, other Gastrointestinal/Genitourinary: Reports: GERD; Denies: CRI, ESRD, other Neurologic/Psychiatric: Denies: dementia, CVA, depression/anxiety, TIA, other Endocrine: Reports: DM; Denies: hypothyroidism, steroids, other HEENT: Denies: cataract (L), cataract (R), glaucoma, [place] (L), [place] (R), other Hematology/Immune: Reports: anemia - mild; Denies: DVT, bleeding disorder, other Musculoskeletal/Integumentary: Denies: OA, RA, DJD, DDD, edema, other PMH Narrative: as above, admitted for abdominal garfield PSxH Narrative: Prostatectomy for CA Anesthesia Pre-op Phys. Exam Physician Exam Last Vital Signs Date Time Temp Pulse Resp B/P (MAP) Pulse Ox O2 Delivery O2 Flow Rate FiO2 12/10/19 09:16 98.0 12/10/19 09:00 Room Air 12/10/19 08:55 64 14 12/10/19 08:39 162/61 12/10/19 08:00 97 12/09/19 08:40 6 Constitutional: NAD Neurologic: CN 2-12 intact Cardiovascular: RRR, no M/R/G Respiratory: CTA Gastrointestinal: S/NT/ND Airway Exam Mallampati Score: Class II MO: full Neck: stiff ROM: limited Teeth: intact Dentures: no upper, no lower Anesthesia Pre-op A/P Labs Hematology Test 12/10/19 05:20 White Blood Count 4.1 K/UL (4.8-10.8) L Red Blood Count 4.10 M/UL (4.70-6.10) L Hemoglobin 12.4 G/DL (14.2-18.0) L Hematocrit 36.2 % (42.0-52.0) L Mean Corpuscular Volume 88 FL (80-99) Mean Corpuscular Hemoglobin 30.2 PG (27.0-31.0) Mean Corpuscular Hemoglobin Concent 34.2 G/DL (32.0-36.0) Red Cell Distribution Width 12.4 % (11.6-14.8) Platelet Count 155 K/UL (150-450) Mean Platelet Volume 7.4 FL (6.5-10.1) Neutrophils (%) (Auto) 68.4 % (45.0-75.0) Lymphocytes (%) (Auto) 17.1 % (20.0-45.0) L Monocytes (%) (Auto) 11.0 % (1.0-10.0) H Eosinophils (%) (Auto) 2.4 % (0.0-3.0) Basophils (%) (Auto) 1.1 % (0.0-2.0) Coagulation Test 12/10/19 05:20 Prothrombin Time 10.7 SEC (9.30-11.50) Prothromb Time International Ratio 1.0 (0.9-1.1) Activated Partial Thromboplast Time 26 SEC (23-33) Chemistry Test 12/10/19 05:20 Sodium Level 144 MMOL/L (136-145) Potassium Level 3.4 MMOL/L (3.5-5.1) L Chloride Level 111 MMOL/L (98-107) H Carbon Dioxide Level 22 MMOL/L (21-32) Anion Gap 11 mmol/L (5-15) Blood Urea Nitrogen 11 mg/dL (7-18) Creatinine 1.1 MG/DL (0.55-1.30) Estimat Glomerular Filtration Rate > 60 mL/min (>60) Glucose Level 158 MG/DL (74-106) H Calcium Level 8.0 MG/DL (8.5-10.1) L Total Bilirubin 1.9 MG/DL (0.2-1.0) H Direct Bilirubin 1.5 MG/DL (0.0-0.3) H Aspartate Amino Transf (AST/SGOT) 105 U/L (15-37) H Alanine Aminotransferase (ALT/SGPT) 213 U/L (12-78) H Alkaline Phosphatase 93 U/L (46-116) Total Protein 6.2 G/DL (6.4-8.2) L Albumin 2.8 G/DL (3.4-5.0) L Globulin 3.4 g/dL Albumin/Globulin Ratio 0.8 (1.0-2.7) L Risk Assessment & Plan Assessment: ASA 2 Plan: GA with ETT Rene Bustamante MD Dec 10, 2019 10:57
--- NOTE | 2019-12-10 11:36 | Internal Med Progress Note ---
Subjective Date of Service: Dec 10, 2019 Physician Name Sergey Wolf Attending Physician Stewart Goodson MD Current Medications Medications (Trade) Dose Ordered Sig/Mariluz Route PRN Reason Start Time Stop Time Status Last Admin Dose Admin Acetaminophen (Tylenol) 650 mg Q4H PRN ORAL fever 12/08/19 12:15 01/06/20 08:14 12/08/19 23:48 Acetaminophen (Tylenol) 650 mg Q6H PRN ORAL Mild Pain (Pain Scale 1-3) 12/08/19 12:30 01/06/20 12:29 12/09/19 21:36 Aspirin (ASA) 81 mg DAILY NG 12/09/19 09:00 01/08/20 08:59 Cefepime HCl 1 gm/ Dextrose 55 ml @ 110 mls/hr EVERY 12 HOURS IVPB 12/08/19 21:00 12/14/19 08:59 12/10/19 08:34 Clonidine HCl (Catapres tab) 0.2 mg Q2H PRN ORAL SBP>170 12/09/19 09:30 01/08/20 09:29 12/09/19 09:42 Dextrose (Dextrose 50%) 25 ml Q30M PRN IV Hypoglycemia 12/08/19 12:15 01/06/20 08:14 Dextrose (Dextrose 50%) 50 ml Q30M PRN IV Hypoglycemia 12/08/19 12:15 01/06/20 08:14 Dextrose/Sodium Chloride 1,000 ml @ 75 mls/hr [id number] IV 12/08/19 12:15 01/07/20 08:29 12/10/19 04:09 Diphenhydramine HCl (Benadryl) 25 mg Q6H PRN ORAL Itching/Pruritis 12/08/19 12:30 01/06/20 12:29 Heparin Sodium (Porcine) (Heparin 5000 units/ml) 5,000 units EVERY 12 HOURS SUBQ 12/08/19 21:00 01/06/20 08:59 Insulin Aspart (NovoLOG) BEFORE MEALS AND HS SUBQ 12/08/19 16:30 01/06/20 11:29 12/09/19 20:37 Metoprolol Tartrate (Lopressor) 25 mg EVERY 12 HOURS ORAL 12/08/19 21:00 01/06/20 20:59 12/10/19 08:39 Metronidazole (Flagyl) 500 mg Q8HR ORAL 12/08/19 14:00 12/14/19 13:59 12/10/19 06:01 Morphine Sulfate (Morphine Sulfate) 2 mg Q4H PRN IVP Moderate Pain (Pain Scale 4-6) 12/08/19 12:30 12/14/19 08:29 12/10/19 08:46 Nitroglycerin (Ntg) 0.4 mg Q5M X 3 DOSES PRN SL Prn Chest Pain 12/08/19 12:15 01/06/20 08:14 Ondansetron HCl (Zofran) 4 mg Q6H PRN IVP Nausea & Vomiting 12/08/19 12:30 01/06/20 12:29 Pantoprazole (Protonix) 40 mg DAILY IVP 12/09/19 09:00 01/06/20 08:59 12/10/19 08:33 Polyethylene Glycol (Miralax) 17 gm HSPRN PRN ORAL Constipation 12/08/19 12:30 01/07/20 12:29 Temazepam (Restoril) 15 mg HSPRN PRN ORAL Insomnia 12/08/19 12:30 12/15/19 12:29 12/09/19 21:36 Allergies: Coded Allergies: No Known Allergies (Unverified , 11/16/14) ROS Limited/Unobtainable: No Constitutional: Reports: no symptoms HEENT: Reports: no symptoms Cardiovascular: Reports: no symptoms Respiratory: Reports: no symptoms Gastrointestinal/Abdominal: Reports: abdominal pain Genitourinary: Reports: no symptoms Neurologic/Psychiatric: Reports: no symptoms Subjective 69 YO M admitted with epigastric pain. Now cholelithiasis and cholecystitis. S /P ERCP 12/09/19. Await lap claudia today 12/10/19. Cover for Int Corwin-DR Goodson Objective Last Vital Signs Date Time Temp Pulse Resp B/P (MAP) Pulse Ox O2 Delivery O2 Flow Rate FiO2 12/10/19 09:16 98.0 12/10/19 09:00 Room Air 12/10/19 08:55 64 14 12/10/19 08:39 162/61 12/10/19 08:00 97 12/09/19 08:40 6 Laboratory Tests Test 12/10/19 05:20 White Blood Count 4.1 K/UL (4.8-10.8) L Red Blood Count 4.10 M/UL (4.70-6.10) L Hemoglobin 12.4 G/DL (14.2-18.0) L Hematocrit 36.2 % (42.0-52.0) L Mean Corpuscular Volume 88 FL (80-99) Mean Corpuscular Hemoglobin 30.2 PG (27.0-31.0) Mean Corpuscular Hemoglobin Concent 34.2 G/DL (32.0-36.0) Red Cell Distribution Width 12.4 % (11.6-14.8) Platelet Count 155 K/UL (150-450) Mean Platelet Volume 7.4 FL (6.5-10.1) Neutrophils (%) (Auto) 68.4 % (45.0-75.0) Lymphocytes (%) (Auto) 17.1 % (20.0-45.0) L Monocytes (%) (Auto) 11.0 % (1.0-10.0) H Eosinophils (%) (Auto) 2.4 % (0.0-3.0) Basophils (%) (Auto) 1.1 % (0.0-2.0) Prothrombin Time 10.7 SEC (9.30-11.50) Prothromb Time International Ratio 1.0 (0.9-1.1) Activated Partial Thromboplast Time 26 SEC (23-33) Sodium Level 144 MMOL/L (136-145) Potassium Level 3.4 MMOL/L (3.5-5.1) L Chloride Level 111 MMOL/L (98-107) H Carbon Dioxide Level 22 MMOL/L (21-32) Anion Gap 11 mmol/L (5-15) Blood Urea Nitrogen 11 mg/dL (7-18) Creatinine 1.1 MG/DL (0.55-1.30) Estimat Glomerular Filtration Rate > 60 mL/min (>60) Glucose Level 158 MG/DL (74-106) H Calcium Level 8.0 MG/DL (8.5-10.1) L Total Bilirubin 1.9 MG/DL (0.2-1.0) H Direct Bilirubin 1.5 MG/DL (0.0-0.3) H Aspartate Amino Transf (AST/SGOT) 105 U/L (15-37) H Alanine Aminotransferase (ALT/SGPT) 213 U/L (12-78) H Alkaline Phosphatase 93 U/L (46-116) Total Protein 6.2 G/DL (6.4-8.2) L Albumin 2.8 G/DL (3.4-5.0) L Globulin 3.4 g/dL Albumin/Globulin Ratio 0.8 (1.0-2.7) L Microbiology Date/Time Source Procedure Growth Status 12/08/19 16:55 Blood Blood Culture - Preliminary NO GROWTH AFTER 24 HOURS Resulted 12/08/19 16:40 Blood Blood Culture - Preliminary NO GROWTH AFTER 24 HOURS Resulted Intake and Output 12/09/19 12/10/19 19:00 07:00 Intake Total 870 ml 805 ml Output Total 400 ml 500 ml Balance 470 ml 305 ml Intake Oral 240 ml IV Total 630 ml 805 ml Output Urine Total 400 ml 500 ml Objective PHYSICAL EXAMINATION: GENERAL: The patient is well-developed, well-nourished white male, who is in moderate pain. HEENT: Eyes, pupils are equal and responsive to light and accommodation. Extraocular movements are intact. NECK: Supple. No lymphadenopathy. CHEST: Lungs are clear to auscultation bilaterally without wheezes or rales. CARDIOVASCULAR: Tachycardic, regular rhythm. S1, S2 are normal without murmurs, rubs, or gallops. ABDOMEN: Soft, tender to palpation in the epigastric region, no rebound or guarding noted. EXTREMITIES: Negative for clubbing, cyanosis, or edema. RECTAL/GENITAL: Not performed. NEUROLOGICAL: Cranial nerves II through XII are grossly intact without focal deficits. Motor strength is 5/5 bilaterally. Deep tendon reflexes are 2+ plantar. Assessment/Plan Assessment/Plan ASSESSMENT: This is a 69-year-old white male. 1. Cholecystitis. 2. Cholelithiasis. 3. Epigastric pain. 4. Elevated liver function tests. 5. Hypertension. 6. Diabetes type 2. 7. Possible choledocholithiasis TREATMENT: 1. Cholecystitis/cholelithiasis/elevated liver function tests. Surgery consultation = Dr. Castellano. The patient is currently NPO. Await laparoscopic cholecystectomy today 12/10/19. We will follow recommendations of Surgery. 2. Diabetes type 2. A NovoLog sliding scale has been instituted. The patient is unsure of his home medication. The patient is currently NPO. Fingerstick blood sugars will be performed before meals and at bedtime. 3. Hypertension. The patient is currently hypotensive. 4. S/P ERCP 12/09/19-see GI note=Dr Pollard 5. ABX=cefepime and flagyl. ID=Sergey Schulte MD Dec 10, 2019 11:36
--- NOTE | 2019-12-10 12:35 | Pulmonology Progress Note ---
Assessment/Plan Problems: (1) Cholecystitis with cholangitis (2) Chest pain (3) Epigastric pain (4) Hyperglycemia (5) Diabetes mellitus Assessment/Plan had ERCP yesterday continue NPO iv fluids, check electrolytes check cultures sliding scale with insulin coverage dvt prophylaxis. Subjective ROS Limited/Unobtainable: No Interval Events: going for surgery now Constitutional: Reports: no symptoms HEENT: Repors: no symptoms Allergies: Coded Allergies: No Known Allergies (Unverified , 11/16/14) Objective Last 24 Hour Vital Signs Date Time Temp Pulse Resp B/P (MAP) Pulse Ox O2 Delivery O2 Flow Rate FiO2 12/10/19 09:16 98.0 12/10/19 09:00 Room Air 12/10/19 08:55 64 14 12/10/19 08:39 54 162/61 12/10/19 08:00 98.7 54 18 162/61 (94) 97 12/10/19 06:11 99.0 53 18 163/63 (96) 96 12/10/19 00:00 98.8 54 20 145/63 (90) 97 12/09/19 21:00 Room Air 12/09/19 21:00 55 138/49 12/09/19 19:50 98.6 52 18 138/65 (89) 96 12/09/19 16:00 99.2 60 20 145/65 (91) 97 Intake and Output 12/09/19 12/10/19 19:00 07:00 Intake Total 870 ml 805 ml Output Total 400 ml 500 ml Balance 470 ml 305 ml Intake Oral 240 ml IV Total 630 ml 805 ml Output Urine Total 400 ml 500 ml General Appearance: WD/WN HEENT: normocephalic, atraumatic Respiratory/Chest: chest wall non-tender, lungs clear Cardiovascular: normal peripheral pulses, normal rate Abdomen: normal bowel sounds, soft, non tender Genitourinary: normal external genitalia Skin: no rash Neurologic/Psychiatric: buffing turner and counter II-XII grossly normal Lymphatic: no neck adenopathy Musculoskeletal: normal muscle bulk Microbiology Date/Time Source Procedure Growth Status 12/08/19 16:55 Blood Blood Culture - Preliminary NO GROWTH AFTER 24 HOURS Resulted 12/08/19 16:40 Blood Blood Culture - Preliminary NO GROWTH AFTER 24 HOURS Resulted Laboratory Tests 12/10/19 05:20: White Blood Count 4.1L, Red Blood Count 4.10L, Hemoglobin 12.4L, Hematocrit 36.2L, Mean Corpuscular Volume 88, Mean Corpuscular Hemoglobin 30.2, Mean Corpuscular Hemoglobin Concent 34.2, Red Cell Distribution Width 12.4, Platelet Count 155, Mean Platelet Volume 7.4, Neutrophils (%) (Auto) 68.4, Lymphocytes (% ) (Auto) 17.1L, Monocytes (%) (Auto) 11.0H, Eosinophils (%) (Auto) 2.4, Basophils (%) (Auto) 1.1, Prothrombin Time 10.7, Prothromb Time International Ratio 1.0, Activated Partial Thromboplast Time 26, Sodium Level 144, Potassium Level 3.4L, Chloride Level 111H, Carbon Dioxide Level 22, Anion Gap 11, Blood Urea Nitrogen 11, Creatinine 1.1, Estimat Glomerular Filtration Rate > 60, Glucose Level 158H, Calcium Level 8.0L, Total Bilirubin 1.9H, Direct Bilirubin 1.5H, Aspartate Amino Transf (AST/SGOT) 105H, Alanine Aminotransferase (ALT/SGPT ) 213H, Alkaline Phosphatase 93, Total Protein 6.2L, Albumin 2.8L, Globulin 3.4 , Albumin/Globulin Ratio 0.8L Current Medications Medications (Trade) Dose Ordered Sig/Mariluz Route PRN Reason Start Time Stop Time Status Last Admin Dose Admin Acetaminophen (Tylenol) 650 mg Q4H PRN ORAL fever 12/08/19 12:15 01/06/20 08:14 12/08/19 23:48 Acetaminophen (Tylenol) 650 mg Q6H PRN ORAL Mild Pain (Pain Scale 1-3) 12/08/19 12:30 01/06/20 12:29 12/09/19 21:36 Aspirin (ASA) 81 mg DAILY NG 12/09/19 09:00 01/08/20 08:59 Cefepime HCl 1 gm/ Dextrose 55 ml @ 110 mls/hr EVERY 12 HOURS IVPB 12/08/19 21:00 12/14/19 08:59 12/10/19 08:34 Clonidine HCl (Catapres tab) 0.2 mg Q2H PRN ORAL SBP>170 12/09/19 09:30 01/08/20 09:29 12/09/19 09:42 Dextrose (Dextrose 50%) 25 ml Q30M PRN IV Hypoglycemia 12/08/19 12:15 01/06/20 08:14 Dextrose (Dextrose 50%) 50 ml Q30M PRN IV Hypoglycemia 12/08/19 12:15 01/06/20 08:14 Dextrose/Sodium Chloride 1,000 ml @ 75 mls/hr [id number] IV 12/08/19 12:15 01/07/20 08:29 12/10/19 04:09 Diphenhydramine HCl (Benadryl) 25 mg Q6H PRN ORAL Itching/Pruritis 12/08/19 12:30 01/06/20 12:29 Heparin Sodium (Porcine) (Heparin 5000 units/ml) 5,000 units EVERY 12 HOURS SUBQ 12/08/19 21:00 01/06/20 08:59 Insulin Aspart (NovoLOG) BEFORE MEALS AND HS SUBQ 12/08/19 16:30 01/06/20 11:29 12/09/19 20:37 Metoprolol Tartrate (Lopressor) 25 mg EVERY 12 HOURS ORAL 12/08/19 21:00 01/06/20 20:59 12/10/19 08:39 Metronidazole (Flagyl) 500 mg Q8HR ORAL 12/08/19 14:00 12/14/19 13:59 12/10/19 06:01 Morphine Sulfate (Morphine Sulfate) 2 mg Q4H PRN IVP Moderate Pain (Pain Scale 4-6) 12/08/19 12:30 12/14/19 08:29 12/10/19 08:46 Nitroglycerin (Ntg) 0.4 mg Q5M X 3 DOSES PRN SL Prn Chest Pain 12/08/19 12:15 01/06/20 08:14 Ondansetron HCl (Zofran) 4 mg Q6H PRN IVP Nausea & Vomiting 12/08/19 12:30 01/06/20 12:29 Pantoprazole (Protonix) 40 mg DAILY IVP 12/09/19 09:00 01/06/20 08:59 12/10/19 08:33 Polyethylene Glycol (Miralax) 17 gm HSPRN PRN ORAL Constipation 12/08/19 12:30 01/07/20 12:29 Temazepam (Restoril) 15 mg HSPRN PRN ORAL Insomnia 12/08/19 12:30 12/15/19 12:29 12/09/19 21:36 Alana Clarke MD Dec 10, 2019 12:35
--- NOTE | 2019-12-10 12:57 | Infectious Diseases Prog Note ---
Assessment/Plan Assessment/Plan Abx: Cefepime 12/06- Flagyl 12/06- Assessment: Sepsis Acute cholecystitis, choledocholithiasis, cholangitis E.coli bacteremia CONS bacteremia, contaminant -12/09 SP ERCP -12/06 CT abd/p w/: 15 mm polyps, sludge ball versus stone in the body of the gallbladder. Suspect trace of pericholecystic fluid. These findings are nonspecific. Abd uS Small stones in the gallbladder. Gallbladder wall measures 6 mm in maximal thickness. Trace of pericholecystic fluid. These findings are nonspecific. -12/06 Bcx 11/15 E.coli (R amp, otherwise S), 11/15 BCx CONS; 12/08 Bcx NTD u/a neg CXR: Likely bibasilar atelectasis related to underinflation. Fever; improving no leukocytosis Elevated LFTs, improving HTN Dm2 former smoker prostate CA s/p resection 2015 Plan: -Switch Cefepime #03/21 to Ceftriaxone -Continue Flagyl #03/18-10 -f/u cx -Monitor CBC/CMP, temperatures -f/u repeat Bcx x2 -aspiration precautions -GI, Gen sx f/u Thank you for this consultation. Will continue to follow along with you. Discussed with RN Subjective Allergies: Coded Allergies: No Known Allergies (Unverified , 11/16/14) Subjective Tm 100.1 no leukocytosis repeat Bcx p sp ERCP today Objective Vital Signs Last 24 Hour Vital Signs Date Time Temp Pulse Resp B/P (MAP) Pulse Ox O2 Delivery O2 Flow Rate FiO2 12/10/19 09:16 98.0 12/10/19 09:00 Room Air 12/10/19 08:55 64 14 12/10/19 08:39 54 162/61 12/10/19 08:00 98.7 54 18 162/61 (94) 97 12/10/19 06:11 99.0 53 18 163/63 (96) 96 12/10/19 00:00 98.8 54 20 145/63 (90) 97 12/09/19 21:00 Room Air 12/09/19 21:00 55 138/49 12/09/19 19:50 98.6 52 18 138/65 (89) 96 12/09/19 16:00 99.2 60 20 145/65 (91) 97 Height (Feet): 5 Height (Inches): 6.00 Weight (Pounds): 160 Objective GENERAL: The patient is well-developed, well-nourished white male, who is in moderate pain. HEENT: Eyes, pupils are equal and responsive to light and accommodation. Extraocular movements are intact. NECK: Supple. No lymphadenopathy. CHEST: Lungs are clear to auscultation bilaterally without wheezes or rales. CARDIOVASCULAR: Tachycardic, regular rhythm. S1, S2 are normal without murmurs, rubs, or gallops. ABDOMEN: Soft, tender to palpation in the epigastric region, no rebound or guarding noted. EXTREMITIES: Negative for clubbing, cyanosis, or edema. Microbiology Date/Time Source Procedure Growth Status 12/08/19 16:55 Blood Blood Culture - Preliminary NO GROWTH AFTER 24 HOURS Resulted 12/08/19 16:40 Blood Blood Culture - Preliminary NO GROWTH AFTER 24 HOURS Resulted Laboratory Tests Test 12/10/19 05:20 White Blood Count 4.1 K/UL (4.8-10.8) L Red Blood Count 4.10 M/UL (4.70-6.10) L Hemoglobin 12.4 G/DL (14.2-18.0) L Hematocrit 36.2 % (42.0-52.0) L Mean Corpuscular Volume 88 FL (80-99) Mean Corpuscular Hemoglobin 30.2 PG (27.0-31.0) Mean Corpuscular Hemoglobin Concent 34.2 G/DL (32.0-36.0) Red Cell Distribution Width 12.4 % (11.6-14.8) Platelet Count 155 K/UL (150-450) Mean Platelet Volume 7.4 FL (6.5-10.1) Neutrophils (%) (Auto) 68.4 % (45.0-75.0) Lymphocytes (%) (Auto) 17.1 % (20.0-45.0) L Monocytes (%) (Auto) 11.0 % (1.0-10.0) H Eosinophils (%) (Auto) 2.4 % (0.0-3.0) Basophils (%) (Auto) 1.1 % (0.0-2.0) Prothrombin Time 10.7 SEC (9.30-11.50) Prothromb Time International Ratio 1.0 (0.9-1.1) Activated Partial Thromboplast Time 26 SEC (23-33) Sodium Level 144 MMOL/L (136-145) Potassium Level 3.4 MMOL/L (3.5-5.1) L Chloride Level 111 MMOL/L (98-107) H Carbon Dioxide Level 22 MMOL/L (21-32) Anion Gap 11 mmol/L (5-15) Blood Urea Nitrogen 11 mg/dL (7-18) Creatinine 1.1 MG/DL (0.55-1.30) Estimat Glomerular Filtration Rate > 60 mL/min (>60) Glucose Level 158 MG/DL (74-106) H Calcium Level 8.0 MG/DL (8.5-10.1) L Total Bilirubin 1.9 MG/DL (0.2-1.0) H Direct Bilirubin 1.5 MG/DL (0.0-0.3) H Aspartate Amino Transf (AST/SGOT) 105 U/L (15-37) H Alanine Aminotransferase (ALT/SGPT) 213 U/L (12-78) H Alkaline Phosphatase 93 U/L (46-116) Total Protein 6.2 G/DL (6.4-8.2) L Albumin 2.8 G/DL (3.4-5.0) L Globulin 3.4 g/dL Albumin/Globulin Ratio 0.8 (1.0-2.7) L Current Medications Medications (Trade) Dose Ordered Sig/Mariluz Route PRN Reason Start Time Stop Time Status Last Admin Dose Admin Acetaminophen (Tylenol) 650 mg Q4H PRN ORAL fever 12/08/19 12:15 01/06/20 08:14 12/08/19 23:48 Acetaminophen (Tylenol) 650 mg Q6H PRN ORAL Mild Pain (Pain Scale 1-3) 12/08/19 12:30 01/06/20 12:29 12/09/19 21:36 Aspirin (ASA) 81 mg DAILY NG 12/09/19 09:00 01/08/20 08:59 Cefepime HCl 1 gm/ Dextrose 55 ml @ 110 mls/hr EVERY 12 HOURS IVPB 12/08/19 21:00 12/14/19 08:59 12/10/19 08:34 Clonidine HCl (Catapres tab) 0.2 mg Q2H PRN ORAL SBP>170 12/09/19 09:30 01/08/20 09:29 12/09/19 09:42 Dextrose (Dextrose 50%) 25 ml Q30M PRN IV Hypoglycemia 12/08/19 12:15 01/06/20 08:14 Dextrose (Dextrose 50%) 50 ml Q30M PRN IV Hypoglycemia 12/08/19 12:15 01/06/20 08:14 Dextrose/Sodium Chloride 1,000 ml @ 75 mls/hr [id number] IV 12/08/19 12:15 01/07/20 08:29 12/10/19 04:09 Diphenhydramine HCl (Benadryl) 25 mg Q6H PRN ORAL Itching/Pruritis 12/08/19 12:30 01/06/20 12:29 Heparin Sodium (Porcine) (Heparin 5000 units/ml) 5,000 units EVERY 12 HOURS SUBQ 12/08/19 21:00 01/06/20 08:59 Insulin Aspart (NovoLOG) BEFORE MEALS AND HS SUBQ 12/08/19 16:30 01/06/20 11:29 12/09/19 20:37 Metoprolol Tartrate (Lopressor) 25 mg EVERY 12 HOURS ORAL 12/08/19 21:00 01/06/20 20:59 12/10/19 08:39 Metronidazole (Flagyl) 500 mg Q8HR ORAL 12/08/19 14:00 12/14/19 13:59 12/10/19 06:01 Morphine Sulfate (Morphine Sulfate) 2 mg Q4H PRN IVP Moderate Pain (Pain Scale 4-6) 12/08/19 12:30 12/14/19 08:29 12/10/19 08:46 Nitroglycerin (Ntg) 0.4 mg Q5M X 3 DOSES PRN SL Prn Chest Pain 12/08/19 12:15 01/06/20 08:14 Ondansetron HCl (Zofran) 4 mg Q6H PRN IVP Nausea & Vomiting 12/08/19 12:30 01/06/20 12:29 Pantoprazole (Protonix) 40 mg DAILY IVP 12/09/19 09:00 01/06/20 08:59 12/10/19 08:33 Polyethylene Glycol (Miralax) 17 gm HSPRN PRN ORAL Constipation 12/08/19 12:30 01/07/20 12:29 Potassium Chloride 100 ml @ 100 mls/hr Q1H IVPB 12/10/19 13:00 12/10/19 16:59 Temazepam (Restoril) 15 mg HSPRN PRN ORAL Insomnia 12/08/19 12:30 12/15/19 12:29 12/09/19 21:36 Toyin Shabazz M.D. Dec 10, 2019 12:57
[2019-12-10] MEDS ORDERED: Lidocaine 1% 10mg/ml/Epi 0.005mg/ml 30ml vial INJ ONE (13:19)
[2019-12-10] MEDS ORDERED: Iothalamate Meglumine 60% 50ML INJ ONE (13:19)
--- NOTE | 2019-12-10 14:13 | NUR ---
NURSE NOTES: npo maintained for surgery. to or via bed.
[2019-12-10] MEDS ORDERED: LR 1000ml 1,000 ML IVLG SCH (14:35)
[2019-12-10] MEDS ORDERED: Metoclopramide 10mg/2ml Inj IVP PRN ×2 (14:45→17:00)
[2019-12-10] MEDS ORDERED: Midazolam 2mg/2ml Inj IVP PRN (14:45)
[2019-12-10] MEDS ORDERED: Atropine Sulfate 0.4mg/ml inj IVP PRN (14:45)
[2019-12-10] MEDS ORDERED: DiphenhydrAMINE 50mg/ml Inj IVP PRN (14:45)
[2019-12-10] MEDS ORDERED: HYDROcodone/Acetamin 5/325 tab ORAL PRN ×2 (14:45→17:00)
[2019-12-10] MEDS ORDERED: Acetaminophen (Non formulary) 100 ML IV ONE (14:45)
[2019-12-10] MEDS ORDERED: Meperidine 50mg/ml Inj(FOR RIGORS ONLY) IVP PRN (14:45)
[2019-12-10] MEDS ORDERED: fentaNYL 100 mcg/2 mL IV PRN (14:45)
[2019-12-10] MEDS ORDERED: oxyCODONE HCL/Acetaminophen 5/325mg ORAL PRN (14:45)
[2019-12-10] MEDS ORDERED: HYDROcodone/Acetamin 7.5/325 tab ORAL PRN (14:45)
[2019-12-10] MEDS ORDERED: LORazepam Inj 2mg/ml 1ml IV PRN (14:45)
[2019-12-10] MEDS ORDERED: Sterile Water Irrig 1000ml IRRIG ONE (15:00)
[2019-12-10] MEDS ORDERED: LR 1000ml ONE (15:00)
[2019-12-10] MEDS ORDERED: NS Irrig 1000ml ONE (15:00)
[2019-12-10] MEDS ORDERED: Propofol 200mg/20ml IV ONE (15:05)
[2019-12-10] MEDS ORDERED: Lidocaine 1% MPF 10mg/ml 5ml ONE (15:05)
[2019-12-10] MEDS ORDERED: fentaNYL 100 mcg/2 mL IV ONE (15:05)
[2019-12-10] MEDS ORDERED: Sodium Chloride 10ml vial INJ ONE (15:05)
[2019-12-10] MEDS ORDERED: Midazolam 2mg/2ml Inj ONE (15:05)
--- NOTE | 2019-12-10 15:18 | Cardiac Electrophysiology PN ---
Assessment/Plan Assessment/Plan 1. Troponin elevation. Two out of 3 troponins are negative. EKG showed nonspecific T-wave abnormality with no ST elevation. Echo Nl EF. No chest pain. No prior DE or CHF. Continue aspirin and Lopressor 25 bid 2. Hypertension. On Lopressor 25 bid 3. Diabetes. 4. Cholecystitis, on antibiotic . SP EGD and ERCP NPO for Lap claudia by Dr Castellano today Subjective Subjective No CP or SOB. Had ERCP yesterday.NPO for Lap Claudia by Dr Castellano Objective Last 24 Hour Vital Signs Date Time Temp Pulse Resp B/P (MAP) Pulse Ox O2 Delivery O2 Flow Rate FiO2 12/10/19 12:00 98.2 60 17 155/68 (97) 97 12/10/19 09:16 98.0 12/10/19 09:00 Room Air 12/10/19 08:55 64 14 12/10/19 08:39 54 162/61 12/10/19 08:00 98.7 54 18 162/61 (94) 97 12/10/19 06:11 99.0 53 18 163/63 (96) 96 12/10/19 00:00 98.8 54 20 145/63 (90) 97 12/09/19 21:00 Room Air 12/09/19 21:00 55 138/49 12/09/19 19:50 98.6 52 18 138/65 (89) 96 12/09/19 16:00 99.2 60 20 145/65 (91) 97 Intake and Output 12/09/19 12/10/19 19:00 07:00 Intake Total 870 ml 805 ml Output Total 400 ml 500 ml Balance 470 ml 305 ml Intake Oral 240 ml IV Total 630 ml 805 ml Output Urine Total 400 ml 500 ml Laboratory Tests Test 12/10/19 05:20 White Blood Count 4.1 K/UL (4.8-10.8) L Red Blood Count 4.10 M/UL (4.70-6.10) L Hemoglobin 12.4 G/DL (14.2-18.0) L Hematocrit 36.2 % (42.0-52.0) L Mean Corpuscular Volume 88 FL (80-99) Mean Corpuscular Hemoglobin 30.2 PG (27.0-31.0) Mean Corpuscular Hemoglobin Concent 34.2 G/DL (32.0-36.0) Red Cell Distribution Width 12.4 % (11.6-14.8) Platelet Count 155 K/UL (150-450) Mean Platelet Volume 7.4 FL (6.5-10.1) Neutrophils (%) (Auto) 68.4 % (45.0-75.0) Lymphocytes (%) (Auto) 17.1 % (20.0-45.0) L Monocytes (%) (Auto) 11.0 % (1.0-10.0) H Eosinophils (%) (Auto) 2.4 % (0.0-3.0) Basophils (%) (Auto) 1.1 % (0.0-2.0) Prothrombin Time 10.7 SEC (9.30-11.50) Prothromb Time International Ratio 1.0 (0.9-1.1) Activated Partial Thromboplast Time 26 SEC (23-33) Sodium Level 144 MMOL/L (136-145) Potassium Level 3.4 MMOL/L (3.5-5.1) L Chloride Level 111 MMOL/L (98-107) H Carbon Dioxide Level 22 MMOL/L (21-32) Anion Gap 11 mmol/L (5-15) Blood Urea Nitrogen 11 mg/dL (7-18) Creatinine 1.1 MG/DL (0.55-1.30) Estimat Glomerular Filtration Rate > 60 mL/min (>60) Glucose Level 158 MG/DL (74-106) H Calcium Level 8.0 MG/DL (8.5-10.1) L Total Bilirubin 1.9 MG/DL (0.2-1.0) H Direct Bilirubin 1.5 MG/DL (0.0-0.3) H Aspartate Amino Transf (AST/SGOT) 105 U/L (15-37) H Alanine Aminotransferase (ALT/SGPT) 213 U/L (12-78) H Alkaline Phosphatase 93 U/L (46-116) Total Protein 6.2 G/DL (6.4-8.2) L Albumin 2.8 G/DL (3.4-5.0) L Globulin 3.4 g/dL Albumin/Globulin Ratio 0.8 (1.0-2.7) L Microbiology Date/Time Source Procedure Growth Status 12/08/19 16:55 Blood Blood Culture - Preliminary NO GROWTH AFTER 24 HOURS Resulted 12/08/19 16:40 Blood Blood Culture - Preliminary NO GROWTH AFTER 24 HOURS Resulted Objective HEAD AND NECK: No JVD. LUNGS: Clear. CARDIOVASCULAR: Regular S1 and S2 with no gallop. ABDOMEN: Soft. EXTREMITIES: No pitting edema. Mat Monaco MD Dec 10, 2019 15:18
[2019-12-10] MEDS ORDERED: Glycopyrrolate 0.2mg/ml 1ml Vial ONE (15:34)
[2019-12-10] MEDS ORDERED: Bacitracin 50000 Units Vial ONE (15:42)
--- NOTE | 2019-12-10 15:52 | Immediate Post-Op Evaluation ---
Immediate Post-Op Evalulation Immediate Post-Op Evalulation Procedure: Laparoscpic Cholecystectomy Date of Evaluation: Dec 10, 2019 Time of Evaluation: 16:55 IV Fluids: 800 LR Blood Products: 0 Estimated Blood Loss: 25 Urinary Output: 0 Blood Pressure Systolic: 180 Blood Pressure Diastolic: 83 Pulse Rate: 61 Respiratory Rate: 16 O2 Sat by Pulse Oximetry: 98 Temperature (Fahrenheit): 98.6 Pain Score (1-10): 2 Nausea: No Vomiting: No Complications 0 Patient Status: awake, reacts, patent, extubated, none Hydration Status: adequate Dru Grams Ancef IV Given Within 1 Hr of Incision: Yes Time Given: 15:46 Casey Ramirez MD Dec 10, 2019 15:52
[2019-12-10] MEDS ORDERED: Surgicel 4in x 8in TOPIC ONE (16:00)
[2019-12-10] MEDS ORDERED: Flumazenil 0.1mg/ml 5ml Inj IV ONE (16:15)
--- NOTE | 2019-12-10 16:45 | 48 Hour Post Anesthesia Eval ---
Post Anesthesia Evaluation Procedure: Laparoscpic Cholecystectomy Date of Evaluation: Dec 10, 2019 Time of Evaluation: 19:12 Blood Pressure Systolic: 173 0: 62 Pulse Rate: 59 Respiratory Rate: 18 Temperature (Fahrenheit): 98.6 O2 Sat by Pulse Oximetry: 96 Airway: patent Nausea: No Vomiting: No Pain Intensity: 2 Hydration Status: adequate Cardiopulmonary Status: Stable Mental Status/LOC: patient returned to baseline Follow-up Care/Observations: 0 Post-Anesthesia Complications: 0 Follow-up care needed: N/A Casey Ramirez MD Dec 10, 2019 16:45
--- NOTE | 2019-12-10 16:57 | Brief Operative Note ---
Immediate Post Operative Note Operative Note Pre-op Diagnosis: acute cholecystitis Procedure: lap claudia Post-op Diagnosis: same as pre-op Surgeon: naty [facility] Living Advisor: juan Anesthesiologist: minda Anesthesia: general, local Specimen: yes Complications: none Condition: stable Fluids: see records Estimated Blood Loss: minimal Drains: none Implant(s) used?: No Nii Castellano Dec 10, 2019 16:57
[2019-12-10] MEDS ORDERED: HYDROcodone/Acetamin 10/325 tab ORAL PRN (17:00)
[2019-12-10] MEDS ORDERED: Milk of Magnesia 30ml Ud ORAL PRN (17:00)
[2019-12-10] MEDS ORDERED: DiphenhydrAMINE 25mg Tab ORAL PRN (17:00)
[2019-12-10] MEDS ORDERED: Morphine Sulfate 4mg/ml Inj (IV USE ONLY) IVP PRN (17:00)
[2019-12-10] MEDS ORDERED: Sennosides 8.6mg tab ORAL PRN (17:00)
[2019-12-10] MEDS ORDERED: Morphine Sulfate 2mg/ml Inj(IV/IM USE ONLY) IVP PRN ×2 (17:00)
[2019-12-10] MEDS: Hydromorphone 0.5mg/0.5ml inj IVP PRN ×2 (17:04→18:03)
--- NOTE | 2019-12-10 18:30 | NUR ---
NURSE NOTES: REC'D FROM PACU SP LAP CHOLECYSTECTOMY. AWAKE/ALERT.ABDOMINAL LAP SITES X4 DRY AND INTACT. VS TAKEN. PAIN SCALE 5/10. IVF INFUSING. IN NO ACUTE DISTRESS.
--- NOTE | 2019-12-10 19:20 | NUR ---
HAND-OFF: Report given to PAT Lawton RN.
--- NOTE | 2019-12-10 19:30 | NUR ---
NURSE NOTES: Patient awake in bed, talking to family, no SOB noted. 4 Surgical sites on abdomen with steri stips stained with blood but no active bleeding. Call light and needs in reach. Bed in lowest and lock engaged. Instructed to call for assistance. Will continue to monitor.
--- NOTE | 2019-12-10 20:00 | NUR ---
NURSE NOTES: Patient couldn't tolerate the Potassium IV. Obtained order from Dr. Clarke to switch it to PO. Done.
[2019-12-10] MEDS ORDERED: cefTRIAXone 2 GM in D5W 55 ML IVPB SCH (21:00)
[2019-12-10] MEDS: Docusate 100mg cap ORAL SCH (21:21)
--- NOTE | 2019-12-10 22:30 | Operative Note - Dictated ---
DATE OF OPERATION: 12/10/2019 PREOPERATIVE DIAGNOSES: 1. Acute cholecystitis. 2. Choledocholithiasis. POSTOPERATIVE DIAGNOSES: 1. Acute cholecystitis. 2. Choledocholithiasis. OPERATION PERFORMED: Laparoscopic cholecystectomy. ATTENDING SURGEON: Nii Castellano M.D. ACADEMY DIRECTOR SURGEON: Dr. Lata Tobin M.D. ANESTHESIOLOGIST: Casey Ramirez M.D. ANESTHESIA: General LINING STRAP CLOSER. ESTIMATED BLOOD LOSS: Minimal. IV FLUIDS: Please see anesthesia records. COMPLICATIONS: None. DRAINS: None. COUNTS: Sponge and needle count correct x2. WOUND CLASSIFICATION: Class 3. SPECIMENS: Gallbladder and stones sent to pathology for review. COUNTS: Sponge and needle count correct x2. DRAINS: None. ESTIMATED BLOOD LOSS: Minimal. IV FLUIDS: Please see anesthesia records. INDICATIONS FOR PROCEDURE: This is a 69-year-old male, who presented to [facility] Emergency Department complaining of worsening abdominal pain, epigastric pain with radiation to the back. Onset was on the day of admission, persistently worsening. CT identified gallbladder polyps and stones. Ultrasound identified pericholecystic fluid 6 mm wall in stones. The patient had a Harper sign and was febrile. LFTs elevated with T bilirubin trending up. ERCP performed and duct cleared after sphincterotomy and balloon sweeping. The patient persists to have upper quadrant pain and given these findings, surgery was indicated and recommended. Risks, benefits, and alternatives were discussed with the patient in detail as well as the family, who expressed understanding and consented to surgery. OPERATIVE NOTE: The patient was taken to the operating room and placed on the operating table in supine position with bilateral arms out. All bony prominences were well padded. SCDs placed. Preoperative time-out taken in identifying the patient, procedure, operative staff, and surgical staff. General anesthesia was induced and the patient was intubated. The abdomen was clipped, prepped, and draped in standard surgical fashion. An infraumbilical incision was made and carried down to the subcutaneous tissue where the fascia was identified. The fascia was noted to be with abnormal scar tissue. The patient had recently had a prostate surgery, but it seemingly seemed almost as if the patient had a ventral hernia repair with mesh as the thickened tissue seemed to be consistent with potentially a mesh. Slow dissection carried down until the abdomen was entered using the open Bar technique. Once this completed, a finger sweep was done and no bowel was noted in the vicinity. A 12 mm Bar trocar was inserted and the abdomen was insufflated to 12 to 15 mmHg. The patient tolerated the insufflation well. Laparoscope was inserted and the abdomen was inspected. There were significant adhesions throughout the abdomen with omentum. Furthermore involving the right upper quadrant, there was omentum draped over the gallbladder, which was inflamed and thickened. Secondary trocars were placed under direct visualization after inflation was placed in the reverse Trendelenburg left side down position. The subxiphoid 12 mm followed by two 5 mm right subcostal ports were placed under direct visualization without complication. Local anesthetic was used throughout the procedure for skin incision and port sites. The omentum was gently dissected off the gallbladder. The gallbladder dome was identified and grasped using most lateral grasper and retracted over the liver. The infundibulum was identified and noted to be thickened with inflammatory changes. The peritoneal lining over the infundibulum was slowly dissected off until the cystic duct and artery were identified, circumferentially dissected out, and critical view was obtained. Once critical view was obtained, the cystic artery was triply clipped and divided. Good pulsation was identified from the clipped cystic artery and good hemostasis was noted. The only remaining structure entering into the infundibulum was the cystic duct. The cystic duct was doubly clipped and divided. The gallbladder was then dissected off the liver bed using electrocautery. Of note, there was a fair amount of inflammatory changes between the gallbladder and the liver bed indicative of the acute nature of his cholecystitis. Following this, gallbladder was placed in the endoscopic retrieval bag and removed using the subxiphoid port. Hemostasis was obtained with the electrocautery from the liver bed. The right upper quadrant was irrigated and suctioned clear. The cystic duct and artery were evaluated and noted to be intact, hemostatic without leakage of bile, and viable. The liver bed was inspected and noted to be hemostatic. A small piece of Surgicel was left in the liver bed. At this time, we began the conclusion of our procedure. Secondary trocars were removed under direct visualization followed by the umbilical trocar site. Abdomen was allowed to desufflate. The umbilical trocar site and fascia as well as the subxiphoid trocar site fascia were reapproximated using [id number] #0 Vicryl sutures. The skin incisions were reapproximated using 4-0 Monocryl subcuticular interrupted sutures. Skin glue and Steri-Strips were applied. The patient tolerated the procedure well was extubated and taken to postanesthetic care unit in stable condition. Nii Castellano M.D. DR: BRITT JOB#: [id number] CC: [email or web address]
--- NOTE | 2019-12-10 23:30 | NUR ---
NURSE NOTES: Patient refused to be connected to IVF and vital signs at midnight. He said he drank 2 cups of fluid up to this time and wanted to get some sleep. Will continue to monitor.
[2019-12-11] MEDS: Morphine Sulfate 2mg/ml Inj(IV/IM USE ONLY) IVP PRN (01:30)
[2019-12-11 04:00] VITALS: BP 163/66
[2019-12-11] MEDS: metroNIDAZOLE 500mg tab ORAL SCH (05:32)
[2019-12-11] MEDS: NovoLOG Insulin Flexpen SUBQ SCH (05:44)
[2019-12-11 06:26] LABS: BASOPHILS % (AUTO) 0.8 % (0.0-2.0); HEMATOCRIT 36.2 % (42.0-52.0); HEMOGLOBIN 12.4 G/DL (14.2-18.0); MEAN CORPUSCULAR VOLUME 89 FL (80-99); MONOCYTES % (AUTO) 12.2 % (1.0-10.0); PLATELET COUNT 164 K/UL (150-450); RED BLOOD COUNT 4.07 M/UL (4.70-6.10); RED CELL DISTRIBUTION WIDTH 12.4 % (11.6-14.8); WHITE BLOOD COUNT 6.8 K/UL (4.8-10.8)
[2019-12-11] MEDS: D5NS 1,000 ML IV SCH (06:55)
--- NOTE | 2019-12-11 07:24 | NUR ---
HAND-OFF: Report given to AYAKA Osborn.
--- NOTE | 2019-12-11 07:25 | NUR ---
NURSE NOTES: Received patient in bed awake. No SOB or acute distress. IV line intact and patent, no s/sx of infiltration. Wound dressing intact, no bleeding noted. HOB elevated. Bed locked in lowest position. Call light within reach. Will continue plan of care.
[2019-12-11 07:26] LABS: ALANINE AMINOTRANSFERASE 191 U/L (12-78); ALBUMIN 2.7 G/DL (3.4-5.0); ALBUMIN/GLOBULIN RATIO 0.8 (1.0-2.7); ALKALINE PHOSPHATASE 102 U/L (46-116); ANION GAP 10 mmol/L (5-15); ASPARTATE AMINO TRANSFERASE 156 U/L (15-37); BILIRUBIN,TOTAL 1.3 MG/DL (0.2-1.0); BLOOD UREA NITROGEN 10 mg/dL (7-18); CALCIUM 7.9 MG/DL (8.5-10.1); CARBON DIOXIDE 25 MMOL/L (21-32); CHLORIDE 109 MMOL/L (98-107); CREATININE 1.1 MG/DL (0.55-1.30); POTASSIUM 3.7 MMOL/L (3.5-5.1); SODIUM 144 MMOL/L (136-145)
[2019-12-11 07:27] LABS: BILIRUBIN,DIRECT 0.9 MG/DL (0.0-0.3)
[2019-12-11 08:00] VITALS: BP 160/58
[2019-12-11 08:37] VITALS: BP 160/58
[2019-12-11] MEDS: Aspirin Baby 81mg NG SCH (08:37)
[2019-12-11] MEDS: Docusate 100mg cap ORAL SCH (08:37)
[2019-12-11] MEDS: Pantoprazole Inj IVP SCH (08:37)
[2019-12-11] MEDS: Heparin 5000 units/ml inj SUBQ SCH (08:39)
[2019-12-11] MEDS ORDERED: NORCO 5-325 TA1 EACH ORAL (10:30)
[2019-12-11] MEDS ORDERED: COLACE100 MG ORAL (10:31)
--- NOTE | 2019-12-11 11:29 | NUR ---
P.T Note: P.T evaluation completed S/P lap cholecystectomy . Pt presented difficulty with movement transition during bed mobilities due to increased pain however was able to complete mobility tasks w/o physical assist needed. Pt educated on proper mobility tech. to minimize increased pain symptoms with good return demonstration. Pt is independent with transfers and ambulates independently and safely despite increased muscle guarding. NO AD needed. Pt is functioning independently and currently at baseline. Encouraged pt OOB activities and deep breathing using IS during stay. NO further P.T follow up needed. DC P.T services.
--- NOTE | 2019-12-11 11:38 | GI Progress Note ---
Assessment/Plan Problems: (1) Cholecystitis with cholangitis ICD Codes: K81.9 - Cholecystitis, unspecified; K83.09 - Other cholangitis SNOMED: 07274087 (2) Diabetes mellitus ICD Codes: E11.9 - Type 2 diabetes mellitus without complications SNOMED: 49266148 (3) Cholecystitis, acute with cholelithiasis ICD Codes: K80.00 - Calculus of gallbladder with acute cholecystitis without obstruction SNOMED: 20560228 Qualifiers: Qualified Codes: K80.00 - Calculus of gallbladder with acute cholecystitis without obstruction (4) Epigastric pain ICD Codes: R10.13 - Epigastric pain SNOMED: 97545490, 652733014 Status: stable Status Narrative Discussed with Dr. Pollard. Assessment/Plan s/p ERCP s/p cholecystectomy Follow surgical recommendations Pain management Zofran PRN Diet per surgery DC planning The patient was seen and examined at bedside and all new and available data was reviewed in the patients chart. I agree with the above findings, impression and plan. (Patient seen earlier today. Signature stamp does not reflect patient encounter time.). - Klaus Pollard MD Subjective Gastrointestinal/Abdominal: Reports: no symptoms Objective Last 24 Hour Vital Signs Date Time Temp Pulse Resp B/P (MAP) Pulse Ox O2 Delivery O2 Flow Rate FiO2 12/11/19 09:00 Room Air 12/11/19 08:37 56 160/58 12/11/19 08:00 97.0 56 20 160/58 (92) 95 12/11/19 04:00 99.1 52 20 163/66 (98) 94 12/10/19 21:00 Room Air 12/10/19 21:00 50 146/56 12/10/19 20:00 98.0 50 18 146/56 (86) 100 12/10/19 18:55 98.7 47 167/67 (100) 12/10/19 18:30 97.9 47 18 168/61 (96) 98 12/10/19 18:25 98.1 12/10/19 18:10 98.1 51 19 160/71 100 Nasal Cannula 3 12/10/19 18:03 51 15 169/65 100 Nasal Cannula 3 12/10/19 17:55 52 15 163/65 100 Nasal Cannula 3 12/10/19 17:40 50 22 158/68 100 Nasal Cannula 3 12/10/19 17:25 52 15 160/66 100 Nasal Cannula 3 12/10/19 17:14 51 15 173/75 100 Nasal Cannula 3 12/10/19 17:04 53 20 173/75 98 Simple Mask 6 12/10/19 16:56 51 22 174/73 98 Simple Mask 6 12/10/19 16:51 53 23 168/76 98 Simple Mask 6 12/10/19 16:46 98.6 61 16 180/83 98 Simple Mask 6 12/10/19 16:45 59 18 96 12/10/19 16:41 61 16 98 12/10/19 12:00 98.2 60 17 155/68 (97) 97 Intake and Output 12/10/19 12/11/19 19:00 07:00 Intake Total 1405 ml 780 ml Output Total 300 ml Balance 1105 ml 780 ml Intake Oral 500 ml IV Total 1405 ml 280 ml Output Urine Total 300 ml # Voids 1 3 Laboratory Tests Test 12/11/19 05:15 White Blood Count 6.8 K/UL (4.8-10.8) # Red Blood Count 4.07 M/UL (4.70-6.10) L Hemoglobin 12.4 G/DL (14.2-18.0) L Hematocrit 36.2 % (42.0-52.0) L Mean Corpuscular Volume 89 FL (80-99) Mean Corpuscular Hemoglobin 30.5 PG (27.0-31.0) Mean Corpuscular Hemoglobin Concent 34.3 G/DL (32.0-36.0) Red Cell Distribution Width 12.4 % (11.6-14.8) Platelet Count 164 K/UL (150-450) Mean Platelet Volume 6.4 FL (6.5-10.1) L Neutrophils (%) (Auto) 69.0 % (45.0-75.0) Lymphocytes (%) (Auto) 17.0 % (20.0-45.0) L Monocytes (%) (Auto) 12.2 % (1.0-10.0) H Eosinophils (%) (Auto) 1.0 % (0.0-3.0) Basophils (%) (Auto) 0.8 % (0.0-2.0) Sodium Level 144 MMOL/L (136-145) Potassium Level 3.7 MMOL/L (3.5-5.1) Chloride Level 109 MMOL/L (98-107) H Carbon Dioxide Level 25 MMOL/L (21-32) Anion Gap 10 mmol/L (5-15) Blood Urea Nitrogen 10 mg/dL (7-18) Creatinine 1.1 MG/DL (0.55-1.30) Estimat Glomerular Filtration Rate > 60 mL/min (>60) Glucose Level 127 MG/DL (74-106) H Calcium Level 7.9 MG/DL (8.5-10.1) L Total Bilirubin 1.3 MG/DL (0.2-1.0) H Direct Bilirubin 0.9 MG/DL (0.0-0.3) H Aspartate Amino Transf (AST/SGOT) 156 U/L (15-37) H Alanine Aminotransferase (ALT/SGPT) 191 U/L (12-78) H Alkaline Phosphatase 102 U/L (46-116) Total Protein 6.2 G/DL (6.4-8.2) L Albumin 2.7 G/DL (3.4-5.0) L Globulin 3.5 g/dL Albumin/Globulin Ratio 0.8 (1.0-2.7) L Height (Feet): 5 Height (Inches): 6.00 Weight (Pounds): 160 General Appearance: WD/WN, no apparent distress, alert Cardiovascular: normal rate Respiratory/Chest: normal breath sounds, no respiratory distress Abdominal Exam: normal bowel sounds, non tender, soft Extremities: normal range of motion, non-tender [place] [employer] SOLE Dec 11, 2019 11:38
--- NOTE | 2019-12-11 12:05 | NUR ---
NURSE NOTES: Spoke to Patient's regarding prescription medication. Per : they will fill medication at their pharmacy.
[2019-12-11] MEDS ORDERED: D5NS 1000ml IV ONE (12:19)
[2019-12-11] MEDS ORDERED: Tubing IV Secondary IV ONE (12:19)
--- NOTE | 2019-12-11 12:30 | NUR ---
NURSE NOTES: Patient discharged to home in stable condition, accompanied by daughter. Dressing dry and intact, no bleeding noted. ID band removed. IV line removed. Belongings accounted for. No new skin issues noted. Discharge instructions given, verbalized understanding. Wheeled to lobby by candy.
--- NOTE | 2019-12-11 12:39 | Surgery Progress Note ---
Surgery Progress Note Subjective Procedure Performed lap claudia Symptoms: improved, tolerating diet, voiding well Objective Last 24 Hour Vital Signs Date Time Temp Pulse Resp B/P (MAP) Pulse Ox O2 Delivery O2 Flow Rate FiO2 12/11/19 09:00 Room Air 12/11/19 08:37 56 160/58 12/11/19 08:00 97.0 56 20 160/58 (92) 95 12/11/19 04:00 99.1 52 20 163/66 (98) 94 12/10/19 21:00 Room Air 12/10/19 21:00 50 146/56 12/10/19 20:00 98.0 50 18 146/56 (86) 100 12/10/19 18:55 98.7 47 167/67 (100) 12/10/19 18:30 97.9 47 18 168/61 (96) 98 12/10/19 18:25 98.1 12/10/19 18:10 98.1 51 19 160/71 100 Nasal Cannula 3 12/10/19 18:03 51 15 169/65 100 Nasal Cannula 3 12/10/19 17:55 52 15 163/65 100 Nasal Cannula 3 12/10/19 17:40 50 22 158/68 100 Nasal Cannula 3 12/10/19 17:25 52 15 160/66 100 Nasal Cannula 3 12/10/19 17:14 51 15 173/75 100 Nasal Cannula 3 12/10/19 17:04 53 20 173/75 98 Simple Mask 6 12/10/19 16:56 51 22 174/73 98 Simple Mask 6 12/10/19 16:51 53 23 168/76 98 Simple Mask 6 12/10/19 16:46 98.6 61 16 180/83 98 Simple Mask 6 12/10/19 16:45 59 18 96 12/10/19 16:41 61 16 98 I&O Intake and Output 12/10/19 12/11/19 19:00 07:00 Intake Total 1405 ml 780 ml Output Total 300 ml Balance 1105 ml 780 ml Intake Oral 500 ml IV Total 1405 ml 280 ml Output Urine Total 300 ml # Voids 1 3 Dressing: dry Wound: clean Cardiovascular: RSR Respiratory: clear Abdomen: soft, non-tender, present bowel sounds, non-distended Extremities: no edema, no tenderness, no cyanosis Laboratory Tests Test 12/11/19 05:15 White Blood Count 6.8 K/UL (4.8-10.8) # Red Blood Count 4.07 M/UL (4.70-6.10) L Hemoglobin 12.4 G/DL (14.2-18.0) L Hematocrit 36.2 % (42.0-52.0) L Mean Corpuscular Volume 89 FL (80-99) Mean Corpuscular Hemoglobin 30.5 PG (27.0-31.0) Mean Corpuscular Hemoglobin Concent 34.3 G/DL (32.0-36.0) Red Cell Distribution Width 12.4 % (11.6-14.8) Platelet Count 164 K/UL (150-450) Mean Platelet Volume 6.4 FL (6.5-10.1) L Neutrophils (%) (Auto) 69.0 % (45.0-75.0) Lymphocytes (%) (Auto) 17.0 % (20.0-45.0) L Monocytes (%) (Auto) 12.2 % (1.0-10.0) H Eosinophils (%) (Auto) 1.0 % (0.0-3.0) Basophils (%) (Auto) 0.8 % (0.0-2.0) Sodium Level 144 MMOL/L (136-145) Potassium Level 3.7 MMOL/L (3.5-5.1) Chloride Level 109 MMOL/L (98-107) H Carbon Dioxide Level 25 MMOL/L (21-32) Anion Gap 10 mmol/L (5-15) Blood Urea Nitrogen 10 mg/dL (7-18) Creatinine 1.1 MG/DL (0.55-1.30) Estimat Glomerular Filtration Rate > 60 mL/min (>60) Glucose Level 127 MG/DL (74-106) H Calcium Level 7.9 MG/DL (8.5-10.1) L Total Bilirubin 1.3 MG/DL (0.2-1.0) H Direct Bilirubin 0.9 MG/DL (0.0-0.3) H Aspartate Amino Transf (AST/SGOT) 156 U/L (15-37) H Alanine Aminotransferase (ALT/SGPT) 191 U/L (12-78) H Alkaline Phosphatase 102 U/L (46-116) Total Protein 6.2 G/DL (6.4-8.2) L Albumin 2.7 G/DL (3.4-5.0) L Globulin 3.5 g/dL Albumin/Globulin Ratio 0.8 (1.0-2.7) L Plan Problems: (1) Epigastric pain Assessment & Plan: 69-year-old male with epigastric pain right upper quadrant radiating to the back. febrile, no leukocytosis, lactic acidosis, CT and ultrasound as below likely acute cholecystitis choledocholithiasis N.p.o. IV fluids IV antibiotics Bowel rest s/p ERCP Trend labs discussed findings with patient and family. recommend lap claudia. cystic duct not able to visualize on ercp and obstructed. prior stone cbd now clear. acute claudia Postop day #1 status post lap claudia Recovering DC home Follow-up given Rx given We will follow with recommendations Thank you for let me participate in patient's care (2) Cholecystitis, acute with cholelithiasis Assessment & Plan: IMPRESSION: 1. Small stones in the gallbladder. 2. Gallbladder wall measures 6 mm in maximal thickness. 3. Trace of pericholecystic fluid. 4. These findings are nonspecific. ABDOMEN: Liver: Unremarkable. No mass. Gallbladder and bile ducts: 15 mm polyps, sludge ball versus stone in the body of the gallbladder, best seen on series image 27. Suspect trace of pericholecystic fluid. Moderate common duct dilatation measuring up in maximum, likely patient's age. Pancreas: Unremarkable. No mass. No ductal dilation. Spleen: Unremarkable. No splenomegaly. Adrenals: Unremarkable. No mass. Kidneys and ureters: Unremarkable. No solid mass. No hydronephrosis. Stomach and bowel: Unremarkable. No obstruction. No mucosal thickening. PELVIS: Appendix: No findings to suggest acute appendicitis. Bladder: Unremarkable. No mass. Reproductive: Prostatectomy ABDOMEN and PELVIS: Intraperitoneal space: Unremarkable. No free air. No significant fluid collection. Bones/joints: Osteopenia. Moderate degenerative change. Soft tissues: Unremarkable. Vasculature: Moderate amount of atherosclerotic calcifications. No abdominal aortic aneurysm. Lymph nodes: Unremarkable. No enlarged lymph nodes. IMPRESSION: 15 mm polyps, sludge ball versus stone in the body of the gallbladder. Suspect trace of pericholecystic fluid. These findings are nonspecific. Nii Castellano Dec 11, 2019 12:39
--- NOTE | 2019-12-11 13:33 | Infectious Diseases Prog Note ---
Assessment/Plan Assessment/Plan Assessment: Sepsis Acute cholecystitis, choledocholithiasis, cholangitis E.coli bacteremia CONS bacteremia, contaminant -12/10 SP Laparoscopic cholecystectomy. -12/09 SP ERCP -12/06 CT abd/p w/: 15 mm polyps, sludge ball versus stone in the body of the gallbladder. Suspect trace of pericholecystic fluid. These findings are nonspecific. Abd uS Small stones in the gallbladder. Gallbladder wall measures 6 mm in maximal thickness. Trace of pericholecystic fluid. These findings are nonspecific. -12/06 Bcx 11/15 E.coli (R amp, otherwise S), 11/15 BCx CONS; 12/08 Bcx NTD u/a neg CXR: Likely bibasilar atelectasis related to underinflation. Fever;SP no leukocytosis Elevated LFTs, improving HTN Dm2 former smoker prostate CA s/p resection 2015 Plan: -Switch Cefepime #04/21 to Ceftriaxone -Continue Flagyl #04/18-10 -f/u cx -Monitor CBC/CMP, temperatures -f/u repeat Bcx x2 -aspiration precautions -GI, Gen sx f/u Thank you for this consultation. Will continue to follow along with you. Discussed with RN Subjective Allergies: Coded Allergies: No Known Allergies (Unverified , 11/16/14) Subjective afebrile >48hrs no leukocytosis repeat Bcx NTD Objective Vital Signs Last 24 Hour Vital Signs Date Time Temp Pulse Resp B/P (MAP) Pulse Ox O2 Delivery O2 Flow Rate FiO2 12/11/19 09:00 Room Air 12/11/19 08:37 56 160/58 12/11/19 08:00 97.0 56 20 160/58 (92) 95 12/11/19 04:00 99.1 52 20 163/66 (98) 94 12/10/19 21:00 Room Air 12/10/19 21:00 50 146/56 12/10/19 20:00 98.0 50 18 146/56 (86) 100 12/10/19 18:55 98.7 47 167/67 (100) 12/10/19 18:30 97.9 47 18 168/61 (96) 98 12/10/19 18:25 98.1 12/10/19 18:10 98.1 51 19 160/71 100 Nasal Cannula 3 12/10/19 18:03 51 15 169/65 100 Nasal Cannula 3 12/10/19 17:55 52 15 163/65 100 Nasal Cannula 3 12/10/19 17:40 50 22 158/68 100 Nasal Cannula 3 12/10/19 17:25 52 15 160/66 100 Nasal Cannula 3 12/10/19 17:14 51 15 173/75 100 Nasal Cannula 3 12/10/19 17:04 53 20 173/75 98 Simple Mask 6 12/10/19 16:56 51 22 174/73 98 Simple Mask 6 12/10/19 16:51 53 23 168/76 98 Simple Mask 6 12/10/19 16:46 98.6 61 16 180/83 98 Simple Mask 6 12/10/19 16:45 59 18 96 12/10/19 16:41 61 16 98 Height (Feet): 5 Height (Inches): 6.00 Weight (Pounds): 160 Objective GENERAL: The patient is well-developed, well-nourished white male, who is in moderate pain. HEENT: Eyes, pupils are equal and responsive to light and accommodation. Extraocular movements are intact. NECK: Supple. No lymphadenopathy. CHEST: Lungs are clear to auscultation bilaterally without wheezes or rales. CARDIOVASCULAR: Tachycardic, regular rhythm. S1, S2 are normal without murmurs, rubs, or gallops. ABDOMEN: Soft, tender to palpation in the epigastric region, no rebound or guarding noted. EXTREMITIES: Negative for clubbing, cyanosis, or edema. Microbiology Date/Time Source Procedure Growth Status 12/08/19 16:55 Blood Blood Culture - Preliminary NO GROWTH AFTER 48 HOURS Resulted 12/08/19 16:40 Blood Blood Culture - Preliminary NO GROWTH AFTER 48 HOURS Resulted Laboratory Tests Test 12/11/19 05:15 White Blood Count 6.8 K/UL (4.8-10.8) # Red Blood Count 4.07 M/UL (4.70-6.10) L Hemoglobin 12.4 G/DL (14.2-18.0) L Hematocrit 36.2 % (42.0-52.0) L Mean Corpuscular Volume 89 FL (80-99) Mean Corpuscular Hemoglobin 30.5 PG (27.0-31.0) Mean Corpuscular Hemoglobin Concent 34.3 G/DL (32.0-36.0) Red Cell Distribution Width 12.4 % (11.6-14.8) Platelet Count 164 K/UL (150-450) Mean Platelet Volume 6.4 FL (6.5-10.1) L Neutrophils (%) (Auto) 69.0 % (45.0-75.0) Lymphocytes (%) (Auto) 17.0 % (20.0-45.0) L Monocytes (%) (Auto) 12.2 % (1.0-10.0) H Eosinophils (%) (Auto) 1.0 % (0.0-3.0) Basophils (%) (Auto) 0.8 % (0.0-2.0) Sodium Level 144 MMOL/L (136-145) Potassium Level 3.7 MMOL/L (3.5-5.1) Chloride Level 109 MMOL/L (98-107) H Carbon Dioxide Level 25 MMOL/L (21-32) Anion Gap 10 mmol/L (5-15) Blood Urea Nitrogen 10 mg/dL (7-18) Creatinine 1.1 MG/DL (0.55-1.30) Estimat Glomerular Filtration Rate > 60 mL/min (>60) Glucose Level 127 MG/DL (74-106) H Calcium Level 7.9 MG/DL (8.5-10.1) L Total Bilirubin 1.3 MG/DL (0.2-1.0) H Direct Bilirubin 0.9 MG/DL (0.0-0.3) H Aspartate Amino Transf (AST/SGOT) 156 U/L (15-37) H Alanine Aminotransferase (ALT/SGPT) 191 U/L (12-78) H Alkaline Phosphatase 102 U/L (46-116) Total Protein 6.2 G/DL (6.4-8.2) L Albumin 2.7 G/DL (3.4-5.0) L Globulin 3.5 g/dL Albumin/Globulin Ratio 0.8 (1.0-2.7) L Current Medications Medications (Trade) Dose Ordered Sig/Mariluz Route PRN Reason Start Time Stop Time Status Last Admin Dose Admin Acetaminophen (Tylenol) 650 mg Q4H PRN ORAL FEVER 12/10/19 17:00 01/09/20 16:59 Acetaminophen (Tylenol) 650 mg Q6H PRN ORAL Mild Pain (Pain Scale 1-3) 12/08/19 12:30 01/06/20 12:29 12/09/19 21:36 Acetaminophen/ Hydrocodone Bitart (Benton 10/325) 1 tab Q4H PRN ORAL Severe Pain (Pain Scale 7-10) 12/10/19 17:00 12/17/19 16:59 Acetaminophen/ Hydrocodone Bitart (Benton 5/325) 1 tab Q4H PRN ORAL Moderate Pain (Pain Scale 4-6) 12/10/19 17:00 12/17/19 16:59 12/11/19 08:37 Al Hydroxide/Mg Hydroxide (Mylanta) 15 ml Q6H PRN ORAL DYSPEPSIA 12/10/19 17:00 01/09/20 16:59 Aspirin (ASA) 81 mg DAILY NG 12/09/19 09:00 01/08/20 08:59 12/11/19 08:37 Ceftriaxone Sodium 2 gm/ Dextrose 55 ml @ 110 mls/hr Q24H IVPB 12/10/19 21:00 12/17/19 20:59 12/10/19 21:29 Clonidine HCl (Catapres tab) 0.2 mg Q2H PRN ORAL SBP>170 12/09/19 09:30 01/08/20 09:29 12/09/19 09:42 Dextrose (Dextrose 50%) 25 ml Q30M PRN IV Hypoglycemia 12/08/19 12:15 01/06/20 08:14 Dextrose (Dextrose 50%) 50 ml Q30M PRN IV Hypoglycemia 12/08/19 12:15 01/06/20 08:14 Dextrose/Sodium Chloride 1,000 ml @ 75 mls/hr [id number] IV 12/08/19 12:15 01/07/20 08:29 12/10/19 18:42 Diphenhydramine HCl (Benadryl) 25 mg Q8H PRN ORAL Itching/Pruritis 12/10/19 17:00 01/09/20 16:59 Docusate Sodium (Colace) 100 mg TWICE A DAY ORAL 12/10/19 18:00 01/09/20 17:59 12/11/19 08:37 Heparin Sodium (Porcine) (Heparin 5000 units/ml) 5,000 units EVERY 12 HOURS SUBQ 12/08/19 21:00 01/06/20 08:59 12/11/19 08:39 Insulin Aspart (NovoLOG) BEFORE MEALS AND HS SUBQ 12/08/19 16:30 01/06/20 11:29 12/10/19 21:38 Magnesium Hydroxide (Mom) 30 ml BIDPRN PRN ORAL Constipation 12/10/19 17:00 01/09/20 16:59 Metoclopramide HCl (Reglan) 10 mg Q6H PRN IVP Nausea & Vomiting 12/10/19 17:00 01/09/20 16:59 Metoprolol Tartrate (Lopressor) 25 mg EVERY 12 HOURS ORAL 12/08/19 21:00 01/06/20 20:59 12/11/19 08:37 Metronidazole (Flagyl) 500 mg Q8HR ORAL 12/08/19 14:00 12/14/19 13:59 12/11/19 05:32 Morphine Sulfate (Morphine Sulfate) 1 mg Q4H PRN IVP pain scale 1-3 12/10/19 17:00 12/17/19 16:59 Morphine Sulfate (Morphine Sulfate) 2 mg Q4H PRN IVP Moderate Pain (Pain Scale 4-6) 12/08/19 12:30 12/14/19 08:29 12/11/19 01:30 Morphine Sulfate (Morphine Sulfate) 2 mg Q4H PRN IVP pain scale 4-6 12/10/19 17:00 12/17/19 16:59 Morphine Sulfate (Morphine Sulfate) 4 mg Q4H PRN IVP pain score 7-10 12/10/19 17:00 12/17/19 16:59 12/11/19 05:34 Nitroglycerin (Ntg) 0.4 mg Q5M X 3 DOSES PRN SL Prn Chest Pain 12/08/19 12:15 01/06/20 08:14 Ondansetron HCl (Zofran) 4 mg Q6H PRN IVP Nausea & Vomiting 12/08/19 12:30 01/06/20 12:29 Pantoprazole (Protonix) 40 mg DAILY IVP 12/09/19 09:00 01/06/20 08:59 12/11/19 08:37 Sennosides (Senokot) 8.6 mg BIDPRN PRN ORAL Constipation 12/10/19 17:00 01/09/20 16:59 Temazepam (RestoriL) 7.5 mg DAILYPRN PRN ORAL Insomnia 12/10/19 17:00 12/17/19 16:59 12/11/19 03:45 Toyin Shabazz M.D. Dec 11, 2019 13:33
--- NOTE | 2019-12-16 10:42 | Discharge Summary ---
Discharge Summary Discharge Summary _ DATE OF ADMISSION: 12/06/2019 DATE OF DISCHARGE: 12/11/2019 DISCHARGED BY: Dr. Goodson REASON FOR ADMISSION: 69 years old male with past medical history of hypertension, diabetes mellitus, presented with severe epigastric and left-sided chest pain , radiating to his left shoulder. Patient reported symptoms present intermittently for 3 years. Patient was evaluated at [facility] for this condition. Patient stated that he had something in his stomach. Pain reported as sharp with sudden onset. No fever or chills. No nausea , vomiting or diarrhea. Vital signs revealed elevated blood pressure 188/65 and fever 101.3. Laboratory work-up revealed no leukocytosis, stable hemoglobin , hematocrit and platelet count. Stable electrolytes. BUN 17, creatinine 1.3. Glucose 220. Total bilirubin 1.3 , direct bilirubin 0.8. AST 375, ALT 189. Lipase 98 . Troponin negative, pro BNP 82. EKG revealed sinus rhythm, no acute ischemic changes. Chest x-ray demonstrated likely basilar atelectasis . CT of the abdomen and pelvis revealed 15 mm polyp, sludge versus stone in the body of the gallbladder. While in emergency department patient received GI cocktail , antiplatelet therapy with aspirin and analgesic along with antiemetic. Pain improved. Pulse oximetry noted to be decreased . Septic work-up initiated . Patient received fluid bolus and pancultured. Patient subsequently admitted for further management CONSULTANTS: senior interior designer Dr. Cummins pulmonary Dr. Clarke ID specialist Dr. Shabazz GI specialist Dr. Pollard surgery Dr. Castellano [facility] COURSE: Patient was kept n.p.o. Patient started on the IV fluids and empiric antibiotic. DVT prophylaxis provided. Abdominal ultrasound demonstrated small stones in the gallbladder. Gallbladder wall measuring 6 mm in maximal thickness. Trace of pericholecystic fluid. Patient undergone ERCP 12/09 which revealed periampullary diverticulum. Patient had successful ERCP with a sphincterotomy and sludge/small stones removal and balloon occlusion cholangiogram. Patient started on clear liquid diet. Patient subsequently undergone on laparoscopic cholecystectomy. Pathology of gallbladder revealed acute and chronic cholecystitis with reactive changes, cholelithiasis, no evidence of malignancy. Antibiotic continued as per ID specialist recommendation. Initially blood culture revealed E. coli and Staph coagulase negative. Staph coagulase negative was likely contaminant as per ID specialist. Patient was treated for acute cholecystitis with choledocholithiasis, cholangitis and E. coli bacteremia. Fevers resolved, no leukocytosis. LFT trending down . Pain management was addressed. Supportive care provided. Patient slowly started on diet and was advanced as tolerated. Blood sugar was managed with sliding scale of insulin as needed. Blood sugar improved. Bowel regimen instituted. Patient ambulated. Patient clinically stabilized and was ready for discharge home. FINAL DIAGNOSES: Sepsis Acute cholecystitis Choledocholithiasis Cholangitis E. coli bacteremia Epigastric pain Chest pain Hyperglycemia associated with diabetes mellitus Transaminitis Status post ERCP with sphincterotomy and stone removal Diabetes mellitus DISCHARGE MEDICATIONS: See Medication Reconciliation list. DISCHARGE INSTRUCTIONS: Patient was discharged home. Follow-up with a primary care provider in 1 week I have been assigned to dictate discharge summary for this account. I was not involved in the patient's management. Callie Elder NP Dec 16, 2019 10:42
== END 2019-12-11 12:20 | disposition home or self-care (01) | DRG 854 ==
LOC: EMR 19:14 → 3E 19:30 → EDBEDREQSVC 12-07 00:41 → EDBEDREQ 12-07 00:41 → 2E 12-07 09:50 → 3E 12-08 12:02
PROC: 0FC98ZZ Extirpation of Matter from Common Bile Duct, Via Natural or Artificial Opening Endoscopic (ICD-10-PCS; principal; 2019-12-09 08:06)
PROC: 0FT44ZZ Resection of Gallbladder, Percutaneous Endoscopic Approach (ICD-10-PCS; 2019-12-10)
DX: A41.9 Sepsis, unspecified organism (principal); K80.62 Calculus of gallbladder and bile duct with acute cholecystitis without obstruction; E11.65 Type 2 diabetes mellitus with hyperglycemia; Z85.46 Personal history of malignant neoplasm of prostate; I10 Essential (primary) hypertension; Z87.891 Personal history of nicotine dependence
CPT/HCPCS: 36415; 71045; 74018; 74177; 74328; 76000; 76700; 80048; 80053; 80061; 81003; 82150; 82248; 82378; 82550; 82962; 83605; 83690; 83735; 83880; 84100; 84443; 84484; 85025; 85610; 85651; 85730; 86140; 87040; 87181; 93005; 93306; 94003; 94150; 96361; 96365; 96367; 96375; 99285; J1815; J2250; J2405; J2765; J7030